=== PATIENT | female | born 1985 | race Caucasian/White ===

== ENCOUNTER → 2018-01-10 08:43 | Outpatient (REF) | payer MEDICAID, SELFPAY ==
[2018-01-10 20:56] LABS: ALT 27 U/L (12-78); AST 17 U/L (15-37); Albumin 4.4 g/dL (3.4-5.0); Alkaline Phosphatase 57 U/L (46-116); Bilirubin, Direct 0.15 mg/dL (0.00-0.20); Bilirubin, Total 0.6 mg/dL (0.2-1.0); TSH (W/Ref FT4) 2.89 uIU/mL (0.358-3.74); Total Protein 7.5 g/dL (6.4-8.2)
== END ==
LOC: NCHCN 08:43
PROVIDERS: PCP Physician Assistant Medical; Visit Provider Physician Assistant Medical
DX: E03.9 Hypothyroidism, unspecified (principal)
CPT/HCPCS: 80076; 84443

== ENCOUNTER 2018-12-25 09:19 | Outpatient (REF) | payer OTHER, SELFPAY ==
[2018-12-25 21:27] LABS: Hemoglobin A1C 5.4 % (4.5-6.2)
[2018-12-25 21:52] LABS: ALT 27 U/L (12-78); AST 14 U/L (15-37); Albumin 4.2 g/dL (3.4-5.0); Alkaline Phosphatase 50 U/L (46-116); Anion Gap 10.5 mmol/L (3-11); BUN 12 mg/dL (7-18); Bilirubin, Total 0.4 mg/dL (0.2-1.0); CO2 23.5 mmol/L (21.0-32.0); Calcium 8.9 mg/dL (8.5-10.1); Calculated LDL 133 mg/dL; Chloride 105 mmol/L (98-107); Cholesterol 196 mg/dL (50-200); Ferritin 43 ng/mL (8-388); Glucose 94 mg/dL (70-100); HDL Cholesterol 44 mg/dL (40-60); Potassium 4.6 mmol/L (3.5-5.1); Sodium 139 mmol/L (136-145); Total Protein 7.1 g/dL (6.4-8.2); Triglyceride 99 mg/dL (30-150)
== END 2018-12-25 09:39 ==
LOC: NCHCN 09:19
PROVIDERS: PCP Physician Assistant Medical; Visit Provider Physician Assistant Medical
DX: Z00.00 Encounter for general adult medical examination without abnormal findings (principal); E03.9 Hypothyroidism, unspecified; K76.9 Liver disease, unspecified; Z13.1 Encounter for screening for diabetes mellitus; Z13.220 Encounter for screening for lipoid disorders
CPT/HCPCS: 80053; 80061; 83721; 82728; 83036; 84443

== ENCOUNTER 2019-12-10 09:12 | Outpatient (REF) | payer OTHER, SELFPAY ==
--- NOTE | 2019-12-10 08:30 | PAPFT_PTH ---
PATIENT: Radha Veras LOC: [facility] U#:[id number] AGE/SX: 34/F ROOM: RE12/10/[address]: GIOVANNY Crawford : 1985 BED: DIS: 12/10/2019 SPEC #: [id number] RECD: 12/10/19 12:57 STATUS: CARMEN REBrandi #: [id number] PADMINI: 12/10/19 08:[address]: Danii Mo DEPT: [facility] Cytology RECD BY: Ashley Persaud ENTERED: 12/10/19 12:57 SP TYPE: PAPFT OT DR: Chelsey Preciado Tissues: 1 - CX/ENDOCX FOR PAP SMEARS Procedures: PAP THIN PREP/UVM Screening HPV DNA PROBE Comments: [id number]
== END 2019-12-10 09:32 ==
LOC: LBN 09:12
PROVIDERS: PCP Physician Assistant Medical; Visit Provider Nurse Practitioner Family
DX: Z12.4 Encounter for screening for malignant neoplasm of cervix (principal); Z11.51 Encounter for screening for human papillomavirus (HPV)
CPT/HCPCS: 88142; 87624

== ENCOUNTER 2020-08-06 15:15 | Outpatient (REF) | payer OTHER, SELFPAY ==
[2020-08-06 16:04] LABS: TSH 2.16 uIU/mL (0.36-3.74)
== END 2020-08-06 15:16 | disposition home or self-care (01) ==
LOC: NCHCN 15:15
PROVIDERS: PCP Physician Assistant Medical; Visit Provider Physician Assistant Medical
DX: E03.9 Hypothyroidism, unspecified (principal)
CPT/HCPCS: 84443

== ENCOUNTER 2021-03-18 08:37 | Outpatient (CLI) | payer MEDICAID, SELFPAY ==
--- NOTE | 2021-03-18 08:30 | RT.EKG_ITS ---
APPROVED REPORT Exam: Resting ECG Reason for Exam: chest discomfort Patient Location: O HR:90 bpm ECG Measurements Heart Rate 90 AXIS WV 174 P 40 QRSd 125 QRS 26 QT 374 T 42 QTc 458 Conclusion Sinus rhythm...normal P axis, V-rate 60- 99 IncRBBB
== END 2021-03-18 08:38 | disposition home or self-care (01) ==
LOC: DI.CM 08:38
PROVIDERS: PCP Physician Assistant Medical; Visit Provider Physician Assistant
DX: R07.89 Other chest pain (principal)
CPT/HCPCS: 93010

== ENCOUNTER 2021-03-18 21:32 | Outpatient (REF) | payer MEDICAID, SELFPAY ==
[2021-03-18 19:52] LABS: FREE T4 0.96 ng/dL (0.76-1.46)
== END 2021-03-18 21:33 | disposition home or self-care (01) ==
LOC: NCHCN 21:32
PROVIDERS: PCP Physician Assistant Medical; Visit Provider Physician Assistant
DX: R00.0 Tachycardia, unspecified (principal)
CPT/HCPCS: 84439; 84443

== ENCOUNTER 2021-04-23 16:29 | Outpatient (REF) | payer MEDICAID, SELFPAY ==
[2021-04-24 11:41] LABS: COVID-19 RT-PCR UVMMC Result Negative (Negative)
== END 2021-04-23 16:30 | disposition home or self-care (01) ==
LOC: NCHCN 16:29
PROVIDERS: PCP Physician Assistant Medical; Visit Provider Nurse Practitioner Family
DX: Z20.822 Contact with and (suspected) exposure to COVID-19 (principal); J32.8 Other chronic sinusitis
CPT/HCPCS: U0003

== ENCOUNTER 2021-08-25 16:12 | Outpatient (REF) | payer MEDICAID, SELFPAY ==
[2021-08-25 12:48] LABS: Abs Immature Grans 0.02 10^3/uL (0.0-0.06); Absolute Basophil Count 0.04 10^3/uL (0.0-0.2); Absolute Eosinophil Count 0.13 10^3/uL (0.0-0.7); Absolute Lymphocyte Count 1.74 10^3/uL (1.2-3.4); Absolute Monocyte Count 0.46 10^3/uL (0.1-0.8); Absolute Neutrophil Count 3.94 10^3/uL (1.2-6.7); Basophils % 0.6; Eosinophils % 2.1; HCT 41.5 % (36.0-46.0); HGB 14.2 g/dL (11.2-15.7); Immature Grans % 0.3; Lymphocytes % 27.5; MCH 29.6 pg (27.0-33.0); MCHC 34.2 % (32.0-36.0); MCV 86.5 fL (80-95); MPV 11.7 fL (8.0-11.0); Monocytes % 7.3; Neutrophils % 62.2; Nucleated RBC 0 %; Platelet Count 190 10^3/uL (130-400); RDW-SD 38.3 fL; WBC 6.33 10^3/uL (4.4-10.8)
[2021-08-25 13:06] LABS: ALT 27 U/L (14-59); AST 19 U/L (15-37); Albumin 4.4 g/dL (3.4-5.0); Alkaline Phosphatase 68 U/L (46-116); Anion Gap 8.3 mmol/L (3-11); BUN 15 mg/dL (7-18); Bilirubin, Total 0.4 mg/dL (0.2-1.0); CO2 26.7 mmol/L (21.0-32.0); CREATININE 0.9 mg/dL (0.55-1.02); Calcium 9.3 mg/dL (8.5-10.1); Chloride 103 mmol/L (98-107); Glucose 89 mg/dL (74-106); Potassium 4.1 mmol/L (3.5-5.1); Sodium 138 mmol/L (136-145); TSH (W/Ref FT4) 1.63 uIU/mL (0.36-3.74); Total Protein 7.5 g/dL (6.4-8.2)
== END 2021-08-25 16:13 | disposition home or self-care (01) ==
LOC: NCHCN 16:12
PROVIDERS: PCP Physician Assistant Medical; Visit Provider Physician Assistant Medical
DX: R11.2 Nausea with vomiting, unspecified (principal); K80.20 Calculus of gallbladder without cholecystitis without obstruction
CPT/HCPCS: 80053; 84443; 85025

== ENCOUNTER → 2021-09-21 01:25 | Outpatient (CLI) | payer MEDICAID, SELFPAY ==
--- NOTE | 2021-09-21 07:45 | DI.US_ITS ---
Exam(s) US ABDOMEN EXAM: US ABDOMEN CLINICAL HISTORY: Nause and vomiting w/o abd pain Hx gallstones,r11.2 TECHNIQUE: Ultrasound abdomen performed using standard protocol. COMPARISON: No exams were available for comparison FINDINGS: LIVER: Normal size and echogenicity. No focal liver lesions are seen.. GALLBLADDER: Several large stones.. No evidence of wall thickening. No pericholecystic fluid identif ied. MUNOZ'S SIGN: Negative. BILIARY SYSTEM: No intrahepatic or extrahepatic biliary ductal dilation. KIDNEYS: Kidneys are symmetric in size. No evidence of renal calculi. No evidence of hydronephrosis. No renal mass or cyst identified. PANCREAS: Normal where visualized. SPLEEN: Not enlarged. ABDOMINAL AORTA AND IVC: Visualized portions normal caliber. ASCITES: None seen. IMPRESSION: Cholelithiasis. DATA REPOSITORY:
== END ==
PROVIDERS: PCP Physician Assistant Medical; Visit Provider Physical Therapy Assistant
DX: R11.2 Nausea with vomiting, unspecified (principal); K80.20 Calculus of gallbladder without cholecystitis without obstruction
CPT/HCPCS: 76700

== ENCOUNTER 2021-09-28 07:31 | Outpatient (REF) | payer MEDICAID, SELFPAY ==
[2021-09-28 09:57] LABS: Source Nasal/Nares
[2021-09-28 14:03] LABS: COVID-19 PCR Negative (Negative)
== END 2021-09-28 07:32 | disposition home or self-care (01) ==
LOC: LBN 07:31
PROVIDERS: PCP Physician Assistant Medical; Visit Provider Surgery
DX: Z20.822 Contact with and (suspected) exposure to COVID-19 (principal); Z01.818 Encounter for other preprocedural examination
CPT/HCPCS: 87635

== ENCOUNTER 2021-09-29 06:20 | Day surgery (SDC) | payer MEDICAID, SELFPAY ==
--- NOTE | 2021-09-28 10:13 | PDOC.DSDIS_ITS ---
Discharge Plan Disposition Patient Disposition: HOME Condition: Good Discharge Details Reason For Visit: gallbladder removal Attending Provider: Alisha Flores Primary Care Provider: Chelsey Preciado Home Meds and New Rx's Prescriptions: New tramadol [Ultram] 50 mg tablet 50 mg PO Q6H PRNQty: 10 0RF ondansetron 4 mg tablet,disintegrating 4 mg PO Q6H PRNQty: 6 0RF Continued Mirena 20 mcg/24 hours (5 yrs) 52 mg intrauterine device 1 device IY ONCE 0RF Rx Instructions: as a single dose; placed in 06/2016 lorazepam [Ativan] 1 mg tablet 1 mg PO Q8H PRN (Reason: anxiety) Qty: 3 0RF levothyroxine 137 mcg capsule 137 mcg PO DAILY 0RF Discharge Instructions Additional Instructions: Care after Gallbladder Surgery ? ? -Pain control: ?For the first 72 hours after surgery, take you pain meds continuously and not just when you have pain.?? Alternate Tylenol 1000mg by mouth every 8 hours, and Ibuprofen 600mg every 6 hours.? Make sure you take ibuprofen with food and not on an empty stomach.? ??Use the tramadol for breakthrough pain- pain that is greater than a 7. ?- Use ICE! Ice really helps to keep the swelling down, and swelling causes pain. ??Twenty minutes on, and then off, continuously for the first 72hours.? After the first 72hrs, you can just use the Tylenol, ibuprofen or Celebrex, and ice, ?when you have pain.?? If you are taking narcotic pain medication, follow the instructions on the label and do not drive. Pain medications can make you very constipated. Make sure you are moving your bowels daily. If not, take Miralax, milk of magnesia or magnesium citrate.? - Anesthesia makes you very constipated.? Take a dose of milk of magnesia the morning after surgery. ? Use an ice bag for the first 72 hours. This helps to decrease swelling, which causes pain. It is normal to be more sore/painful and swollen towards the end of the day and first thing in the morning. ? Gallbladder surgery can make you very nauseated; use Zofran for nausea, for the first 24 hours. The nausea generally stops after 24 hours. ? Use milk of magnesia or prune juice to prevent constipation (this is a particular side effect of pain medication and anesthesia). Do not allow yourself to become constipated. ? ? Avoid fatty or greasy foods; introduce these slowly, with care, after about 1 month. ? High-fat foods include: ? Foods that are fried, like [place] fries and potato chips ? High-fat meats, such as vernon, bologna, sausage, ground beef, and ribs, pork products ? High-fat dairy products, such as cheese, ice cream, cream, whole milk, and sour cream ? Pizza ? Foods made with lard or butter ? Creamy soups or sauces ? Meat gravies ? Chocolate ? Oils, such as palm and coconut oil ? Skin of chicken or turkey ? Nuts and nut butters ? Avacadoes ? ? Start out eating very small, bland amounts of food. Do not take pain pills on an empty stomach. - You will notice purple discoloration around the incisions.? This is the ?skin glue?.? This will wear off on its own.? It is OK to shower after 24hrs.? You do not need to cover the incisions. -You should walk frequently, gradually, increasing the distance. You may climb stairs, just go slowly. ? Do not go swimming or sit in a hot tub for two weeks. ? There are no stitches to remove. ? Do not drive your car x72hrs and then only if you have no pain and can move freely. Do not drive if you are taking pain narcotic pain medications. ? You may resume sexual activity whenever pain and soreness subside, usually in 2 weeks. ? Do no lift anything over 5 lbs. for two weeks. ? You may return to work in one week, or when you feel able, provided you do not have to do any heavy lifting or prolonged standing. ? ? You should return to Dr. Flores?s office for a post-op appointment about two weeks after surgery. A follow-up should have been scheduled for you already.? If there is not, please call the Surgical Clinic at: [phone] to schedule an appointment. ? My Medications for pain and nausea are: Tylenol/ibuprofen ?and ultram- for severe pain ?and Zofran-nausea ? ? When to Call the Office: ? If the incision becomes red or swollen, or there is more than a little dr gordon from it. ? If you develop a temperature higher than 100.5 F. ? If your eyes turn yellow ? Vomiting and can?t keep fluids down ? Activity:: see above Remove Dressings/Wound Care:: 24 hours Shower/Bathe:: 24 hours Diet:: low fat Discharge Orders Discharge Orders: Discharge Order (Routine); Ordered 09/28/21 Ordered By: Alisha Flores
--- NOTE | 2021-09-28 10:16 | ROE_ITS ---
Date of service: 09/29/21 Time of Service: 08:30 Operative Note Operative Note DATE OF PROCEDURE: 09/29/21 PRE-OP DIAGNOSIS: chronic markie w/ stones POST-OP DIAGNOSIS: same PROCEDURE: lap markie SURGEON: Alisha Enrique COMPUTER INSTALLER: Lorie Ellison ANESTHESIA TYPE: Local By Surgeon and General LMA/ETT Refer to Anesthesia Record ESTIMATED BLOOD LOSS: 10 PATHOLOGY: other COMPLICATIONS: None Patient was transported to: PACU Patient's condition: stable Procedure Description: INDICATIONS: The pt is seen at the request of there PCP regarding acute on chronic cholecystitis, cholelithiasis. The pt has failed outpt conservative medical measures and is here today for laparoscopic cholecystectomy. Informed consent was obtained, explaining risks and benefits of the procedure including but not limited to bleeding, infection, pneumonia, blood clots, possible damage to bowel, bladder, blood vessels, bile ducts, possible open procedure, complications of general anesthesia and other unforetold complications. PROCEDURE: The patient agrees and is brought to the operative room suite and placed in supine position. Anesthesia was administered per the Department of Anesthesia. The patient did receive IV antibiotics. NG tube and Moore catheter are placed. The patient was prepped and draped in the usual sterile fashion using DuraPrep scrub solution. Pause for the cause was done. 20 mL of 1% buffered lidocaine was used for local anesthetization. A stab incision was made in the umbilicus and the Verres inserted. Drop test was positive and insufflation was begun. When 15 mm of pressure was noted on the monitor, the Veress was removed and #5 port inserted. The camera was inserted through the port and shows no damage to underlying structures. A 10 mm port was then placed in the epigastric position under direct visualization following creation of local field blocks as well as two 5 mm ports in the right upper quadrant. The gallbladder fundus was grasped and retracted towards the right shoulder. Infundibulum was grasped and retracted laterally. The hepat-duodenal ligament is entered. The cystic duct and artery are dissected out and the most inferior portion of the gallbladder plate is removed from the liver and the critical view of safety was obtained after clearing away all fatty material. Endo Clips were placed across the duct and artery and these structures are divided. The remainder of the gallbladder was excised from the liver bed. The gallbladder was placed in a bag and brought out. Examination of the gallbladder shows indeed the cystic duct and artery to have been divided. The remainder of the abdomen was copiously irrigated with a liter of saline. All saline is removed. There is no bleeding or bile leakage from the liver bed or the clips sites. An EndoClose needle was used to close the 10 mm port site with an 0 Vicryl. All ports and instruments are removed. SPonge and needle counts are correct. Pneumoperitoneum is evacuated and the port sites are monitored to make sure there is no bleeding at the time of desufflation. The epigastric port site is instilled w/ 10cc Experel at the time of closure. ?Port sites are irrigated and the skin is closed with 4-0 Monocryl in a running subcuticular fashion. Skin glue sterile dressings are applied. The patient tolerated the procedure well without complications, transferred to the recovery room in stable condition. ALISHA ENRIQUE, DO ?
[2021-09-29] VITALS (12 sets, daily range): BP systolic 137–152; BP diastolic 57–96; PULSE 71–89; RESP 16–23; TEMP 36.3–36.6; O2SAT 96–100; BMI 33.7
[2021-09-29] MEDS: Gabapentin 300 MG CAP 600 MG PO (06:49)
[2021-09-29] MEDS: Lactated Ringers 1,000 ML 80 ML IV (06:58)
--- NOTE | 2021-09-29 06:58 | W.ANESPRE ---
General Info Date of Service Date Performed: 09/29/21 Height: 5 ft 7 in Weight: 97.7 kg Body Mass Index (BMI): 33.7 Surgical Procedure: Operation Date: 09/29/21 08:25 Proposed Procedure Side Surgeon p Cholecystectomy Laparoscopic Alisha Flores DO Meds Allergies and Home Medications Allergies Allergy/AdvReac Type Severity Reaction Status Date / Time Penicillins AdvReac Mild yeast Verified 09/29/21 06:38 infection Home Medication Medication Instructions Recorded levonorgestrel 20 mcg/24 hours (7 1 device IY ONCE 12/10/19 yrs) 52 mg intrauterine device (Mirena) lorazepam 1 mg tablet (Ativan) 1 mg PO Q8H PRN #3 tab 03/18/21 levothyroxine 137 mcg capsule 137 mcg PO DAILY 08/28/21 Current Visit Medications: Current Medications Generic Name Dose Route Start Last Admin Trade Name Freq PRN Reason Stop Dose Admin Acetaminophen 1,000 mg 09/29/21 06:00 Acetaminophen 500 Mg Tab PO 10/28/21 23:59 PREOP BONI Gabapentin 600 mg 09/29/21 06:00 09/29/21 06:49 Gabapentin 300 Mg Cap PO 10/28/21 23:59 600 mg PREOP BONI Administration Hydromorphone HCl 0.2 mg 09/28/21 10:12 Hydromorphone 2 Mg/Ml Vial IVP Q1H PRN PRN Ondansetron HCl 4 mg/ Sodium 52 mls @ 200 mls/hr 09/28/21 10:12 Chloride IVPB Q6H PRN PRN Ringer's Solution 1,000 mls @ 80 mls/hr 09/29/21 06:00 IV 10/28/21 23:59 INFUSION BONI Cefazolin Sodium/Dextrose 2 gm in 50 mls @ 100 mls/hr 09/29/21 06:00 Ancef Duplex IVPB 10/28/21 23:59 PREOP BONI IV Miscellaneous Supplies 1 each 09/29/21 06:00 Iv Access IV 10/28/21 23:59 DIRECTED OBNI Sodium Chloride 0 ml 09/29/21 06:00 Normal Saline Flush 10 Ml Syr IV 10/28/21 23:59 PRN PRN Sodium Chloride 0 ml 09/29/21 06:00 Normal Saline 10 Ml Vial IJ 10/28/21 23:59 DIRECTED PRN Sterile Water 0 ml 09/29/21 06:00 Water,Injection,Sterile 10 Ml Vial IJ 10/28/21 23:59 DIRECTED PRN PFSH Active Problems Active Problems: Problem Status Onset Code Hypothyroidism 05/02/13 E03.9 Rosacea L71.9 IUD surveillance Z30.431 Nausea & vomiting R11.2 Gallstones K80.20 Diarrhea R19.7 Medical History Medical History Anxiety Bladder pain (08/03/17) Onset 5yrs ago. Begins a week prior to menses. Stabbing pain in bladder when trying to void. No hematuria. Will begin Amitryptiline daily and Pyridium with onset of sx. 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 G3 13#7oz which had dystocia during and day of life#2 For C/S delivery regardless of gestational age Sinusitis Medical History Comments:: Severe N/V after waking up from anesthesia Surgical History Surgical History (Updated 09/29/21 @ 06:38 by Cathy Guy, RN) History of section History of elective section 2016-declined repeat vaginal delivery after the of her macrosomic daughter. Hx of bilateral breast reduction surgery Tobacco Smoking/Tobacco Use Status: Never Passive smoking exposure: No Alcohol Alcohol Intake: current Alcohol intake frequency: holidays/special occasions only Substance Use Substance use: Never Substance use type: does not use Prental History History 4 Para Hx # Term Pregnancies 4 Multiple births Hx # Pregnancies Ectopic pregnancies AB induced Hx Number of Living Children AB spontaneous Vital Signs and Lab Results Vital Signs Most Recent Vital Signs in EMR: Most Recent Vital Signs Temp Pulse Resp BP Pulse Ox 36.6 C 89 17 141/84 H 98 09/29/21 06:40 09/29/21 06:40 09/29/21 06:40 09/29/21 06:40 09/29/21 06:40 Point of Care Results Point of Care Results: POC- Test(urine) Negative 09/29/21 06:47 Lab Results Blood Type / Crossmatch: No Data to Display Complete Blood Count: No Data to Display Complete Metabolic Panel: No Data to Display Liver Function Panel: No Data to Display Coagulation Panel: No Data to Display Cardiac Panel: No Data to Display Arterial Blood Gas: No Data to Display Venous Blood Gas: No Data to Display Pancreas Panel: No Data to Display Thyroid Panel: No Data to Display Infectious Disease: Coronavirus (COVID-19)(PCR) Negative (Negative) 09/28/21 07:10 09/28/21 Coronavirus 2019 Source Nasal/Nares 09/28/21 07:10 09/28/21 Blood Cultures: No Data to Display Toxicology Panel: No Data to Display Panel: No Data to Display Anesthesia Assessment and Plan Anesthesia History Personal History: PONV Family History: Other Exercise Tolerance Exercise Tolerance: Metabolic Equivalents>4 Pertinent Negatives Pertinent Negatives: No Major Cardiovascular Symptoms or Complaints and No Major Pulmonary Symptoms or Complaints Cardiac & Pulmonary Exam Cardiac Exam: Normal S1/S2 Heart Sounds Pulmonary Exam: Clear Bilateral Breath Sounds Implantable Cardiac Device Does patient have a Pacemaker or an ICD?: No Airway Exam Known Difficult Airway: No Mallampati Class: 2 Mouth Opening: Normal (> 3cm) Thyromental Distance: Greater than 3 cm Neck Range of Motion: Full ROM Neck Circumference: Normal Teeth Condition: Normal Dentition ASA Classification ASA Score: ASA 2 Emergency Case?: No NPO Status NPO Status: NPO Clears >2 hours, Solids >8 hours Status Status: Negative HCG Anesthesia Plan Resuscitation Status: Full Code Anesthesia Technique: General Anesthesia Airway Planned: Endotracheal Tube Monitors Used: Standard Monitors and SedLine
[2021-09-29] MEDS: Acetaminophen 500 MG TAB 1000 MG PO (07:29)
[2021-09-29] MEDS: ceFAZolin 2 GM/50 ML BAG IVPB (08:28)
[2021-09-29] MEDS: Bupivacaine 0.25% Pres-Free 30 ML VIAL (09:07)
--- NOTE | 2021-09-29 09:22 | GB_PTH ---
PATIENT: Radha Veras LOC: [facility] U#:[id number] AGE/SX: 36/F ROOM: RE09/29/[address]: Alisha Flores : 1985 BED: DIS: 09/29/2021 SPEC #: [id number] RECD: 09/29/21 12:57 STATUS: CARMEN REQ #: [id number] PADMINI: 09/29/21 09:[address]: Alisha Flores DEPT: Surgical Specimen RECD BY: Ashley Persaud ENTERED: 09/29/21 12:57 SP TYPE: GB OTHR DR: Chelsey Preciado Tissues: 1 - GALLBLADDER Procedures: GROSS AND MICRO LEVEL 3 Comments: [id number]
[2021-09-29] MEDS: Normal Saline 10 ML VIAL IJ (10:42)
[2021-09-29] MEDS: HYDROmorphone 2 MG/ML VIAL IVP ×2 (10:42→11:05)
--- NOTE | 2021-09-29 11:17 | NUR.NOTE ---
Nurse called PACU for update since pt. was in PACU since 10:00 am. Pt's was called to update about pt's status Nursing Note:
--- NOTE | 2021-09-29 12:14 | W.ANESPOSTOP ---
Postoperative Evaluation Date, Time and Location Date Performed: 09/29/21 Time Performed: 12:15 Patient Location: Day Surgery Unit Vital Signs Most Recent Imported Vital Signs: Most Recent Vital Signs Temp Pulse Resp BP Pulse Ox 36.6 C 84 17 142/90 H 96 09/29/21 12:08 09/29/21 12:08 09/29/21 12:08 09/29/21 12:08 09/29/21 12:08 Pain Score Most Recent Pain Score: Most Recent Pain Score Pain Level 6 09/29/21 12:08 Assessment Mental Status: Awake (Alert & Oriented to Patient Baseline) Airway and Respiratory Function: Patent airway with normal (patient baseline) respiratory exam Cardiovascular Function: Hemodynamically Stable Hydration Status: Adequately Hydrated Nausea & Vomiting: No Nausea or Vomiting Pain: Pain is tolerable per patient Peripheral Nerve Block: Patient did not receive a nerve block
[2021-09-29] MEDS: traMADol 50 MG TAB PO (13:20)
== END 2021-09-29 14:06 | disposition home or self-care (01) ==
LOC: SUR 06:20
PROVIDERS: PCP Physician Assistant Medical; Visit Provider Surgery
PROC: 0FT44ZZ Resection of Gallbladder, Percutaneous Endoscopic Approach (ICD-10-PCS; CPT 47562; principal; 2021-09-29 08:15)
DX: K80.10 Calculus of gallbladder with chronic cholecystitis without obstruction (principal); E03.9 Hypothyroidism, unspecified; L71.9 Rosacea, unspecified; F41.9 Anxiety disorder, unspecified; K31.A0 Gastric intestinal metaplasia, unspecified
CPT/HCPCS: 47562; 81025; 88304; J0690; J1100; J1200; J1885; J2001; J2250; J2405

== ENCOUNTER 2021-11-20 10:32 | Outpatient (REF) | payer MEDICAID, SELFPAY ==
[2021-11-22 09:26] LABS: HSV 1 DNA Result Negative (Negative); HSV 2 DNA Result Negative (Negative); Varicella Zoster DNA Result Negative ((See Note))
== END 2021-11-20 10:33 | disposition home or self-care (01) ==
LOC: NCHCN 10:32
PROVIDERS: PCP Physician Assistant Medical; Visit Provider Physician Assistant Medical
DX: R21 Rash and other nonspecific skin eruption (principal); R23.8 Other skin changes
CPT/HCPCS: 87529; 87798

== ENCOUNTER 2022-08-25 14:52 | Outpatient (REF) | payer MEDICAID, SELFPAY ==
[2022-08-26 12:17] LABS: TSH (W/Ref FT4) 3.89 uIU/mL (0.36-3.74)
[2022-08-26 12:48] LABS: FREE T4 0.99 ng/dL (0.76-1.46)
[2022-08-26 13:26] LABS: Hemoglobin A1C 5.4 % (<5.7)
== END 2022-08-25 14:53 | disposition home or self-care (01) ==
LOC: NCHCN 14:52
PROVIDERS: PCP Physician Assistant Medical; Visit Provider Physician Assistant Medical
DX: E03.9 Hypothyroidism, unspecified (principal); Z86.32 Personal history of gestational diabetes
CPT/HCPCS: 83036; 84439; 84443

== ENCOUNTER 2022-09-06 11:34 | Outpatient (REF) | payer MEDICAID, SELFPAY ==
--- NOTE | 2022-09-06 10:45 | SKI_PTH ---
PATIENT: Radha Veras LOC: [facility]#:[id number] AGE/SX: 37/F ROOM: RE09/06/[address]: Gillian Sanchez : 1985 BED: DIS: 09/06/2022 SPEC #: [id number] RECD: 09/06/22 18:10 STATUS: CARMEN REBrandi #: [id number] PADMINI: 09/06/22 10:[address]: Gillian Sanchez DEPT: Surgical Specimen RECD BY: Ashley Persaud ENTERED: 09/06/22 18:15 SP TYPE: HOANG ZAVALETA DR: Chelsey Preciado Tissues: 1 - SKIN BIOPSY(SHAVE/PUNCH) 2 - SKIN BIOPSY(SHAVE/PUNCH) Procedures: SKIN LEVEL 4 Comments: [id number]
== END 2022-09-06 11:35 | disposition home or self-care (01) ==
LOC: NCHCN 11:34
PROVIDERS: PCP Physician Assistant Medical; Visit Provider Family Medicine
DX: D23.71 Other benign neoplasm of skin of right lower limb, including hip (principal); L90.5 Scar conditions and fibrosis of skin; L85.8 Other specified epidermal thickening
CPT/HCPCS: 88305

== ENCOUNTER 2022-12-13 12:47 | Outpatient (REF) | payer MEDICAID, SELFPAY ==
[2022-12-13 16:56] LABS: TSH (W/Ref FT4) 1.71 uIU/mL (0.36-3.74)
== END 2022-12-13 12:48 | disposition home or self-care (01) ==
LOC: NCHCN 12:47
PROVIDERS: PCP Physician Assistant Medical; Visit Provider Physician Assistant Medical
DX: E03.9 Hypothyroidism, unspecified (principal)
CPT/HCPCS: 84443

== ENCOUNTER 2023-05-27 15:53 | Outpatient (REF) | payer MEDICAID, SELFPAY | END 2023-05-27 15:54 | disposition home or self-care (01) | LOC: LBN 15:53 | PROVIDERS: PCP Physician Assistant Medical; Visit Provider Physician Assistant Medical | DX: J02.9 Acute pharyngitis, unspecified (principal) | CPT/HCPCS: 87070 ==

== ENCOUNTER 2023-10-14 08:52 | Outpatient (REF) | payer BC, SELFPAY ==
[2023-10-14 14:31] LABS: Hemoglobin A1C 5.8 % (<5.7)
[2023-10-14 14:50] LABS: ALT 26 U/L (14-59); AST 12 U/L (15-37); Albumin 4.3 g/dL (3.4-5.0); Alkaline Phosphatase 50 U/L (46-116); Anion Gap 10.4 mmol/L (3-11); BUN 13 mg/dL (7-18); Bilirubin, Total 0.3 mg/dL (0.2-1.0); CO2 25.6 mmol/L (21.0-32.0); CREATININE 0.8 mg/dL (0.55-1.02); Calcium 9.3 mg/dL (8.5-10.1); Calculated LDL 149 mg/dL (<100); Chloride 105 mmol/L (98-107); Cholesterol 224 mg/dL (<200); Estimated GFR 97.87 (mL/min/1.73m2); Glucose 104 mg/dL (74-106); HDL Cholesterol 56 mg/dL (40-60); Potassium 4.4 mmol/L (3.5-5.1); Sodium 141 mmol/L (136-145); TSH (W/Ref FT4) 1.83 uIU/mL (0.36-3.74); Total Protein 7.5 g/dL (6.4-8.2); Triglyceride 98 mg/dL (<150)
== END 2023-10-14 08:53 | disposition home or self-care (01) ==
LOC: NCHCN 08:52
PROVIDERS: PCP Physician Assistant Medical; Visit Provider Physician Assistant Medical
DX: E03.9 Hypothyroidism, unspecified (principal); E66.9 Obesity, unspecified
CPT/HCPCS: 80053; 80061; 83036; 84443

== ENCOUNTER 2024-01-03 13:25 | Outpatient (REF) | payer BC, SELFPAY ==
--- NOTE | 2024-01-03 11:30 | PAPFT_PTH ---
PATIENT: Radha Veras LOC: [facility] U#:[id number] AGE/SX: 38/F ROOM: RE01/03/[address]: Manju Ly MD : 1985 BED: DIS: 01/03/2024 SPEC #: [id number] RECD: 01/03/24 17:21 STATUS: CARMEN REBrandi #: [id number] PADMINI: 01/03/24 11:[address]: Manju Ly DEPT: [facility] Cytology RECD BY: Ashley Persaud ENTERED: 01/03/24 17:22 SP TYPE: PAPFT OTHR DR: Chelsey Preciado Tissues: 1 - CX/ENDOCX FOR PAP SMEARS Procedures: PAP THIN PREP/[facility] Screening HPV DNA PROBE Comments: [id number] (HPV 16 & 18/45)
== END 2024-01-03 13:26 | disposition home or self-care (01) ==
LOC: LBN 13:25
PROVIDERS: PCP Physician Assistant Medical; Visit Provider Obstetrics & Gynecology
DX: Z12.4 Encounter for screening for malignant neoplasm of cervix (principal)
CPT/HCPCS: 88142; 87624

== ENCOUNTER 2024-05-13 12:45 | Emergency (ER) | payer BC, SELFPAY ==
[2024-05-13] VITALS (15 sets, daily range): BP systolic 163–183; BP diastolic 110–125; PULSE 82–94; RESP 12–28; TEMP 36.5–36.6; O2SAT 95–99
--- NOTE | 2024-05-13 13:23 | W.ED.GENAD ---
Discharge Plan Disposition Patient Disposition: Home Condition: Stable Discharge Details Clinical Impression: Sinusitis, Headache, Elevated blood pressure reading Primary Care Provider: Chelsey Preciado ED Provider: David Juárez Home Meds and New Rx's Prescriptions: New amoxicillin-pot clavulanate 875-125 mg tablet 1 tab PO BID 7 Days Qty: 14 0RF No Action Mirena 20 mcg/24 hours (5 yrs) 52 mg intrauterine device 1 device IY ONCE Rx Instructions: as a single dose; placed in 06/2016 lorazepam [Ativan] 1 mg tablet 1 mg PO Q8H PRN (Reason: anxiety) Qty: 3 0RF levothyroxine 137 mcg capsule 137 mcg PO DAILY Discharge Instructions Instructions: Sinus Headache (DC) Additional Instructions: Stop taking decongestants or Sudafed, this is likely elevating your blood pressure Start the antibiotic as prescribed Make sure to stay hydrated. Use Zofran as needed Use atzp-csz-dhjngho Flonase and Mucinex to help with your congestion Keep a log of your blood pressure and follow-up with your PCP for reevaluation. HPI General Date/Time Provider Initiated Documentation: 05/13/24 13:04. Limitations to Documentation: no limitations. Information obtained by: patient. HPI Narrative: 38-year-old female with out past medical history including hypothyroid presents for evaluation of sinus congestion and headache. She reports that she has been having sinus symptoms for the last month and was concerned that she might have a sinus infection. She has not been having any fever. She has been taking Sudafed kjcf-wrr-xzhzghr. She is occasionally using Flonase. Has not tried any other medications for relief. She reports this morning she woke up with headache. She reports some photophobia and nausea. She has had 2 episodes of vomiting. This morning but took a Zofran and feels like her symptoms are improved Related Data Home Medications ?Medication ?Instructions ?Recorded ?Confirmed levonorgestrel 21 mcg/24 hr (up to 1 device intrauterine ONCE 12/10/19 05/13/24 8 years) 52 mg intrauterine device (Mirena) lorazepam 1 mg tablet (Ativan) 1 mg PO Q8H PRN anxiety #3 tabs 03/18/21 05/13/24 levothyroxine 137 mcg capsule 137 mcg PO DAILY 08/28/21 05/13/24 amoxicillin 875 mg-potassium 1 tab PO BID 7 days #14 tabs 05/13/24 clavulanate 125 mg tablet Previous Rx's ?Medication ?Instructions ?Recorded lorazepam 1 mg tablet (Ativan) 1 mg PO Q8H PRN anxiety #3 tabs 03/18/21 amoxicillin 875 mg-potassium 1 tab PO BID 7 days #14 tabs 05/13/24 clavulanate 125 mg tablet Allergies Allergy/AdvReac Type Severity Reaction Status Date / Time No Known Allergies Allergy Verified 05/13/24 13:00 General Stated Complaint: Headache LUIS DANIEL: 3 Exam Narrative Exam Narrative: Review of Systems: All systems reviewed & are unremarkable except as noted in HPI and below Well-developed, no acute distress NCAT PERRL, normal conjunctiva mild max sinus tenderness OP clear bilateral TM wtih clear effusion, L>R RRR no murmur Unlabored respiratory effort CTAB Extremities w/o edema no focal neurologic deficits Course Vital Signs Vital signs: Vital Signs Temperature 36.5 C 05/13/24 12:52 Pulse 92 H 05/13/24 12:52 Respiratory Rate 14 05/13/24 12:52 Blood Pressure 183/112 H 05/13/24 12:52 Pulse Oximetry 96 05/13/24 12:52 Temperature 36.5 C 05/13/24 12:52 Temperature Source Oral 05/13/24 12:52 Pulse 88 05/13/24 13:07 Respiratory Rate 14 05/13/24 12:52 Respiratory Effort Normal 05/13/24 13:01 Blood Pressure 163/112 H 05/13/24 13:07 Blood Pressure Position Sitting 05/13/24 12:52 Pulse Oximetry 96 05/13/24 12:52 Oxygen Delivery Method Room Air 05/13/24 12:52 Oxygen Flow Rate 0 05/13/24 12:52 Pain Level 10 05/13/24 12:52 Medical Decision Making Emergent evaluation of headache, sinus congestion. Patient has noted to be hypertensive. She states this is something that she has been watching with her PCP, but is not currently on medication. She has been taking a lot of dtfn-jte-piowvgv Sudafed the last month because of her sinus congestion. I do not suspect hypertensive emergency. She has no focal neurologic deficits. I do not suspect an intracranial process. Will give medications for headache and reassess. Patient reports resolution of her symptoms. Her blood pressure is still elevated. She states that this is a problem when she goes to her primary care doctor but she keeps a log of her blood pressures at home and it is normal. She states that she is feeling hungry. At this time I think she is ready to go home. Will prescribe Augmentin for her sinus infection as the symptoms have been severe and ongoing for quite some time now.. Recommend close follow-up with PCP Quality:SDOH Health Related Social Needs: No Data to Display PFSH All Active Problems (Updated 05/13/24 @ 14:24 by David Juárez MD) Elevated blood pressure reading (Acute) Headache (Acute) Sinusitis (Acute) Dyspareunia in female (Acute) Medical History History of fourth degree perineal laceration After delivery of 13lb 7oz infant History of 2015 @[facility]: G3, 13#7oz infant which had dystocia during and day of life#2. Liver disease Anxiety IUD surveillance Rosacea Was referred to [facility] dermatology in [facility] Bladder pain (08/03/17) Onset 5yrs ago. Begins a week prior to menses. Stabbing pain in bladder when trying to void. No hematuria. Will begin Amitryptiline daily and Pyridium with onset of sx. Hypothyroidism 2006 Dx Surgical History History of cholecystectomy (~09/29/21) Hx of bilateral breast reduction surgery History of elective section 2016-declined repeat vaginal delivery after the of her macrosomic daughter. Family History Mother Hypertension Thyroid disorder Other Diabetes Heart disease Hyperlipidemia Social History Smoking/Tobacco Use Status: Never Smoking risk assessment performed?: Yes Alcohol Intake: current Alcohol Intake frequency: holidays/special occasions only Drug use: Never Substance use type: does not use Household members: spouse and children Number of Children: 3 Pets and animals: Yes (Yellow lab-Tinsel) Pets and animals: dog(s) Sexually active: Yes Seatbelt use: always Do you feel safe at home: Yes Do you feel safe in your relationship?: Yes History History 4 Para Hx # Term Pregnancies 4 Multiple births Hx # Pregnancies Ectopic pregnancies AB induced Hx Number of Living Children 3 AB spontaneous Past Pregnancies Del. Date GA/Weeks # Preg Succ Route Wgt Sex Labor Lgth Anesthesia Location Prov Complic 08/23/06 40 No Yes vaginal 3883.885 g Male 24hr 07/22/09 41 No Yes vaginal 4337.477 g Male [facility] [place] 05/20/15 39 No vaginal 6.095 kg Female [facility] 05/02/16 38 No Yes 3968.933 g Female [facility] [place] Delivery Date: 08/23/06 Last Updated by: Manju Ly MD Vacuum-assisted VD Delivery Date: 05/20/15 Last Updated by: Manju Ly MD Macrosomia, shoulder dystocia, hypoxia, demise at 2 days old @[facility] Delivery Date: 05/02/16 Last Updated by: Manju Ly MD PCS due to h/o 4th degree and prior baby with macrosomia, shoulder dystocia and
[2024-05-13] MEDS: diphenhydrAMINE 25 MG CAP 50 MG PO (13:36)
[2024-05-13] MEDS: Metoclopramide 10 MG TAB PO (13:36)
[2024-05-13] MEDS: Dexamethasone 4 MG TAB 8 MG PO (14:25)
== END 2024-05-13 14:38 | disposition home or self-care (01) ==
PROVIDERS: Emergency Provider Emergency Medicine; PCP Physician Assistant Medical
DX: J32.9 Chronic sinusitis, unspecified (principal); R51.9 Headache, unspecified; R03.0 Elevated blood-pressure reading, without diagnosis of hypertension; E03.9 Hypothyroidism, unspecified
CPT/HCPCS: 99283; J8540

== ENCOUNTER 2024-06-25 13:27 | Outpatient (REF) | payer BC, SELFPAY ==
--- OUTSIDE RECORDS SUMMARY | 2024-06-25 13:29 | XMS_ITS | Clinical Summary ---
Author Organization [facility] Address [facility] [place] [address] Care Team Providers Care Hospitality Associate Name Role Phone Chelsey Preciado Primary Care Provider +1- [phone] Allergies Active Allergy Reactions Criticality Noted Date Comments Acetaminophen Other (See Comments) Medium 06/08/2021 Pt reports she had jaundice following tylenolMD told her to avoid further acetaminophen. Medications Medication Sig Dispensed Refills Start Date End Date Status levothyroxine (SYNTHROID) 137 mcg Tablet Take 137 mcg by mouth daily. Active ondansetron (Zofran) 4 mg Tablet Take 1 tablet by mouth every 8 hours as needed for Nausea. 20 tablet 06/10/2021 Active Additional Information Patient not taking.Reported on 01/04/2022 Active Problems Problem Noted Date Diagnosed Date Transaminitis 12/22/2016 care following vaginal delivery 05/21 Immunizations Name Administration Dates Next Due Rho(D) Immune Globulin (RhoGAM),IM 05/22/2015 Family History Medical History Relation Comments Breast Cancer Neg Hx Social History Tobacco Use Types Packs/Day Years Used Date Smoking Tobacco: Never Smokeless Tobacco: Never Tobacco Cessation:Counseling Given: No Comments:n/a Alcohol Use Standard Drinks/Week Comments Yes 0 (1 standard drink = 0.6 oz pur e alcohol) occasional Sex and Gender Information Value Date Recorded Sex Assigned at Female 04/08/2021 1:54 PM EDT Gender Identity Female 04/08/2021 1:54 PM EDT Sexual Orientation Straight 04/08/2021 1: 54 PM EDT Last Filed Vital Signs Vital Sign Reading Time Taken Comments Blood Pressure 148/90 2021 6:30 PM EST Pulse 77 2021 5:19 PM EST Temperature 36 ??C (96.8 ??F) 2021 5:19 PM EST Respiratory Rate 16 2021 6:30 PM EST Oxygen Saturation 92% 2021 6:30 PM EST Inhaled Oxygen Concentration - - Weight 94.4 kg (208 lb 1.6 oz) 2021 1:27 P M EST Height 170.2 cm (5' 7) 2021 1:27 PM EST Body Mass Index 32.59 2021 1:27 PM EST Plan of Treatment Health Maintenance Due Date Last Done Comments HIV screen 2005 Hepatitis B vaccine (0-59 yrs) (1) 2006 Tetanus/Diphtheria/Pertussis Vaccines (1 - Tdap) 06/09 HPV test 2017 PAP Smear 2017 Covid-19 Vaccine (2023- season) 2024 Influenza (Flu) vaccine (1 o f 1 - Influenza standard series) 02/05/2024 Hepatitis C Screening Completed 12/22/2016 Procedures Procedure Name Priority Date/Time Associated Diagnosis Comments HEPATITIS C ANTIBODY Routine 12/22/2016 3:15 AM EDT from Last 3 Months or Most Recently Relevant to Health Maintenance Results * Hepatitis C Antibody (12/22/2016 3:15 AM EDT) Hepatitis C Antibody Negative Negative [facility] Comment: An updated Hepatitis C Ab assay reagent was implemented on 08/18/16. Please contact Dr. Tolbert at [phone] with any questions or concerns. Blood specimen (specimen) 12/22/2016 3:15 AM EDT 12/22/2016 3:39 AM EDT Narrative Resulting Agency Comment Spec In Lab Jose Daniel Weir MD CHEMISTRY ORDERABLES [facility] [place] [address] from Last 3 Months or Most Recently Relevant to Health Maintenance Advance Directives * Full Code (Latest Code Status on File) Date Activated Date Inactivated Comments 12/22/2016 2:42 AM 12/22/2016 5:18 PM Question Answer Comments Does patient have capacity to make decision: Yes * Full Code Date Activated Date Inactivated Comments 05/21/2015 10:23 AM 05/22/2015 2:29 PM Question Answer Comments Does patient have capacity to make decision: Yes Care Teams Hospitality Associate Relationship Specialty Start Date End Date Chelsey Preciado PA [address] [place] [address] PCP - General Family Medicine 02/08/21
--- OUTSIDE RECORDS SUMMARY | 2024-06-25 13:29 | XMS_ITS | Encounter Summary ---
[place] [address] Care Team Providers Care Lemon Picker Name Role Phone Cehlsey Preciado Primary Care Provider +1- [phone] Encounter Details Date Type Department Care Team (Late st Contact Info) Description 06/17/2021 Telephone [place] [id number] Mindi Wong Social History Tobacco Use Types Packs/Day Years Used Date Smoking Tobacco: Never Smokeless Tobacco: Never Comments:n/a Alcohol Use Standard Drinks/Week Comments Yes 0 (1 standard drink = 0.6 oz pur e alcohol) occasional Sex and Gender Information Value Date Recorded Sex Assigned at Female 04/08/2021 1:54 PM EDT Gender Identity Female 04/08/2021 1:54 PM EDT Sexual Orientation Straight 04/08/2021 1: 54 PM EDT documented as of this encounter Miscellaneous Notes * Telephone Encounter - Mindi Wong - 06/17/2021 11:42 AM EST -lm to replaced by [facility] 6mth f/u Looking at 12/15/21 poss documented in this encounter Plan of Treatment Not on file documented as of this encounter Visit Diagnoses Not on filedocumented in this encounter Care Teams Lemon Picker Relationship Specialty Start Date End Date Chelsey Preciado PA [address] [place] [address] PCP - General Family Medicine 02/08/21 documented as of this encounter
--- OUTSIDE RECORDS SUMMARY | 2024-06-25 13:29 | XMS_ITS | Encounter Summary ---
Author Organization [facility] Address [facility] [place] [address] Care Team Providers Care Thread Winder Automatic Name Role Phone Chelsey Preciado Primary Care Provider +1- [phone] Reason for Referral * Consultation (Routine) - Closed Specialty Diagnoses / Procedures Referred By Dayna mendoza Referred To Contact Dermatology Diagnoses Rash and other nonspecific skin eruption Chelsey Preciado PA [address] [place] [address] [facility] D[facility]at[facility] [address] [place] [address] Referral ID Status Reason Start Date Expiration Date V isits Requested Visits Authorized [id number] Closed Consult, Test & Treat PCP Updated and/or Approved 12/22/2021 12/22/2022 12 12 Encounter Details Date Type Department Care Team (Latest Contact Info) Description 12/22/2021 Transcribe Orders eDH Incoming Referrals [phone] Chelsey Preciado PA [address] [place] [address] Rash and other nonspecific skin eruption Social History Tobacco Use Types Packs/Day Years [...] PM EDT documented as of this encounter Plan of Treatment Scheduled Referrals Name Type Priority Associated Diagnoses Orde r Schedule Referral to Dermatology Outpatient Referral Routine Rash and other nonspecific skin eruption Ordered: 12/22/2021 documented as of this encounter Visit Diagnoses Diagnosis Rash and other nonspecific skin eruption documented in this encounter Care Teams Thread Winder Automatic Relationship Specialty Start Date End Date Chelsey Preciado PA [address] [place] [address] PCP - General Family Medicine 02/08/21 documented as of this encounter
--- OUTSIDE RECORDS SUMMARY | 2024-06-25 13:29 | XMS_ITS | Encounter Summary ---
Author [facility] [place] [address] Care Team Providers Care Space Sciences Director Name Role Phone Chelsey Preciado Primary Care Provider +1- [phone] Encounter Details Date Type Department Care Team (Latest Contact Info) Description 06/17/2021 10:00 AM EST Clinical Support [place] [address] Follow-up examination, following other surgery Social History Tobacco Use Types Packs/Day Years [...] PM EDT documented as of this encounter Patient Instructions * Patient Instructions* Lori Ramirez RN - 06/17/2021 10:00 AM EST Patient Instructions Follow up: in [address] Shaikh or sooner with any concerns Activity Restrictions: From the date of your surgery we would request that you don't do any heavy, lifting, pushing, pulling, anything over 5 pounds for 6 weeks after your surgery, Unless other restrictions were discussed with your surgeon. Wear compression bra for 6 weeks after surgery, no underwire for 6 months Spitting sutures: Occasionally an area of redness and tenderness develops where a dissolving stitchbecomes irritated and pushes to the surface. This stitch is clear or white and looks like fish line. If this occurs, it is not an emergency. You may clip the stitch or call the clinic for an appointment with the nurse. Signs of Infection : A temperature over 100.4 F or 38 C. Redness at the incision line that is beginning to spread away from the incision after the first 48 hours. Yellow pus-like or foul smelling drainage larger than a dime size from the incision or drain sites. Increased pain / discomfort that is not relieved by your pain medicine such as extra strength tylenol, or NSAIDS -SCAR MASSAGE TECHNIQUE: to begin 4-6 weeks following surgery What is a scar? When an injury occurs, the body immediately begins to repair itself & the area becomes swollen & sore. Eventually small collagen fibers form, becoming a solid tissue that results in a scar. This scar will continue to change in appearance for 1-2 years. Ideally, a scar is smooth & flat, blending in with the surrounding skin. However, some scars may become highly visible & unattractive due to factors such as your age, scar location & size, nutrition, genetics, or infection. A hypertrophic scar occurs when there is an excess production of collagen tissue that is elevated but remains within the wound boundaries. The scar is tense, red, & can be associated with itching & tenderness. A hypertrophic scar can be ordinary (usually stabilizes in 3 months & may even get smaller and smoother) or keloid. The keloid scar invades nearby tissue that was not part of the original wound, tends to enlarge even after 6 months & does not get softer. Will scar massage make my scars disappear? Nothing can make scars disappear. However, massaging the scar assists the body in breaking down thescar tissue to give it a flatter, softer, appearance. Massage also mobilizes the scar, preventing it from adhering to underlying tissue, tendons, & nerves. You can make the greatest difference in the appearance of the scar if you massage it in the first 3months. What should I use on my scars? You will hear many recommendations. This clinic finds that it is the massage itself that reduces the scar & not necessarily the choice of ointments or creams. We do discourage the use of Vitamin E oil, however, due to studies that have reported scar inflammation & deterioration. How do I massage my scars? Apply the lotion or cream into the scar 3-4 times a day for 8 weeks on new scars, and 3-4 times perday for 3 to 6 months on existing scars. Using your finger, apply pressure to the scar in a crosswise & circular direction, bearing down as hard as tolerated. Remember to protect your scar from the sun, especially in the first 6-12 months, by using a moisturizer with sunblock and wearing a physical barrier (ie: a hat) when possible For any questions or concerns, please call our nurse's line at [phone] M - F 8 - 5 For after hours, and on weekends; Call [phone] and ask for our plastic surgeon application support developer documented in this encounter Progress Notes * Lori Ramirez RN - 06/17/2021 10:00 AM EST Reason for Visit: Postoperative Evaluation s/p 06/09/21 Bilateral breast reduction (Freed) POD # 8 Radha is here for an incision check, review pathology report and darvin bra fitting. Subjective: Radha states she has mild discomfort, she states has had good relief from extra strength tylenol and motrin. Radha states she feels much better and denies nausea, fevers and chills. Objective: Bruising: mild bilaterally breasts Swelling: mild bilaterally breasts Sutures absorbable,,incision well approximated, skin glue intact Bilateral breasts with good symmetry, NACs with good perfusion Pathology report reviewed - benign breast tissue Darvin bra fitted Assessment: No signs of delayed healing,erythema,or fluid collection.Incisions CDI. Plan: We reviewed post op incision instructions including: Begin scar massage in four to six weeks, instructions provided in avs. We reviewed signs and symptoms of infection, spitting sutures, parameters for normal post op swelling and bruising. We reviewed correct phone numbers to call us for concerns. We reviewed activity restrictions - no heavy, lifting, pushing, pulling, anything over 5 pounds for6 weeks after your surgery. Wear compression bra for 6 weeks after surgery, no underwire for 6 months Radha expressed understanding of instructions,and agrees with the plan of care. Follow up in 6 months or sooner with Dr. Shaikh for wound / incision check. documented in this encounter Plan of Treatment Not on file documented as of this encounter Visit Diagnoses Diagnosis Follow-up examination, following other surgery documented in this encounter Care Teams Space Sciences Director Relationship Specialty Start Date End Date Chelsey Preciado PA [address] [place] [address] PCP - General Family Medicine 02/08/21 documented as of this encounter
--- OUTSIDE RECORDS SUMMARY | 2024-06-25 13:29 | XMS_ITS | Encounter Summary ---
Author Organization [facility] [place] [address] Care Team Providers Care College Archivist Name Role Phone Chelsey Preciado Primary Care Provider +1- [phone] Encounter Details Date Type Department Care Team (Latest Contact Info) Description 06/10/2021 10:00 AM EST Clinical [place] [address] Surgery follow-up Social History Tobacco Use Types Packs/Day Years [...] this encounter Patient Instructions * Patient Instructions* Amberly Daley RN - 06/10/2021 10:00 AM EST .Signs of Infection : A temperature over 100.4 [...] such as extra strength tylenol, or NSAIDS For any of these symptoms please call our nurse's line at [phone] M - F 8 - 5 For after hours, and on weekends; Call [phone] and ask for our plastic surgeon electronic warfare specialist Your drains have removed your drain(s) have a compression dressing. You may remove the dressing in 24 hours and shower. After showering, you may cover the drain site(s) with a band aid,or guaze if still draining a largeamount of fluid. The drain site is typically closed in approximately three days. Please call the clinic with any questions or concerns @ [phone] Tuesday through Tuesday from 8-5. On weekends, nights, or holidays, call the Main Hospital number @ [phone] and ask for the Plastic Surgeon electronic warfare specialist. documented in this encounter Progress Notes * Amberly Daley RN - 06/10/2021 10:00 AM EST Plastic Surgery Breast Reduction Drain Removal Note Date of surgery:06/09/20 Procedure(s): Bilateral breast reduction DO[place] with Dr. Shaikh Subjective : Radha reports no discomfort she has not needed anything for pain.She has severe nausea, and has been vomiting.She has not been able to hold down food of liquids. She is afraid of getting dehydrated. She is here with her Objective : Bilateral drains are about 20 mLs in a 24 hr period, does meet criteria for removal today. Drain sites cleansed with a wound cleanser and dry dressings re applied with instructions to leave this dressing in place for 24 hours. Both breasts are soft and equal in size. Swelling: mild bilaterally Bruising: mild bilaterally The incision lines are well approximated with Skin glue intact.. The NACs have good perfusion. Nipples have normal projection. Surgical bra fitted and in use. Dr. Shaikh into examine secondary to nausea HR 70, she is voiding Assessment : There no signs of delayed healing, erythema, or fluid collection. Incisions CDI Plan : We reviewed instructions on drain site and incisional care, showering, pain control, and activity restrictions as outlined in our post op brochure. We reviewed parameters for normal post operative swelling and bruising as stated in our post op brochures.Radha agrees with plan of care,and was instructed to call with any concerns. Hospital check appointment next week with nurses for bra fitting , pathology report , incision check. Script for zofran sent to [facility]. She was instructed to increase her fluid intake to avoid dehydration.If she continues with vomiting and zofran does not help with symptoms, she was instructed to go to her local ED. Radha agrees with the plan of care. . documented in this encounter Plan of Treatment Not on file documented as of this encounter Visit Diagnoses Diagnosis Surgery follow-up Follow-up examination, following unspecified surgery documented in this encounter Care Teams College Archivist Relationship Specialty Start Date End Date Chelsey Preciado PA [address] [place] [address] PCP - General Family Medicine 02/08/21 documented as of this encounter
--- OUTSIDE RECORDS SUMMARY | 2024-06-25 13:29 | XMS_ITS | Encounter Summary ---
Author Organization [facility] Address [facility] [place] [address] Care Team Providers Care Ordnance Artificer Helper Name Role Phone Chelsey Preciado Primary Care Provider [phone]- [phone] Reason for Visit * Reason Comments Follow Up Surgery BBR 06/09/21 Encounter Details Date Type Department Care Team (Late st Contact Info) Description 01/04/2022 11:45 AM EDT Office [place] [address] Isaac Crane MD [facility] [place] [address] Surgery follow-up Social History Tobacco Use Types [...] PM EDT documented as of this encounter Progress Notes * Isaac Crane MD - 01/04/2022 11:45 AM EDT Plastic Surgery Post Op Note Isaac Crane MD. Reason for visit: F/U status post procedure Date of surgery: 06/09/21 Procedure(s): BBR Complications: None reported HPI: Patient is unaccompanied for today's visit. She reports that she is doing well and is very happy with the results of her surgery and only wishes she had had the procedure sooner. She reports that she no longer has any neck and shoulder pain. She is lifting weights again and has returned to allof her regular activities. She has a small white area in her left breasts and asks if this is a spitting suture. Examination: Patient is alert, conversant, comfortable, ambulating Incision: CDI, healing well. No collection, no erythema, no evidence of cellulitis. Slight volume discrepancy with left breast > right. Nipple position symmetric. Small skin tag or skin cyst on left breast remote from incison-flesh toned, no pigment, no [id number]. Impression: Radha Veras is a 36 y.o. female who was seen today for follow-up after the above procedure. Please see the operative note for details. She is healing well. The area she asks about is not a spitting suture, as it is not in the area of her incision and her operation was several monthsago. It is likely a skin tag or skin cyst. If this changes she should see her manager strategic alliances or we di scussed that she may follow up further with her manager strategic alliances if she is concerned about this. She was instructed to tell her radiologist that she had a breast reduction at her first mammogram. She was instructed to call with any questions or concerns that arise. Photos were obtained at today's visit with informed, signed consent. Plan: 1.Follow up: DESTINY Perry, Maryann Xiao, have performed the documentation for this encounter in the presence of and acting as a scribe for ISAAC CRANE MD. I performed the services which were documented by the scribe, and I agree with the accuracy of the documentation in this encounter. ISAAC CRANE MD documented in this encounter Plan of Treatment Not on file documented as of this encounter Visit Diagnoses Diagnosis Surgery follow-up Follow-up examination, following unspecified surgery documented in this encounter Care Teams Ordnance Artificer Helper Relationship Specialty Start Date End Date Chelsey Preciado PA [address] [place] [address] PCP - General Family Medicine 02/08/21 documented as of this encounter
--- OUTSIDE RECORDS SUMMARY | 2024-06-25 13:30 | XMS_ITS | Encounter Summary ---
[facility] [place] [address] Care Team Providers Care Washer Engineer Name Role Phone None Primary Care Provider Unavailabl e Encounter Details Date Type Department Care Team (Late st Contact Info) Description 01/14/2017 External [place] [id number] Trinh Christianson RN Social History Tobacco Use Types Packs/Day Years Used Date Smoking Tobacco: Never Smokeless Tobacco: Never Comments:n/a Alcohol Use Standard Drinks/Week Comments No 0 (1 standard drink = 0.6 oz pur e alcohol) n/a Sex and Gender Information Value Date Recorded Sex Assigned at Female 04/08/2021 1:54 PM EDT Gender Identity Female 04/08/2021 1:54 PM EDT Sexual Orientation Straight 04/08/2021 1: 54 PM EDT documented as of this encounter Plan of Treatment Not on file documented as of this encounter Procedures Procedure Name Priority Date/Time Associated Diagnosis Comments EXTERNAL LAB CBC CMP THYROID RESULTS PANEL Routine 01/12/2017 documented in this encounter Results * CBC / CMP / Thyroid External Results (01/12/2017) Sodium 138 Potassium 4.3 Chloride 101 Carbon Dioxide 26 Blood Urea Nitrogen 14 Creatinine 0.86 Est Glomerular Filtration Rate >60 Glucose 269 Calcium 9.5 Protein, Total 7.5 Albumin 3.9 Bilirubin, Total 3.07 Alkaline Phosphatase 105 Aspartate Aminotransferase 413 Alanine Aminotransferase 1,041 01/12/2017 Historical Provider MD EXTERNAL LAB EM PINEDA documented in this encounter Visit Diagnoses Not on filedocumented in this encounter Care Teams Washer Engineer Relationship Specialty Start Date End Date None None PCP - General 12/21/16 02/07/21 documented as of this encounter
--- OUTSIDE RECORDS SUMMARY | 2024-06-25 13:30 | XMS_ITS | Encounter Summary ---
Author Organization [facility] Address [facility] [place] [address] Care Team Providers Care Tumble Tailstock Turret Lathe Operator Name Role Phone Chelsey Preciado Primary Care Provider [phone]- [phone] Reason for Visit * Reason Comments Advice Only BBR - watched CARLOS ENRIQUE * Consultation (Routine) - Duplicate Referral Specialty Diagnoses / Procedures Referred By Dayna mendoza Referred To Contact Plastic Surgery Diagnoses Hypertrophy of breast Danii Mo APRN [address] [place] [address] [facility] [place] [address] [place] [address] Referral ID Status Reason Start Date Expiration Date Visits Requested Visits Authorized [id number] Duplicate Referral Consult, [facility] PCP Updated and/or Approved 01/30/2021 01/30/2022 6 6 Encounter Details Date Type Department Care Team (Late st Contact Info) Description 04/09/2021 11:00 AM EDT Office [place] [address] Isaac Crane MD [facility] [place] [address] Macromastia Social History Tobacco Use Types Packs/Day Years [...] PM EDT documented as of this encounter Last Filed Vital Signs Vital Sign Reading Time Taken Comments Blood Pressure - - Pulse - - Temperature - - Respiratory Rate - - Oxygen Saturation - - Inhaled Oxygen Concentration - - Weight 97.1 kg (214 lb) 04/09/2021 10:57 AM EDT Height 170.2 cm (5' 7) 04/09/2021 10:57 AM EDT Body Mass Index 33.52 04/09/2021 10:57 AM EDT documented in this encounter Patient Instructions * Patient Instructions* Lori Ramirez RN - 04/09/2021 11:00 AM EDT Preoperative Instructions You have been scheduled to have plastic surgery. The instructions below are specific to your procedure. If you are a smoker, we ask that you stop at least 2 months prior to your surgical date and remain nicotine free for at least a month after surgery. Smoking can impair healing and increase your chance of infection. Two Weeks prior to Surgery Do not take any Aspirin or aspirin containing products for the 2 weeks leading up to surgery. You may resume taking 48 hours after surgery. Do not take medications containing Ibuprofen. Do not take any anti-steroidal's such as Advil, Aleve, Celebrex, Daypro, Indocin, Midol, Motrin, Naproxen, Nuprinand Toradol. These medications increase your risk of bleeding. You may resume taking any of these medications 48 hours after surgery. Stop Vitamin E, Garlic supplements, Ginseng, Fish Oil tablets, Ginkgo and Franco's Wort and any other herbals. You may resume taking 48 hours after surgery. If you need medication for pain, you may take Tylenol or extra strength Tylenol during this two week period. One Week prior to Surgery Please call if you feel ill, have cold or fever, have a rash or breaks in the skin near your surgical site. Stay hydrated. Avoid alcohol and recreational drugs Three Days before Surgery Do not shave near your surgical site One Day before Surgery Breast Surgery - Wash your chest and underarms for several minutes the night before and the morningof surgery using an antibacterial soap (Dial or Lever 2000) or Hibiclens wash. The Same Day Surgery Team will call you the business day before your surgery to give you instructions specific to your procedure and your surgical time. Generally, you will be asked not to eat any solids after midnight. You are allowed clear liquids (water, rashid chuckie, apple juice, black coffee andplain tea) until 2 hours prior to your surgery. Day of Surgery You will need a commercial trailer truck driver. If you do not have a commercial trailer truck driver, your surgery will be canceled. DO NOT wear any jewelry, makeup or artificial nails the day of surgery. DO NOT use any lotions, powders or deodorants near or on the surgical site the day of surgery. Do wear comfortable, loose fitting clothes. Anesthesia will meet with you the morning of surgery. They will perform an assessment and review your history with you. If you are 40 years old or older, please remember to have a mammogram with in one year prior to your upcoming breast reduction surgery as we advise not having a mammogram for at least six months after surgery. Contact Information: During regular office hours (Tuesday- Tuesday, non-holiday 8:00 am- 5:00 pm) For an appointment or insurance questions For questions pertaining to your surgical date [phone] For nursing related questions [phone] On weekends, holidays or after office hours: Call and ask the chopping machine operator to page the Plastic Surgery Resident community health consultant. documented in this encounter Progress Notes * Isaac Crane MD - 04/09/2021 11:00 AM EDT Plastic Surgery Consultation Note Isaac Craen MD. PCP: ORIN Ash CC: Symptomatic macromastia HPI: Radha Veras is a 35 y.o. female who presents today for evaluation of symptomatic macromastia. Danii Mo APRN has requested the consultation. She is unaccompanied for today???s visit. She admits to having back, shoulder, and neck pain. She admits to having headaches. She admits to painful grooves in her shoulders from the weight of her breasts. She admits to getting rashes beneath her breasts in the warm months. She admits to having trouble sleeping due to the pain from her breasts. She has seen a chiropractor with some relief. The patient is otherwise healthy. No heart, lung, breathing, liver, kidney, hepatitis, diabetes, seizure issues. She denies any knowledge of a family history of breast cancer. She denies smoking, and use of drugs. She admits to occasional alcohol. She works on a [place] in [place], [place]. She reports that she has spent a large amount of money from different bras that she has bought over time. She admits to having 4 children, which 3 of them she was able to breast feed. She had not had a mammogram due to her young age. She has completed a breast specific questionnaire: Pertinent findings to emphasize are: No flowsheet data found. Breast Q Reduction PreOp 04/08/2021 Satisfaction with Breast 17 Psychosocial Wellbeing 32 Sexual well-being 34 Physical Well-being 59 How your breasts look in clothes? Very dissatisfied How your breast size matches the rest of your body? Somewhat dissatisfied The size of your breasts? Very dissatisfied The shape of your breasts when you are wearing a bra? Very dissatisfied How equal in size your breasts are to each other? Very dissatisfied How comfortably your bras fit? Very dissatisfied The shape of your breasts when you are not wearing a bra? Very dissatisfied How you look in the mirror clothed? Somewhat dissatisfied How your breasts sit/hang on your chest? Very dissatisfied How normal your breasts look? Very dissatisfied How you look in the mirror unclothed? Very dissatisfied Confident in a social setting? Some of the time Of equal worth to other women? A little of the time Good about yourself? A little of the time Self-assured? None of the time Confident in your clothes? A little of the time Accepting of your body? None of the time That your appearance matches who you are inside? A little of the time Confident about your body? A little of the time Attractive? A little of the time Comfortable/at ease during sexual activities? A little of the time Confident sexually? A little of the time Satisfied with your sex-life? Some of the time Sexually attractive in your clothes? A little of the time Sexy when unclothed? None of the time Headaches? All of the time Pain in your breast area? All of the time Lack of energy? All of the time Difficulty doing vigorous physical activities (e.g. running or exercising)? Some of the time Feeling physically unbalanced? Some of the time Shoulder pain? Some of the time Difficulty sleeping because of discomfort in your breast area? All of the time Neck pain? Some of the time Painful gouges or grooves in your shoulders from your bra straps? All of the time Feeling physically uncomfortable? Some of the time Rashes under your breasts? Some of the time Back pain? Some of the time Arm pain? None of the time Pain, numbness or tingling in your hands because of your breast size? Some of the time Conservative Therapy Treatments: [facility] CONSERVATIVE THERAPY TREATMENTS 04/08/2021 Physical therapy was effective at relieving my symptoms. Never Tried Use of custom support bras relieved my symptoms. Never Tired Treatment by a chiropractor relieved my symptoms. Some Relief How many months did you try this treatment? Less than 3 months Weight loss relieved my symptoms. No Relief How many months did you try this treatment? More than 6 months Non-narcotic medications (such as Tylenol, Aspirin, Ibuprofen, Aleve, etc) have relieved my symptoms. Never Tried Narcotic pain relievers (such as Tylenol #3, Percocet, etc) have relieved my symptoms. Never Tried Other Treatments have relieved my symptoms. Never Tried Over the counter or prescription medication has relieved the rashes under my breasts. Never Tried Past Medical History: Diagnosis Date ??? Hypothyroidism No past surgical history on file. ROS: HEENT, GI, /Renal, Psych, Card, Pulm, Endo, Heme, Immun, Neuro: negative Examination: BMI: Ht 170.2 cm (5' 7) Wt 97.1 kg (214 lb) BMI 33.52 kg/m?? BSA: Body surface area is 2.14 meters squared. General: On my examination today, the patient appears to be in good health. Her emotional outlook is positive and she asked appropriate questions throughout the visit. Breasts: Breast Measurements Right Left Ptosis Grade III Grade III SN-N (cm) 31.5cm 33.5cm IMF-N (cm) 13.5cm 14cm Base diameter 15 16 Breast Vol (estimate in cc) 900cc 1100cc Resection (estimate in gms) 450gms 550gms Impression: Symptomatic bilateral breast hypertrophy. Bilateral breast reduction is medically indicated for relief of her breast-related symptoms. She watched the CARLOS ENRIQUE video on breast reduction, and was provided with an [facility] brochure and informed consent on breast reduction. It reviews the surgicalrisks, alternate skin incisions and pedicle versus free nipple graft techniques. It also discusses the option of volume reduction by liposuction alone, which does not alter the nipple-areolar complexposition. It talks about the impact of this surgery on decreasing breast cancer risk. We reviewed the timing of surgery relative to weight fluctuations and I've advised that surgery is best done at a realistic prison stable weight. We talked about the outpatient nature of the surgery, drains, postoperative recovery, and time required off work. Post- operative restrictions include no vigorous/strenuous activity and no heavy lifting more than 5lbs for 4-6 weeks. She should anticipate 3 full weeks off from work. We discussed potential risks and complications which include but are not limited topain, bleeding, infection, scarring, asymmetry, hematoma, seroma, poor cosmetic outcome, failure ofprocedure, possible need for revision, recurrence damage to adjacent structures. The patient wishesto proceed with surgery and surgical consent was signed. Photos were obtained today with informed signed consent. The following risks were reviewed in the video or in our discussion: Breast Feeding Discussion: Although, not all women experience difficulty with breast feeding after breast reduction, we discussed the potential risk. We also discussed the potential risk in breast enlargement, should she decide to have children in the future. Surgical Risks which are greater with open reduction: bleeding with risk of hematoma (<5%); numbness, which may be temporary or permanent; scarring, including abnormal scarring; infection (5-10%);fat necrosis resulting in a breast mass and possible need for revision. I stressed the likelihood of minor problems with delayed wound healing (~30%) and the rare complication of nippleareolar necrosis. She is also aware that there may be some residual pain after the surgery and that there may possibly be some asymmetry. Serrano or Breda Pattern Incision: More scarring on breast, but lower risk for scar revision. (She was informed that her insurer might not cover secondary revisions for scarring or asymmetry.) Pedicle Technique: volume of reduction may be limited by need to provide an adequate blood supply to the nipple. There is a very small risk of nipple loss. Most women (~60%) will be able to breast-feed. Free Nipple Graft: The grafts will initially have no sensation and once fully healed may not respond to temperature and touch as they do now. She has also been informed that they may not look entirely normal and may have patchy hypopigmentation. She will not be able to breast feed with this technique. After fully discussing the options, she has opted to pursue a: Bilateral Breast Reduction Vertical, Pedicle X Bilateral Breast Reduction Serrano, Pedicle Bilateral Breast Reduction Serrano, FNG Anticipated resection: 450 grams right breast 550 grams left breast BSA [employer]/[place] Medicaid All other / Schnur 2.14 2.15 1000 819 She would like to proceed with surgery and I will inform her PCP of this plan. Photos taken today with informed signed consent. Plan: Schedule surgery Surgery Booking Information: Surgeon: Neel Duration: 2.5 hours Timeframe: Elective Procedure: Bilateral breast reduction CPT: 40879 Surgical Technique: Serrano, Pedicle Surgical site: Breasts Side: Bilateral Anesthesia: General Follow up: 7-10 days for HCK EWELINA PAT: H&P B[facility] acting as scribe for Dr. Crane. All work documented was performed by Dr. Crane. I performed the services which were documented by the scribe, and I agree with the accuracy of the documentation in this encounter. ISAAC CRANE MD documented in this encounter Plan of Treatment Not on file documented as of this encounter Visit Diagnoses Diagnosis Macromastia Hypertrophy of breast documented in this encounter Care Teams Tumble Tailstock Turret Lathe Operator Relationship Specialty Start Date End Date Chelsey Preciado PA [address] [place] [address] PCP - General Family Medicine 02/08/21 documented as of this encounter
--- OUTSIDE RECORDS SUMMARY | 2024-06-25 13:30 | XMS_ITS | Encounter Summary ---
Author Organization [facility] Address [address] [place] [address] Care Team Providers Care Time Motion Analyst Name Role Phone Yumiko, Yan LACKEY Unavailable Unavailable Unknown, Provider Primary Care Provider Unava ilable Reason for Visit * Reason Comments Laser Consultation Telangiectasias - B/ L cheeks Encounter Details Date Type Department Care Team (Late st Contact Info) Description 10/04/2017 11:15 EDT Office Visit [facility] Dermatology 3rd Floor [address] [id number] Igor Syed MD [address] [facility], [address] [place] [address] Telangiectasia (Primary Dx) Social History Tobacco Use Types Packs/Day Years Used Date Smoking Tobacco: Never Smokeless Tobacco: Never Comments Unknown Sex and Gender Information Value Date Recorded Sex Assigned at Not on file Legal Sex Female 18:38 EST Gender Identity Not on file Sexual Orientation Not on file documented as of this encounter Progress Notes * Sabrina Buckner MD - 10/04/2017 1119 EDT V-BEAM PULSED DYE LASER OPERATIVE REPORT PATIENT INFORMATION: Radha Veras : MRN: [id number] SURGEON: Igor Syed MD DIRECTIONAL DRILLER: Sabrina Buckner MD The risks and benefits of treatment with the pulsed dye laser were discussed carefully with the patient or patient???s guardian. Risks of pulsed dye laser treatment including but not limited to pain,immediate purpura, transient and prolonged hyperpigmentation, hypopigmentation, the need for multiple treatments, a slight risk of scarring, and inadequate cosmetic result were discussed prior to proceeding with treatment. The patient or guardian voiced an understanding of these risks and, following formal written consent, underwent the procedure as described below: DETAILS: LASER SITE A DIAGNOSIS: Telangectasia PROCEDURE: V-beam Pulse Dye Laser 595 nm LOCATION: right and left cheeks ANESTHESIA: None Treatment Number: 1 Procedure: The patient was brought to the laser suite. Protective eyewear was utilized at all times. Followingappropriate anesthesia, as indicated, the lesion was treated with the Lizz V-beam pulsed dye laser 595 with the following settings, using dynamic cooling: Spot Size: 3x10 mm Fluence: 11 . 5 Joules / cm2 Pulse Duration: 10 miliseconds Pulse Stacking: No Surface area treated: 25.0 cm2 Following the procedure, the treated area was lightly covered with petrolatum. Diligent sun protection encouraged. Charged $150 today (allowed resident to perform entire procedure). Sabrina Buckner MD 10/04/2017 11:23 Attestation Statement: I saw and examined the patient with the resident/fellow. I agree with the findings and plan of care documented in the resident's/fellow's note. I was present for the entire procedure. Igor Syed MD Dermatology [facility] documented in this encounter Plan of Treatment Not on file documented as of this encounter Visit Diagnoses Diagnosis Telangiectasia- Primary Other and unspecified capillary diseases documented in this encounter Historical Medications * This list may reflect changes made after this encounter. levothyroxine (SYNTHROID) 137 mcg tablet Take 137 mcg by mouth daily. added in this encounter Care Teams Time Motion Analyst Relationship Specialty Start Date End Date Unknown, Mikaela, PCP - General 08/24/17 09/09/21 Yan Calderon MD 05/03/16 documented as of this encounter
--- OUTSIDE RECORDS SUMMARY | 2024-06-25 13:30 | XMS_ITS | Encounter Summary ---
Author Organization Formerly [facility] [place] [address] Care Team Providers Care Securities And Real Estate Director Name Role Phone None Primary Care Provider Unavailabl e Encounter Details Date Type Department Care Team (Late st Contact Info) Description 01/03/2017 Orders [place] [address] Camille Ventura [facility] [place] [address] Elevated liver enzymes Social History Tobacco Use Types Packs/Day Years Used Date Smoking Tobacco: Never Comments:n/a Alcohol Use Standard Drinks/Week [...] on file documented as of this encounter Results * (ABNORMAL) Comprehensive metabolic panel (non-fasting) (01/04/2017 10:39 AM EDT) Glucose 114 65 - 199 mg/dL [facility] Comment:Diabetes: >=200 mg/d L plus symptoms Blood Urea Nitrogen 7(L) 8 - 18 mg/dL [facility] Creatinine 0.77 0.70 - 1.20 mg/dL [facility] Comment: Please note that the pediatric reference intervals supplied above were not validated at [facility]. Results from pediatric patients should be interpreted in conjunction to the patient's age, height and muscle mass. Sodium 140 135 - 145 mmol/L [facility] Potassium 4.2 3.5 - 5.0 mmol/L [facility] Comment: Please note: ??Patients with WBC >100,000 may have falsely elevated Potassium levels. ??For accurate Potassium quantification in these patients send serum separator tube (gold top) for subsequent determinations. ??Contact the Clinical Chemistry Laboratory if there are any questions. Chloride 101 98 - 107 mmol/L [facility] Carbon Dioxide 25 22 - 31 mmol/L [facility] Anion Gap 14 5 - 15 mmol/L [facility] Calcium 9.9 8.5 - 10.5 mg/dL [facility] Protein, Total 7.9 6.1 - 8.0 gm/dL [facility] Albumin 4.6 3.2 - 5.2 gm/dL [facility] Aspartate Aminotransferase 597(H) 0 - 30 unit/L [facility] Alanine Aminotransferase 1,070(H) 0 - 30 unit/L [facility] Alkaline Phosphatase 103 40 - 104 unit/L [facility] Bilirubin, Total 5.3(H) 0.2 - 1.3 mg/dL [facility] Est Glomerular Filtration Rate >60 >=60 [facility] Comment: This estimated GFR (eGFR) value was calculated using the MDRD equation which has been validated on patients between the ages of 18 and 70. The MDRD should not be used to assess kidney function in patients < 18 years of age or in patients with extremes of body mass, or in patients with acute kidney failure. This value should be multiplied by 1.2 for patients. For further information please copy and paste the following links into your internet browser. [email or web address] [email or web address] Blood specimen (specimen) 01/04/2017 10:39 AM EDT 01/04/2017 10:42 AM EDT Narrative Resulting Agency Comment Spec In Lab Camille Ventura APRN CHEMISTRY ORDERABL ES Performing Organization Address City/State/[facility] Co de Phone Number [facility] [place] [address] documented in this encounter Visit Diagnoses Diagnosis Elevated liver enzymes Nonspecific elevation of levels of transaminase or lactic acid dehydrogenase (LDH) documented in this encounter Care Teams Securities And Real Estate Director Relationship Specialty Start Date End Date None None PCP - General 12/21/16 02/07/21 documented as of this encounter
--- OUTSIDE RECORDS SUMMARY | 2024-06-25 13:30 | XMS_ITS | Encounter Summary ---
Author Organization Formerly [facility] [place] [address] Care Team Providers Care Soft Boarder Name Role Phone Chelsey Preciado Primary Care Provider +1- [phone] Encounter Details Date Type Department Care Team (Late st Contact Info) Description 05/28/2021 Telephone [place] [id number] Nohemy Quan Social History Tobacco Use Types Packs/Day Years [...] encounter Miscellaneous Notes * Telephone Encounter - Nohemy Quan - 05/28/2021 4:26 PM EST Patient called this afternoon inquiring about if her payment has gone through. I informed her that it has not. Chelsea was unable to get a hold of Isela in patient access regarding the payment. The patient is going to call us Tuesday morning once she has talked to her bank, so we will be able to run the payment then. documented in this encounter Plan of Treatment Not on file documented as of this encounter Visit Diagnoses Not on filedocumented in this encounter Care Teams Soft Boarder Relationship Specialty Start Date End Date Chelsey Preciado PA [address] [place] [address] PCP - General Family Medicine 02/08/21 documented as of this encounter
--- OUTSIDE RECORDS SUMMARY | 2024-06-25 13:30 | XMS_ITS | Encounter Summary ---
Author Organization [facility] [place] [address] Care Team Providers Care Stonework Tracer Name Role Phone None Primary Care Provider Unavailabl e Encounter Details Date Type Department Care Team (Late st Contact Info) Description 05/12/2017 Orders [place] [address] Camille Ventura BRIDGE MAINTENANCE WORKER [facility] [place] [place] [address] Elevated liver function tests Social History Tobacco Use Types Packs/Day Years [...] as of this encounter Visit Diagnoses Diagnosis Elevated liver function tests Other abnormal blood chemistry documented in this encounter Care Teams Stonework Tracer Relationship Specialty Start Date End Date None None PCP - General 12/21/16 02/07/21 documented as of this encounter
--- OUTSIDE RECORDS SUMMARY | 2024-06-25 13:30 | XMS_ITS | Encounter Summary ---
Author Organization [facility] [place] [address] Care Team Providers Care Sanitary Aide Name Role Phone None Primary Care Provider Unavailabl e Reason for Visit * Reason Comments GI Problem Encounter Details Date Type Department Care Team (Late st Contact Info) Description 01/04/2017 9:00 AM EDT Office [place] [address] Camille Lara APRN [facility] [place] [address] Transaminitis; Elevated liver enzymes Social History Tobacco Use [...] Sign Reading Time Taken Comments Blood Pressure 115/77 01/04/2017 9:14 AM EDT Pulse 75 01/04/2017 9:14 AM EDT Temperature - - Respiratory Rate - - Oxygen Saturation - - Inhaled Oxygen Concentration - - Weight 102.1 kg (225 lb) 01/04/2017 9:14 AM EDT Height 167.6 cm (5' 6) 01/04/2017 9:14 AM EDT Body Mass Index 36.32 01/04/2017 9:14 AM EDT documented in this encounter Progress Notes * Camille Lara APRN - 01/04/2017 9:00 AM EDT HEPATOLOGY NEW PATIENT CONSULTATION Radha Veras 1985 [employer]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 year old female with a history of hypothyroidism, 7mo post- who presented at the hospital 3 weeks ago with markedly elevated liver enzymes (AST 700s, ALT 1700s) which was suspected to be due to a viral illness. Her workup was negative for viral hepatitis (hcv neg;hbSab neg / hbSag neg, hep a ab neg, hep e IgM ab neg), cmv negative, ebv IgG positive/ IgM negative. Her ultrasound did not indicate an obstructive process, CBD at 3mm, and suspicion for stone or biliary etiology was low. She returns today for follow up. She did blood work 1 week ago and her liver enzymes are trending down. Her appetite has come back somewhat although she still doesn't feel like eating as much. She will get dizzy occasionally. 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 When she has a very long day she feels very fatigued and like she needs to go to bed at 630pm. She is still her daughter, as she has been. Her milk supply has gone down, which she is not surprised at given her lack of appetite. ROS: Constitutional: some fatigue, no f/c Eye: no visual changes ENT: no URI symptoms Cardio: no chest pain Resp: no cough, no SOB GI: No blood in stools, no nausea/vomitting. Knot in stomach : no dysuria Integumentary: no new rashes, no easy bruising Musculoskeletal: no new joint pains, swelling of ankles or legs Neuro: no new numbness, weakness in extremities PAST MEDICAL/SURGICAL HISTORY 1. Hypothyroidism MEDICATIONS Outpatient Prescriptions Marked as Taking for the 01/04/17 encounter (Office Visit) with Camille Lara APRN Medication Sig Dispense Refill ??? levothyroxine (SYNTHROID) 137 mcg Tablet Take 137 mcg by mouth daily. ??? 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 FAMILY HISTORY Aunt with brain cancer PHYSICAL EXAM Vitals: 01/04/17 0914 BP: 115/77 Pulse: 75 Weight: (!) 102.1 kg (225 lb) Height: 167.6 cm (5' 6) Body mass index is 36.32 kg/(m^2). Gen: Well appearing, no apparent distress. Skin: no spider angiomata, no palmar erythema. Slight jaundice evident in pale areas of skin. HEENT: Sclerae slightly icteric. pupils equal, round, Pharynx unremarkable. Neck is supple, no adenopathy, no thyromegaly. Abdomen: Normal bowel sounds; soft, non distended. No obvious hepatosplenomegaly. No evidence of ascites Extremities: No edema. Neuro: alert and oriented x3 Lab Results Component Value Date WBC 4.6 12/22/2016 HGB 14.3 12/22/2016 HCT 41.8 12/22/2016 MCV 89.5 12/22/2016 PLATELET 145 12/22/2016 No results for input(s): INR in the last 168 hours. Chemistry Component Value Date/Time NA 138 12/22/2016 031 K 3.4 (L) 12/22/2016 031 CL 99 12/22/2016314 CO2 24 12/22/2016314 BUN 8 12/22/2016 031 CREATININE 0.69 (L) 12/22/2016 031 Component Value Date/Time CALCIUM 9.2 12/22/2016 031 CALCIUM 9.2 12/22/2016 031 ALKPHOS 97 12/22/2016 031 AST 778 (H) 12/22/2016314 ALT 1714 (H) 12/22/2016 031 BILITOT 6.4 (H) 12/22/2016 0315 12/22/16: Ferritin: 5630 12/29/16: AST: 652 ALT: 1522 Tbili: 8.76 Dbili: 6.46 Ferritin: >2000 ASSESSMENT/PLAN Radha Veras is a 31 y.o. female with elevated liver enzymes, likely due to a viral illness. Herpresentation of malaise a few days before presented with jaundice and elevated liver enzymes is consistent with a viral enzymes and her workup has been negative for other causes of transaminitis. HerANA is positive at 1:320, which is a non-specific marker, however if her liver enzymes do not resolve may consider liver biopsy for evaluation for autoimmune hepatitis. Suspicion for obstructive etiology is low given ultrasound that does not show any obstruction and normal alkaline phosphate. Her liver enzymes have gone down since her discharge, although her bilirubin is up slightly, which can happen as she resolves from a viral hepatitis. Her ferritin is likely elevated as an acute phase reactant secondary to a viral process. Plan: - Check liver enzymes once a weeks to check trending of enzymes and bilirubin. Gave patient standing order to do at OSH - If enzymes remain persistently elevated or are not trending down, plan to do liver biopsy and evaluate for other etiologies (possible autoimmune hepatitis) Camille Lara APRN Section of Gastroenterology and [place] [address] Copy: None None documented in this encounter Plan of Treatment Scheduled Orders Name Type Priority Associated Diagnoses Orde r Schedule Comprehensive metabolic panel (non-fasting) Lab Routine Transaminitis Expected: 01/04/2017 (Approximate), Expires: 07/06/2017 documented as of this encounter Procedures Procedure Name Priority Date/Time Associated Diagnosis Comments BLUE TUBE HOLD Routine 01/04/2017 10:39 AM EDT PROTHROMBIN TIME Routine 01/04/2017 10:3 9 AM EDT COMPREHENSIVE METABOLIC PANEL Routine 01/04/2017 10:39 AM EDT Elevated liver enzymes documented in this encounter Results * Prothrombin Time (01/04/2017 10:39 AM EDT) Prothrombin Time 12.7 12.0 - 15.0 sec [facility] Comment: An INR <2.0 indicates adequate procoagulant activity for hemostasis in most patients without underlying bleeding disorders, though the INR may not adequately reflect hemostatic capacity in patients with liver disease and synthetic impairment. The recommended target INR range for therapeutic anticoagulation is 2.0 ? 3.0 for most applications, though lower and higher ranges may be appropriate depending on clinical circumstances. International Normalization Ratio 0.9 0.9 - 1.1 [facility] Blood specimen (specimen) No Charge / Unknown 01/04/2017 10:39 AM EDT 01/04/2017 11:06 AM EDT Narrative Resulting Agency Comment Spec In Lab aCmille Figueroa Lorenzo PERDOMO HEMATOLOGY ORDERAB LES Performing Organization Address [facility] Co de Phone Number [facility] [place] [address] * Blue Tube HOLD (01/04/2017 10:39 AM EDT) [facility] Blue Hold Sample in lab. [facility] Blood specimen (specimen) No Charge / Unknown 01/04/2017 10:39 AM EDT 01/04/2017 10:42 AM EDT Camille Goldnorberto PERDOMO HEMATOLOGY ORDERAB LES Performing Organization Address [facility] Co de Phone Number [facility] [place] [address] * (ABNORMAL) Comprehensive metabolic panel (non-fasting) (01/04/2017 10:39 AM EDT) Glucose 114 65 - 199 mg/dL [facility] Comment:Diabetes: >=200 mg/d L plus symptoms Blood Urea Nitrogen 7(L) 8 - 18 mg/dL [facility] Creatinine 0.77 0.70 - 1.20 mg/dL [facility] Comment: Please note that the pediatric reference intervals supplied above were not validated at [facility]. Results from pediatric patients should be interpreted in conjunction to the patient's age, height and muscle mass. Sodium 140 135 - 145 mmol/L [facility] Potassium 4.2 3.5 - 5.0 mmol/L [facility] Comment: Please note: ??Patients with WBC >100,000 may have falsely elevated Potassium levels. ??For accurate Potassium quantification in these patients send serum separator tube (gold top) for subsequent determinations. ??Contact the Clinical Chemistry Laboratory if there are any questions. Chloride 101 98 - 107 mmol/L [facility] Carbon Dioxide 25 22 - 31 mmol/L [facility] Anion Gap 14 5 - 15 mmol/L [facility] Calcium 9.9 8.5 - 10.5 mg/dL [facility] Protein, Total 7.9 6.1 - 8.0 gm/dL [facility] Albumin 4.6 3.2 - 5.2 gm/dL [facility] Aspartate Aminotransferase 597(H) 0 - 30 unit/L [facility] Alanine Aminotransferase 1,070(H) 0 - 30 unit/L [facility] Alkaline Phosphatase 103 40 - 104 unit/L [facility] Bilirubin, Total 5.3(H) 0.2 - 1.3 mg/dL [facility] Est Glomerular Filtration Rate >60 >=60 [facility] Comment: This estimated GFR [...] the following links into your internet browser. [email or web address] [email or web address] Blood specimen (specimen) 01/04/2017 10:39 AM EDT 01/04/2017 10:42 AM EDT Narrative Resulting Agency Comment Spec In Lab Camille Lara APRN CHEMISTRY ORDERABL ES [facility] [place] [address] documented in this encounter Visit Diagnoses Diagnosis Transaminitis Nonspecific elevation of levels of transaminase or lactic acid dehydrogenase (LDH) Elevated liver enzymes Nonspecific elevation of levels of transaminase or lactic acid dehydrogenase (LDH) documented in this encounter Care Teams Sanitary Aide Relationship Specialty Start Date End Date None None PCP - General 12/21/16 02/07/21 documented as of this encounter
--- OUTSIDE RECORDS SUMMARY | 2024-06-25 13:30 | XMS_ITS | Encounter Summary ---
Author Organization Formerly [facility] [place] [address] Care Team Providers Care Assistant Professor Of Anthropology Name Role Phone None Primary Care Provider Unavailabl e Encounter Details Date Type Department Care Team (Late st Contact Info) Description 01/06/2017 External Results [place] [address] Camille Ventura PRODUCER ARBORIST MANAGER [facility] [place] [address] Social History Tobacco Use Types Packs/Day Years [...] LAB CBC CMP THYROID RESULTS PANEL Routine 12/29/2016 documented in this encounter Results * CBC / CMP / Thyroid External Results (12/29/2016) Bilirubin, Total 8.76 Aspartate Aminotransferase 652 Alanine Aminotransferase 1,522 Ferritin >2,000 Prothrombin Time 10.9 International Normalization Ratio 1.1 Historical Provider EXTERNAL LAB EM PINEDA documented in this encounter Visit Diagnoses Not on filedocumented in this encounter Care Teams Assistant Professor Of Anthropology Relationship Specialty Start Date End Date None None PCP - General 12/21/16 02/07/21 documented as of this encounter
--- OUTSIDE RECORDS SUMMARY | 2024-06-25 13:30 | XMS_ITS | Encounter Summary ---
[place] [address] Care Team Providers Care Label Stitcher Name Role Phone Chelsey Preciado Primary Care Provider +1- [phone] Encounter Details Date Type Department Care Team (Late st Contact Info) Description 05/28/2021 Telephone [place] [phone] Mindi Wong Social History Tobacco Use Types [...] on filedocumented in this encounter Care Teams Label Stitcher Relationship Specialty Start Date End Date Chelsey Preciado PA [address] [place] [address] PCP - General Family Medicine 02/08/21 documented as of this encounter
--- OUTSIDE RECORDS SUMMARY | 2024-06-25 13:30 | XMS_ITS | Encounter Summary ---
Author Organization [facility] [place] [address] Care Team Providers Care Short Order Fry Cook Name Role Phone Chelsey Preciado Primary Care Provider +1- [phone] Reason for Visit * Auth/Cert Specialty Diagnoses / Procedures Referred By Dayna mendoza Referred To Contact Diagnoses macromastia Procedures PRO REDUCTION OF LARGE BREAST REDUCTION MAMMOPLASTY, MALENA (WRVU 16.03) MODIFIER DOYLE Referral ID Status Reason Start Date Expiration Date Visits Re quested Visits Authorized [id number] 1 1 Encounter Details Date Type Department Care Team (Late st Contact Info) Description 2021 3:19 PM EST Anesthesia [place] [phone] Mary Garrido MD [facility] [place] [address] Erika Santos [place] [address] Anesthesia Record Procedure Summary Procedure Name Responsible Anesthesiologist Anesthesia Start Time Anesthesia Stop Time REDUCTION MAMMOPLASTY, MALENA (WRVU 16.03) (Bilateral: Breast) Mary Garrido MD 06/09/21 1519 06/09/21 1722 Events Date Time Event Comment 2021 1519 AN Verify 1519 Start 1519 An Start Data 1522 1525 An Induction 1526 An Intubation 1528 Anesthesia Ready 1712 Extubation/LMA Out 1712 an stop data 1722 Recovery or ICU Handoff Odalys ent care was transferred to the destination unit staff after review of the patient's medical history, current anesthetic/surgical status and plan, according to the Provider Handoff Checklist. 1722 Stop Meds Name Total Midazolam 2 mg fentaNYL 250 mcg IV Lidocaine 100 mg Propofol 300 mg Ondansetron 4 mg Dexamethasone 8 mg ceFAZolin 2 g HYDROmorphone 2 mg/mL 1 mg Dexmedetomidine INF 26.9 mcg Propofol INF 292.64 mg Lactated Ringers 900 mL * Agents Name O2 Air N2O Sevoflurane (et) * Blood No blood administrations on file. Lines, Drains, and Airways Type Details Placement Removal Incision 06/09/21; 1540; Bilateral; breast 06/09/21 1540 by Rito Sullivan RN Drain/Device Site 06/09/21; 1656; Righ t; lower; breast; collapsible closed device (15 fr fannie drain) 06/09/21 1656 by Rito Sullivan RN Drain/Device Site 06/09/21; 1657; Left ; lower; breast; collapsible closed device (15 fr fannie drain) 06/09/21 1657 by Rito Sullivan RN (RETIRED) Peripheral IV Line - Single Lumen 06/09/21; 1358; cephalic vein (lateral side of arm), left; sdyt-cla-zhlcat catheter system; Anatomical Landmarks; 20 gauge; C CHARLEY Estes; distraction, tolerated well, appears comfortable; 06/09/21; 201206/09/21 1358 by Vera Estes RN 06/09/212012 by Shirley Treadwell RN Supraglottic LMA Type: iGel; LMA Size: 4; Inserted by: rabia; Removal Date: 06/09/21; Removal Time: 171106/09/21 1526 by Shira Hagan CRNA 06/09/21 171 by Shira Hagan CRNA documented in this encounter Social History Tobacco Use Types Packs/Day Years [...] PM EDT documented as of this encounter OR Notes * Anesthesia Postprocedure Evaluation - Mary Garrido MD - 2021 5:37 PM EST Department of Anesthesiology Post-procedure Note Patient: Radha Veras Procedure Summary Date: 06/09/21 Room / Location: [facility] OR [facility] MAIN OR Anesthesia Start: 1518 Anesthesia Stop: 1721 Procedures: REDUCTION MAMMOPLASTY, MALENA (WRVU 16.03) (Bilateral Breast) MODIFIER DOYLE (N/A ) Diagnosis: (macromastia) Surgeons: Isaac Shaikh MD Responsible Provider: Mary Garrido MD Anesthesia Type: general ASA Status: 2 All Anesthesia Providers: Anesthesiologist: Mary Garrido MD PICKLING MACHINE OPERATOR: Shira Hagan CRNA Vitals Value Taken Time BP 131/83 06/09/21 1730 Temp 36 ??C (96.8 ??F) 06/09/21 1719 Pulse 77 06/09/21 1719 Resp 16 06/09/21 1719 SpO2 99 % 06/09/21 1736 Pain Level Vitals shown include unvalidated device data. Patient Location: PACU/[facility] Level of Consciousness: Conscious but Sleepy Pain Management: Satisfactory Analgesia PONV: None Cardiovascular Status: At Baseline and Hemodynamically Stable Respiratory Status: Stable Respiratory Status and Supplemental O2 (NC or FM) Postoperative Fluid Status: Intravascular EUvolemia Possible Anesthetic Complications: NONE apparent at time of evaluation Final Primary Anesthesia Type: General (The anesthetic type performed was the same as planned.) Comments: Mary Garrido MD * Anesthesia Preprocedure Evaluation - Linda Mitchell MD - 05/19/2021 2:29 PM EST Pre-Anesthesia Evaluation for: Radha Veras a 35 y.o. female. Procedure(s): REDUCTION MAMMOPLASTY, MALENA (WRVU 16.03) MODIFIER DOYLE Patient Active Problem List Diagnosis ??? Transaminitis ??? care following vaginal delivery Past Medical History: Diagnosis Date ??? Hypothyroidism No past surgical history on file. Social History Tobacco Use ??? Smoking status: Never Smoker ??? Smokeless tobacco: Never Used ??? Tobacco comment: n/a Substance Use Topics ??? Alcohol use: Yes Comment: occasional Social History Substance and Sexual Activity Drug Use No Comment: n/a No Known Allergies Medications: MAR and/or home medications have been reviewed. Physical Exam: Preprocedure Vitals Current as of 05/19/21 1429 No BP, pulse, respiration, SpO2, or temperature recorded. Height: Weight: BMI: IBW: Airway Assessment: Mallampati: I TM distance: >3 FB Neck ROM: full Cardiovascular Assessment: system normal Pulmonary Assessment: pulmonary exam normal Dental Assessment: Misc Assessment: Last Filed Perioperative Cognitive Screening None Anesthesia Plan: ASA 2 general, with a(n) intravenous induction 36 y.o. female s/f bilateral breast reduction PMHx: Hypothyroidism (levothyroxine) Allergies: -- Acetaminophen -- Other (See Comments) -- Pt reports she had jaundice following tylenol, told her to avoid further acetaminophen. Vitals: Patient Vitals in the past 8 hrs: 06/09/21 1327, BP:(!) 166/107, Temp:36.7 ??C (98.1 ??F), Temp src:Temporal, Pulse:93, Resp:16, SpO2:100 %, Height:170.2 cm (5' 7), Weight:94.4 kg (208 lb 1.6 oz) Social Hx: no EtOH, no Tobacco, no Marijuana Physical activity: active mom to four sons and one daughter ROS negative for GERD, CP, SOB, dizziness. Notes and labs reviewed. Patient personally seen and examined. We discussed benefits, indications, and risks of anesthesia (including but not limited to sore throat, dental injury, nerve injury, prolonged intubation, cardiac, pulmonary, or neurologic event). Plan general anesthesia, standard ASA monitors, adequate PIV access. Linda Mitchell MD Region - Other Informed Consent: Anesthetic plan and risks discussed with patient. Plan discussed with PICKLING MACHINE OPERATOR and attending. Anesthesia Screening Note: Date and Time of Entry: 05/19/2021 2:29 PM Entered By: Tom, Erika, FUEL RETROFITTING TECHNICIAN Other Reason: Tested positive for COVID Screening Visit Type: Telephone Call Additional/Outside Records Requested? Did not request medical information from outside organization. Findings, Assessment and Plan: Notified by Dr. Shaikh's office that patient has an upcoming mammoplasty scheduled for 06/02 and recently tested positive for COVID. They would like to know how long anesthesia recommends waiting after a positive COVID test before proceeding with surgery. Called patient to discuss recent COVID diagnosis. She reports testing positive on 05/11/21. She was asymptomatic at the time of her test and has remained symptom free since then. Per the [facility] Guidelines for Surgery Wait Time after COVID-19 Infection, the recommended wait time for asymptomatic patients is 4 weeks from the time of diagnosis. Patient was agreeable to this and reports she was called this morning to reschedule her surgery to 06/09/21, which is over four weeks from her positive test. Call placed to Gillian at Dr. Shaikh's office to relay this recommendation. Erika Santos, LEANNE 05/19/21 documented in this encounter Plan of Treatment Not on file documented as of this encounter Visit Diagnoses Not on filedocumented in this encounter Administered Medications Inactive Administered Medications - up to 3 most recent administrations Medication Order MAR Action Action Date Dose Rate Site ceFAZolin (Ancef) 1 g in dextrose 5% 50 mL infusion Intravenous, PRN, Starting on Tue06/09/21 at 1529, Until Tue06/09/21 at 1722, Administer over 30 Minutes, Anesthesia Intra-op Given 2021 3:29 PM EST 2 g dexamethasone (Decadron) injection Intravenous, PRN, Starting on Tue06/09/21 at 1604, Until Tu06/09/21 at 1722, Anesthesia Intra-op, Routine Given 2021 4:04 PM EST 8 mg dexmedetomidine (Precedex) (4 mcg/mL) in sodium chloride 0.9% 50 mL infusion Intravenous, CONTINUOUS PRN, Starting on Tue06/09/21 at 1605, Until Tu06/09/21 at 1722, Anesthesia Intra-op New Bag 2021 4:05 PM EST 0.3 mcg/kg/hr 7.08 mL/hr fentaNYL (pf) (50 mcg/mL) multi-dose injection Intravenous, PRN, Starting on Tue06/09/21 at 1529, Until Tue06/09/21 at 1722, Anesthesia Intra-op, Routine Given 2021 4:08 PM EST 100 mcg Given 2021 3:48 PM EST 50 mcg Given 2021 3:42 PM EST 50 mcg HYDROmorphone (Dilaudid) (2 mg/mL) multi-dose injection solution Intravenous, PRN, Starting on Tue06/09/21 at 1605, Until Tue06/09/21 at 1722, Anesthesia Intra-op, Routine Given 2021 4:05 PM EST 1 mg lactated ringers infusion Intravenous, CONTINUOUS PRN, Starting on Tue06/09/21 at 1515, Until Tue06/09/21 at 1722, Anesthesia Intra-op New Bag 2021 3:15 PM EST lidocaine (pf) (Xylocaine) (20 mg/mL) 2% injection syringe Intravenous, PRN, Starting on Tue06/09/21 at 1525, Until Tue06/09/21 at 1722, Anesthesia Intra-op, Routine Given 2021 3:25 PM EST 100 mg midazolam (pf) (Versed) (1 mg/mL) multi-dose injection Intravenous, PRN, Starting on Tue06/09/21 at 1518, Until Tue06/09/21 at 1722, Anesthesia Intra-op, Routine Given 2021 3:18 PM EST 2 mg ondansetron (pf) (Zofran) (2 mg/mL) injection Intravenous, PRN, Starting on Tue06/09/21 at 1657, Until Tue06/09/21 at 1722, Anesthesia Intra-op, Routine Given 2021 4:57 PM EST 4 mg propofoL (Diprivan) (10 mg/mL) infusion Intravenous, CONTINUOUS PRN, Starting on Tue06/09/21 at 1631, Until Tue06/09/21 at 1722, Anesthesia Intra-op, Routine New Bag 2021 4:31 PM EST 100 mcg/kg/min 56.64 mL/hr propofoL (Diprivan) 10 mg/mL bolus injection (Anesthesia) Intravenous, PRN, Starting on Tue06/09/21 at 1525, Until Tue06/09/21 at 1722, Anesthesia Intra-op Given 2021 3:26 PM EST 100 mg Given 2021 3:25 PM EST 200 mg documented in this encounter Care Teams Short Order Fry Cook Relationship Specialty Start Date End Date Chelsey Preciado PA [address] [place] [address] PCP - General Family Medicine 02/08/21 documented as of this encounter
--- OUTSIDE RECORDS SUMMARY | 2024-06-25 13:30 | XMS_ITS | Encounter Summary ---
Author Organization [facility] Address [facility] [place] [address] Care Team Providers Care Bookstore Manager Name Role Phone None Primary Care Provider Unavailabl e Encounter Details Date Type Department Care Team (Latest Contact Info) Description 12/21/2016 - 12/21/2016 11:59 PM EDT Hospital Encounter Radiology Library at [facility] [place] [address] Nichelle Boswell MD [facility] [place] [address] Pain Discharge Disposition: Home Social History Tobacco Use Types Packs/Day Years Used Date Smoking Tobacco: Never Assessed Sex and Gender Information Value Date Recorded Sex Assigned at Female 04/08/2021 1:54 PM EDT Gender Identity Female 04/08/2021 1:54 PM EDT Sexual Orientation Straight 04/08/2021 1: 54 PM EDT documented as of this encounter Medications at Time of Discharge Medication Sig Dispensed Refills Start Date End Date levothyroxine (SYNTHROID) 137 mcg Tablet Take 137 mcg by mouth daily. ondansetron (ZOFRAN) 4 mg Tablet Take 1 tablet by mouth every 8 hours as needed for Nausea. 20 tablet 12/22/2016 04/09/2021 ibuprofen (ADVIL;MOTRIN) 600 mg Tablet Take 1 tablet by mouth every 6 hours as needed for Pain. 30 tablet 1 05/22/2015 04/09/2021 levothyroxine (SYNTHROID) 125 mcg Tablet Take 1 tablet by mouth every morning. 30 tablet 1 05/22/2015 04/09/2021 oxyCODONE (ROXICODONE) 5 mg Tablet Take 1 tablet by mouth every 4 hours as needed for Pain (mild to moderate pain (1-6)). 10 tablet 0 05/22/2015 04/09/2021 polyethylene glycol (MIRALAX) 17 gram Powder in Packet Take 17 g by mouth daily. 14 each 0 05/22/2015 04/09/2021 senna-docusate (PERICOLACE) 8.6-50 mg Tablet Take 1 tablet by mouth 2 times daily. 60 tablet 1 05/22/2015 04/09/2021 documented as of this encounter Plan of Treatment Not on file documented as of this encounter Procedures Procedure Name Priority Date/Time Associated Diagnosis Comments FILM LIBRARY STORAGE ONLY ULTRASOUND STUDY Routine 12/21/2016 12:00 AM EDT Pain documented in this encounter Results * Film Library- Storage Only Ultrasound Study (12/21/2016 12:00 AM EDT) Narrative RIGOBERTO - 12/21/2016 10:51 PM EDT This exam is for storage only and is auto-finalizing. Nichelle Boswell MD IMG FILM LIBRARY ORD ERABLES RIGOBERTO [place], [place] documented in this encounter Visit Diagnoses Diagnosis Pain Generalized pain documented in this encounter Care Teams Bookstore Manager Relationship Specialty Start Date End Date None None PCP - General 12/21/16 02/07/21 documented as of this encounter
--- OUTSIDE RECORDS SUMMARY | 2024-06-25 13:30 | XMS_ITS | Encounter Summary ---
Author Organization [facility] Address [address] [place] [address] Care Team Providers Care Educational Speech Language Clinician Name Role Phone Yumiko, Yan LACKEY Unavailable Unavailable Chelsey Preciado PA-C Primary Care Provider + Encounter Details Date Type Department Care Team (Late st Contact Info) Description 09/07/[address] [facility] Pathology & Laboratory Medicine - [address] [address] Gillian Sanchez MD [address] [place] [phone] Neoplasm of unspecified behavior of bone, soft tissue, and skin Social History Tobacco Use Types Packs/Day Years Used Date Smoking Tobacco: Never Smokeless Tobacco: Never Interpersonal Safety Answer Date Record ed Physically Hurt Never 01/06/2020 Verbally Threaten Not on file 01/06/2020 Comments Unknown Sex and Gender Information Value Date Recorded Sex Assigned at Not on file Legal Sex Female 18:38 EST Gender Identity Not on file Sexual Orientation Not on file documented as of this encounter Plan of Treatment Not on file documented as of this encounter Procedures Procedure Name Priority Date/Time Associated Diagnosis Comments SURGICAL PATHOLOGY Today 09/06/2022 10 :45 EDT Neoplasm of unspecified behavior of bone, soft tissue, and skin documented in this encounter Results * SURGICAL PATHOLOGY (09/06/2022 10:45 EDT) Note to Patient The following pathology results have been interpreted by your pathologist and may be available to you before your health provider has had the opportunity to review them. Please allow time for your provider to receive these results and explore management options, if applicable. 09/08/2022 12:53 [facility] Final Diagnosis A. SKIN OF ARM, RIGHT, PUNCH BIOPSY: - Mild dermal fibrosis with reactive blood vessels, sparse inflammation and focal acantholytic dyskeratosis. See comment. B. SKIN OF CALF, RIGHT UPPER, PUNCH BIOPSY: - Dermatofibroma. 09/08/2022 12:53 [facility] Diagnosis Comment In specimen A, the findings are non-specific despite multiple deeper levels. There is no evidence of a neoplasm. Reactive blood vessels are noted but no definitive evidence of a vascular proliferation. These results were discussed with Dr. Sanchez's office. 09/08/2022 12:53 [facility] Attestation By the signature below, the attending physician certifies that they have 1) personally conducted a gross and/or microscopic examination of the described specimen(s), and/or personally interpreted the results of laboratory testing of the described specimen(s), and 2) personally rendered or confirmed the above diagnosis. 09/08/2022 12:53 [facility] at 1253 Clinical History Clinical diagnosis code: D49.2; per Dr. Sanchez's office: arm lesion is solitary 09/08/2022 12:53 [facility] Gross Description A. Received in formalin labelled with proper patient identification (initials N, J) and 1. R arm is a punch biopsy of huff-white skin (0.5 cm in diameter and 0.6 cm in thickness). The margins are inked blue, the specimen is bisected and entirely submitted in A1. B. Received in formalin labelled with proper patient identification (initials N, J) and 2. R upper calf is a punch biopsy of huff-worthing[place] centrally wor[place]-white skin (0.6 cm in diameter and 0.4 cm in thickness). The margins are inked blue, the specimen is bisected and entirely submitted in B1. Mary Pop 09/07/2022 11:19 09/08/2022 12:53 EDT [facility] Performing Lab [facility] 09/08/2022 12:53 EDT [facility] Scanned Images 09/08/2022 12:53 EDT [facility] Tissue TISSUE SPECIMEN FROM SKIN / Unknown 09/06/2022 10:45 EDT 09/07/2022 8:46 EDT Tissue specimen (specimen) SPECIMEN FROM SKIN / Unknown 09/06/2022 10:45 EDT 09/07/2022 8:46 EDT us Gillian Sanchez MD PATHOLOGY ORDERABLES Final Res ult [facility] [address] [place] [address] documented in this encounter Visit Diagnoses Diagnosis Neoplasm of unspecified behavior of bone, soft tissue, and skin documented in this encounter Care Teams Educational Speech Language Clinician Relationship Specialty Start Date End Date Chelsey Preciado PA-C [address] [place] [phone] PCP - General 09/10/21 Yan Calderon MD 05/03/16 documented as of this encounter
--- OUTSIDE RECORDS SUMMARY | 2024-06-25 13:30 | XMS_ITS | Encounter Summary ---
[place] [address] Care Team Providers Care Film Flat Inspector Name Role Phone Chelsey Preciado Primary Care Provider +1- [phone] Encounter Details Date Type Department Care Team (Late st Contact Info) Description 06/01/2021 Telephone [place] [phone] Mindi Wong Social History Tobacco Use Types [...] * Telephone Encounter - Mindi Wong - 06/01/2021 10:17 AM ESTSummary: pt trying to make payment -pt has reached out to ben overton, our department and billing for assistance documented in this encounter Plan of Treatment Not on file documented as of this encounter Visit Diagnoses Not on filedocumented in this encounter Care Teams Film Flat Inspector Relationship Specialty Start Date End Date Chelsey Preciado PA [address] [place] [address] PCP - General Family Medicine 02/08/21 documented as of this encounter
--- OUTSIDE RECORDS SUMMARY | 2024-06-25 13:30 | XMS_ITS | Encounter Summary ---
[facility] [place] [address] Care Team Providers Care Qa Automation Architect Name Role Phone Chelsey Preciado Primary Care Provider +1- [phone] Encounter Details Date Type Department Care Team (Late st Contact Info) Description 05/19/2021 2:00 PM EST Office [place] [address] Social History Tobacco Use Types Packs/Day Years [...] on filedocumented in this encounter Care Teams Qa Automation Architect Relationship Specialty Start Date End Date Chelsey Preciado PA [address] [place] [address] PCP - General Family Medicine 02/08/21 documented as of this encounter
--- OUTSIDE RECORDS SUMMARY | 2024-06-25 13:30 | XMS_ITS | Encounter Summary ---
Author Organization [facility] [place] [address] Care Team Providers Care Ceramic Chemist Name Role Phone None Primary Care Provider Unavailabl e Encounter Details Date Type Department Care Team (Late st Contact Info) Description 03/10/2017 External Results [place] [address] Camille Ventura LOSS PREVENTION [facility] [place] [address] Social History Tobacco Use Types Packs/Day Years [...] LAB CBC CMP THYROID RESULTS PANEL Routine 03/03/2017 documented in this encounter Results * CBC / CMP / Thyroid External Results (03/03/2017) Sodium 138 Potassium 4.1 Chloride 102 Carbon Dioxide 27 Blood Urea Nitrogen 10 Creatinine 0.72 Est Glomerular Filtration Rate >60 Glucose 255 Calcium 9.4 Protein, Total 7.6 Albumin 4.1 Bilirubin, Total 0.62 Alkaline Phosphatase 71 Aspartate Aminotransferase 82 Alanine Aminotransferase 283 Historical Provider EXTERNAL LAB EM PINEDA documented in this encounter Visit Diagnoses Not on filedocumented in this encounter Care Teams Ceramic Chemist Relationship Specialty Start Date End Date None None PCP - General 12/21/16 02/07/21 documented as of this encounter
--- OUTSIDE RECORDS SUMMARY | 2024-06-25 13:30 | XMS_ITS | Encounter Summary ---
Author Organization [facility] [place] [address] Care Team Providers Care Developer Programmer Analyst Name Role Phone Chelsey Preciado Primary Care Provider [phone] Reason for Visit * Auth/Cert Specialty Diagnoses / Procedures Referred By Dayna mendoza Referred To Contact Diagnoses macromastia Procedures PRO REDUCTION OF LARGE BREAST REDUCTION MAMMOPLASTY, MALENA (WRVU 16.03) MODIFIER DOYLE Referral ID Status Reason Start Date Expiration Date Visits Re quested Visits Authorized [id number] 1 1 Encounter Details Date Type Department Care Team (Latest Contact Info) Description 2021 1:13 PM EST - 2021 8:19 PM [facility] Encounter [place] [address] Isaac Crane MD [facility] [place] [address] Discharge Disposition: Home Social History Tobacco Use [...] Mass Index 32.59 2021 1:27 PM EST documented in this encounter Discharge Instructions * Discharge Instructions* Mala Valencia RN - 2021 6:47 PM EST Images from the original note were not included. DRAIN CARE INSTRUCTIONS This device collects fluid, promotes healing and recovery, and reduces the chance of infection. Thedrain will be in place until your doctor feels it can be removed. *Strip and empty drain(s) at least twice a day or when full and record output on your chart* Call clinic when each drain has 30cc or less in 24 hours for two days in a row How to Strip and Empty Your JAMES Drain: 1. Wash your hands. 2. Unpin the drain from your clothing. 3. Strip the Tube: a. Pinch the tube where it is inserted in to the skin with one hand. b. Use the other hand to gently squeeze the tube and slide fingers down towards bulb. This forces drainage into bulb. Some drainage may remain in tubing. c. Repeat as necessary in order to facilitate the drainage. 4. Emptying Drain: a. Open the top of the drain. Turn the drain upside down and squeeze the contents of the bulb into the measuring cup. Do not disconnect drain from tubing or rinse it out. b. Record drainage on your chart when emptying bulb. Remember to record the drainage from each drain separately if applicable. c. Use one hand to squeeze all of the air from the bulb. With the drain still squeezed, use your other hand to replace the stopper/plug. This creates the suction. . 5. Pin the drain back to your clothing. 6. Wash your hands again Troubleshooting ??? The bulb is not compressed- Undo plug, re-squeeze bulb and replace plug while squeezing bulb. If the bulb remains expanded, then notify your doctor. ??? No drainage or sudden decrease in amount of drainage- This is usually due to clots in the drain. Follow the instructions on how to strip the drain tubing. If tube accidentally falls out- Place a dry gauze dressing over the drain site and notify your doctor. ??? Increased redness, thick or smelly drainage, swelling, or heat around the tube insertion site- This may be a sign of infection. Take your temperature: if it is higher than 101F or 38.8C, call your doctor immediately. Drainage Record NAME: Date of Surgery: Date: Time: If more than one drain, which one: Drainage Amount (per drain) Total Amount (per drain; in 24 hours) * Patient Instructions* Alicia Brandon MD - 2021 1:43 PM EST Breast Reduction Discharge Instructions ?? The healing process after breast reduction surgery varies with each person. You should expect tofeel tired for the first 2 - 3 weeks due to anesthesia and the healing process. Rest often during the day and get a good night sleep. Pain (short term and extermination inspector) ?? With any surgery there is some discomfort or pain. You should take ibuprofen 48 hours after yoursurgery. We will prescribe narcotic pain medication in case you require additional pain medication.Take as prescribed and only as needed. ?? We recommend taking an pngl-qnp-Yhnqfte stool softener, such as Colace (docusate) or a gentle laxative while taking your narcotic pain reliever. This will help to maintain bowel regularity and prevent straining. Drink plenty of water. ?? You will may have nerve pain after your surgery because the nerve endings have been disturbed. Nerve pain may feel like a burning sensation, itching or a shooting, electric shock pain. This is normal and will get better as you heal. Swelling ?? Moderate bruising and swelling is normal in the first few weeks after surgery. The swelling willgradually go down, but it may remain for 3 to 6 months. ?? To help with swelling wear your compression bra. Drains ?? Record drain output and bring to your first clinic appointment with you. Based on the nursing assessment, your drain will likely be removed at this appointment. ?? The nurses will show you how to care for the drains Showering ?? You may shower tomorrow. ?? Do not take a bath or use a hot tub until incisions are completely healed. ?? If you have drains in place, tie a shoe lace or string around your neck and attach the drains tothis to prevent accidental removal. ?? Have someone nearby during your first shower. Incisions/Dressings ?? You may have some red, pink, yellow/clear drainage from your incisions for the first 1-2 weeks. Change gauze as needed. Continue to use dressings until there is no more drainage. DO???S AND DON???TS FOR THE NEXT 6 WEEKS ?? Do not drive a motor vehicle for 1-2 weeks or until you can handle the steering wheel without discomfort. Do not drive while taking your narcotic. You will be able to wear a seat belt if you placea small pillow over your chest area. ?? Do not engage in sexual activity for at least 1 week. ?? Do not smoke or be around anyone who smokes for 2 weeks after your surgery. Smoking delays healing and can lead to infection. ?? Do not lift more than 5 pounds or bend at the waist to lift for 6 weeks. ?? Do not participate in strenuous activities such as running or aerobics for 6 weeks. ?? Do resume walking at a gentle pace. ?? Protect your incisions from the sun for 6 months. ?? You may return to work in 1-6 weeks (average time is 3 weeks) depending upon your work activity. GETTING A GOOD NIGHT SLEEP ?? Your surgeon may ask you to sleep on your back for a few weeks. Here are some suggestions for a good nights sleep. ?? Try sleeping in a recliner. ?? Have extra pillows in your bed for support: two along your side and one under your knees to relieve lower back pressure. Buy a large body pillow or a pillow with arm rests for sitting up in bed. GETTING OUT OF BED ?? You will be asked to limit the use of your arms for a few weeks after surgery. This can be a problem when trying to get out of bed. The following suggestions help you get out of bed with minimal use of your arms. ?? When in bed, pull your knees up towards your chest and tip to the side, gently rolling out of bed. Take care not to roll onto your breasts. ?? Create a nest of pillows to prop you in a semi-upright position helps give you that extra boost to get out of bed. ?? Have someone put gentle pressure to your lower shoulder blades as you sit up. This gives you theextra power you need to get to your feet. Complications: Call your doctor with the following signs of infection: ?? A temperature over 100.4 F or 38 C ?? Redness at the incision line that spreads away from the incision after the first 48 moody thick yellow, foul smelling drainage ?? Increasing pain that is not relieved by your pain medicine ?? One breast becomes much larger and more firm than the other Contact your Doctor ?? To make an appointment or for questions about scheduling, please contact our administrative offices at [phone] ?? For clinical questions, please call our nurses at [phone] ?? Both offices are open Tuesday thru Tuesday 8a - 5p. With emergencies after hours, call the hospital molded goods operator at [phone] and ask for the Plastic Surgery Resident occupational psychologist. Future Appointments Date Time Provider Department Center 06/10/2021 10:00 AM Risa Fong PARK MANAGER [facility] documented in this encounter Medications at Time of Discharge Medication Sig Dispensed Refills Start Date End Date levothyroxine (SYNTHROID) 137 mcg Tablet Take 137 mcg by mouth daily. traMADoL (Ultram) 50 mg Tablet Take 1 tablet by mouth every 6 hours as needed for Pain. 10 tablet 2021 06/17/2021 documented as of this encounter H&P Notes * Isaac Crane MD - 2021 1:40 PM EST Patient Name: Radha Veras Patient Age: 36 y.o. Birthdate: 1985 Admit date: 2021 Attending Physician: Isaac Crane MD Plastic Surgery Preoperative H&P: Patient Name: Radha Veras Patient : 1985 Today's Date: 2021 Radha Veras is a 36 y.o. female with No chief complaint on file. who presents today for bilateral breast reduction. No changes since last seen. Past Medical History: Diagnosis Date ??? Hypothyroidism History reviewed. No pertinent surgical history. Family History Problem Relation Age of Onset ??? Breast Cancer Neg Hx Social History Socioeconomic History ??? Marital status: Spouse name: Not on file ??? Number of children: Not on file ??? Years of education: Not on file ??? Highest education level: Not on file Occupational History ??? 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 Smoking status: Never Smoker ??? Smokeless tobacco: Never Used ??? Tobacco comment: n/a Vaping Use ??? Vaping Use: Never used Substance and Sexual Activity ??? Alcohol use: Yes Comment: occasional ??? Drug use: No Comment: n/a ??? Sexual activity: Yes Partners: Male Comment: n/a Other Topics Concern ??? Not on file Social History Narrative Merged History Encounter Social Determinants of Health Financial Resource Strain: Not on file Food Insecurity: Not on file Transportation Needs: Not on file Physical Activity: Not on file Housing Stability: Not on file Allergies Allergen Reactions ??? Acetaminophen Other (See Comments) Pt reports she had jaundice following tylenol, told her to avoid further acetaminophen. Review of systems: As per HPI, otherwise non-contributory. Exam: none General: NAD Resp: CTAB CV: normal rate, regular rhythm A/P: Radha Veras is a 36 y.o. female with No chief complaint on file. who presents for bilateral breast reduction. - Proceed to OR. The risks, benefits and indications were reviewed with the patient and there remains an indication for surgery. Consent signed. - Preoperative abx ordered Alicia Brandon MD Plastic Surgery Resident P# [id number] Attending: Patient was seen and examined in the preoperative holding area marked in a standing position with her present. Risk and benefits reviewed at length with the patient including bleeding infection scarring delayed healing nipple loss need for revision or additional surgery wound healing complications and unsatisfactory cosmetic result. We also discussed her breast asymmetry that she would likely still have some asymmetry at the end of the operation. She understood this and wished to proceed with surgery. Informed consent was signed and placed on the chart. documented in this encounter Miscellaneous Notes * Brief Op Note - Alicia Brandon MD - 2021 5:00 PM EST Brief Operative Note Patient Name: Radha Veras : [id number] MR#: [id number] Case Date: 2021 Surgeon: Surgeon(s) and Role: * Isaac Crane MD - Primary * Katarzyna Oakley MD - Resident * Alicia Brandon MD - Resident Preoperative diagnosis: macromastia Postoperative diagnosis: macromastia Procedure(s) (LRB): REDUCTION MAMMOPLASTY, MALENA (WRVU 16.03) (Bilateral) MODIFIER DOYLE (N/A) Anesthesia: General Findings: s/p bbr (right breast 425 g, left breast 515 g) Complications: none Estimated Blood Loss: 70cc Specimens removed during surgery: Order Name Source Comment Collection Info Order Time SPECIMEN TO PATHOLOGY Left bReast Reduction Tissue: 515 g [id number] Macromastia Left Breast Reduction Tissue: 515 g excision 2021 4:53 PM Time specimen removed from patient: 4:51 PM Number of tissue samples (in container) 1 SPECIMEN TO PATHOLOGY Right Breast Reduction Tissue: 425 g [id number] Macromastia Right BReast Reduction Tissue: 425 g excision 2021 4:53 PM Time specimen removed from patient: 4:52 PM Number of tissue samples (in container) 1 Fluids: Intraprocedure Crystalloid Total None PRBCs: none (See Anesthesia Record/Report for Other Blood Products) Urine Output: (no urine output recorded) Drains: 2 drains Disposition: awakened from anesthesia, extubated and taken to the recovery room in a stable condition, having suffered no apparent untoward event. Condition: doing well without problems (Please see the Surgical Encounter Summary for any Implant and Specimen details pertinent to this patient.) Infection Bundle used? N/A Plan: - Follow 06/10 with risa for drain check and removal No suture removal Future Appointments Date Time Provider Department Center 06/10/2021 10:00 AM Risa Fong APRN [facility] 4[facility] * Op Note - Isaac Crane MD - 2021 3:40 PM EST [facility] Operative Note Patient Name: Radha Veras : [id number] MR#: [id number] Case Date: 2021 Surgeon: Surgeon(s) and Role: * Isaac Crane MD - Primary * Katarzyna Oakley MD - Resident * Alicia Brandon MD - Resident Preoperative diagnosis: macromastia Postoperative diagnosis: macromastia Procedure(s) (LRB): REDUCTION MAMMOPLASTY, MALENA (WRVU 16.03) (Bilateral) MODIFIER DOYLE (N/A) Anesthesia: General Estimated Blood Loss: 70 mL Specimens removed during surgery: Order Name Source Comment Collection Info Order Time SPECIMEN TO PATHOLOGY Left bReast Reduction Tissue: 515 g [id number] Macromastia Left Breast Reduction Tissue: 515 g excision 2021 4:53 PM Time specimen removed from patient: 4:51 PM Number of tissue samples (in container) 1 SPECIMEN TO PATHOLOGY Right Breast Reduction Tissue: 425 g [id number] Macromastia Right BReast Reduction Tissue: 425 g excision 2021 4:53 PM Time specimen removed from patient: 4:52 PM Number of tissue samples (in container) 1 Drains: Poncho drain was placed in each breast. Surgical Closure: Primary Closure - skin incision is closed but with open spaces for wires, viviane, drains or other devices Disposition: awakened from anesthesia, extubated and taken to the recovery room in a stable condition, having suffered no apparent untoward event. Condition: doing well without problems (Please see the Surgical Encounter Summary for any Implant and Specimen details pertinent to this patient.) HPI/Surgical Indications/Procedure Description: Radha Veras is a 36 y.o. woman with symptomaticbreast hypertrophy. She presents for reduction mammoplasty. In the holding area she was marked for a superior medial pedicle Doyle incision pattern reduction mammaplasty. All questions were answered and consent signed. She was given a single prophylactic dose of antibiotics. Procedure: The patient was brought to the Main Operating Room where she was placed supine on the Operating Room table. All bony prominences were padded and SCD boots placed. After the induction of general endotracheal anesthesia, the chest wall was prepared and draped in the standard sterile fashion. Through small stab wounds, the breasts were infiltrated each with 100 cc of tumescent solution ofsaline, epinephrine and xylocaine. The precise outline of the superomedial pedicle was designed andthe areolar diameter was marked using a 42 mm template. Methylene blue was tattooed (using a 25 gauge needle) into the thapa anatomic landmarks and quadrants of the areolar diameter. A tourniquet was then wrapped around the base of each breast and the pedicle was deepithelialized. The remainder of the incisions were made through skin and superficial subcutaneous tissue. Beginning inferiorly, the tissue to be excised was from the pectoralis fascia and then developed contiguously with thelateral pole of the breast and a superior extension. The breast was thus lifted off of the pectorali s, with excision of excess breast tissue then superiorly, laterally, inferiorly and posteriorly. The incisions were then temporarily closed with abelardo and the patient sat up right to examine for symmetry. Further tissue was excised until symmetry was achieved and we were satisfied with the shape of her breasts. In all, 425 grams of tissue was excised from the right breast and 515 grams was excised from the left breast. The breast wounds were then opened and irrigated copiously with normal saline. Hemostasis was achieved with Bovie cautery. Bilateral 19 Poncho drains were placed and brought out through lateral stab wound incisions. Closure was first begun by approximating the 12 o'clock position of the new NAC witha deep dermal stitch of 4-0 PDS. The rest of the wound closure was achieved with buried 4-0 PDS, insorb abelardo and then a running subcuticular of 4-0 Monocryl followed by surgical glue and steristrips. Dressings consisted of sterile ABD pads and a surgical bra. The breasts were symmetrical at the end of the case and there was good color/perfusion of the NAC complex bilaterally. Sponge and needle counts were all correct at the end of the case. There were no intraoperative complications. The patient was awakened from anesthesia without any difficulties. Infection Bundle used? No Attestation: Case Date: 2021 I was present and I participated during the entire procedure (does not need to include opening and closing). ISAAC CRANE MD 06/25/2021 documented in this encounter Plan of Treatment Not on file documented as of this encounter Procedures Procedure Name Priority Date/Time Associated Diagnosis Comments SURGICAL PATHOLOGY REPORT Routine 2021 4:53 PM EST SPECIMEN TO PATHOLOGY Routine 2021 4:53 PM EST SPECIMEN TO PATHOLOGY Routine 2021 4:53 PM EST MODIFIER DOYLE Yes 2021 3:19 PM EST macromastia Breast Reduction () Yes 2021 3:19 PM EST macromastia documented in this encounter Results * Surgical Pathology Report (2021 4:53 PM EST) Final Diagnosis [id number] ? Location: [facility]; [facility]; The signing pathologist has (i) examined the relevant preparation(s) for the specimen(s) and (ii) rendered or confirmed the diagnosis(es). . ?Surgical Pathology DIAGNOSIS A - Left breast, reduction mammoplasty: ??- Benign breast tissue with focal apocrine metaplasia B - Right ??breast, reduction mammoplasty: ??- Benign breast tissue Electronically signed by: ?Papo LACKEY, Khurram Hong Verified: ??06/16/2021 11:13 ??Pathologist Performed at: ??-[facility] Dept. of Pathology, [place], [place] SPECIMEN(S) SUBMITTED A - Left breast B - Right ??breast CLINICAL INFORMATION Macromastia SPECIMEN PROCESSING A - Labeled/Fixative: Left breast reduction tissue: 515 g, fresh. Quantity/Size/Anuj ght: Multiple, 22.5 x 15 x 4.2 cm, 514 g. Tissue Description: Fibrofatty breast tissue. Skin: Unremarkable. Sectioning: Adipose and dense, [place]-white fibrous tissue. Sections/Processi ng: Forming Yardage Control Operator sections in 3 cassettes labeled A1-A3. B - Labeled/Fixative: Right breast reduction tissue 425 g, fresh. Quantity/Size/Anuj ght: Multiple, 20.7 x 12.3 x 3.5 cm, 440 g. Tissue Description: Fibrofatty breast tissue. Skin: Unremarkable. Sectioning: Adipose and dense, [place]-white fibrous tissue. Sections/Processi ng: Forming Yardage Control Operator sections in 3 cassettes labeled B1-B3. ??pps 06/16/2021 11:13 AM EST [facility] BREAST STRUCTURE / Unknown 2021 4:53 PM EST 2021 4:53 PM EST BREAST STRUCTURE / Unknown 2021 4:53 PM EST 2021 4:53 PM EST Isaac Crane MD PATHOLOGY/CYTOLOGY O MERT Performing Organization Address [facility]/ZIP Co de Phone Number [facility] [place] [place] [address] * Specimen to Pathology (2021 4:53 PM EST) AP Specimen 2021 4:53 PM EST 2021 4:53 PM EST Narrative [facility] - 2021 4:53 PM EST Specimen requisition ordered. ??Separate Pathology report to follow Isaac Crane MD PATHOLOGY/CYTOLOGY O MERT Performing Organization Address City/[facility]/ZIP Co de Phone Number [facility] [place] [place] [address] * Specimen to Pathology (2021 4:53 PM EST) AP Specimen 2021 4:53 PM EST 2021 4:53 PM EST Narrative [facility] - 2021 4:53 PM EST Specimen requisition ordered. ??Separate Pathology report to follow Isaac Crane MD PATHOLOGY/CYTOLOGY O MERT [facility] [place] [place] [address] documented in this encounter Visit Diagnoses Not on filedocumented in this encounter Administered Medications Inactive Administered Medications - up to 3 most recent administrations Medication Order MAR Action Action Date Dose Rate Site ceFAZolin (Ancef) 2 g in dextrose 5% 100 mL infusion 2 g, Intravenous, EVERY 8 HOURS, First dose on Tue06/09/21 at 1400, Until Discontinued, Administer over 30 Minutes, Indication for (Active or Suspected): Prophylaxis HYDROmorphone (Dilaudid) (0.2 mg/1 mL) injection syringe 0.4 mg 0.4 mg, Intravenous, EVERY 10 MIN PRN, Starting on Tue06/09/21 at 1738, Until Tue06/09/21 at 2014, Pain, For Mild to Moderate Pain (1-5 out of 10), Hold for respiratory rate less than 10 per minute. Maximum dose 4 mg over one hour including administrations in the OR. If multiple pain medications are ordered, start with HYDROmorphone or morphine and use fentaNYL for breakthrough pain, PACU Recovery, Routine Given 2021 6:00 PM EST 0.4 mg Given 2021 5:41 PM EST 0.4 mg ondansetron (pf) (Zofran) (2 mg/mL) injection 4 mg 4 mg, Intravenous, EVERY 30 MIN PRN, 2 doses, Starting on Tue06/09/21 at 1738, Until Tue06/09/21 at 2014, Nausea, Maximum total dose of 8 mg (including OR administration). If multiple antiemetics ordered, use ondansetron first and if ineffective use prochlorperazine second and if ineffective use promethazine, PACU Recovery Given 2021 8: 08 PM EST 4 mg traMADoL (Ultram) tablet 50 mg 50 mg, Oral, EVERY 6 HOURS PRN, Starting on Tue06/09/21 at 1341, Until Tue06/09/21 at 2219, Pain, Routine documented in this encounter Active and Recently Administered Medications Times are shown in EST. Scheduled Medication Order 06/07/2021 06/08/2021 2021 ceFAZolin (Ancef) 2 g in dextrose 5% 100 mL infusion 2 g, Intravenous, EVERY 8 HOURS, First dose on Tue06/09/21 at 1400, Until Discontinued, Administer over 30 Minutes, Indication for (Active or Suspected): Prophylaxis 1400 (Due) PRN Medication Order 06/07/2021 06/08/2021 2021 EPINEPHrine (Adrenalin) (1 mg/mL) injection (CANCELED) ONCE PRN, Starting on Tue06/09/21 at 1549, Until Tue06/09/21 at 2219, Intra-Operative (Intra-Procedure), Routine 1549 (Given - Provid er: Isaac Crane MD - Comment: tumesence solution: epinepherine 1 ml with lidocaine 1% plain 50 mls in 1000 mls injectable saline) HYDROmorphone (Dilaudid) (0.2 mg/1 mL) injection syringe 0.4 mg (CANCELED)(Linked Group 1) 0.4 mg, Intravenous, EVERY 10 MIN PRN, Starting on Tue06/09/21 at 1738, Until Tue06/09/21 at 2014, Pain, For Mild to Moderate Pain (1-5 out of 10), Hold for respiratory rate less than 10 per minute. Maximum dose 4 mg over one hour including administrations in the OR. If multiple pain medications are ordered, start with HYDROmorphone or morphine and use fentaNYL for breakthrough pain, PACU Recovery, Routine 1741 (Given - Provid er: Mala Valencia RN)1800 (Given - Provider: Mala Valencia RN) lidocaine (Xylocaine) 1% (10 mg/mL) injection (CANCELED) ONCE PRN, Starting on Tue06/09/21 at 1551, Until Tue06/09/21 at 2219, Intra-Operative (Intra-Procedure), Routine 1551 (Given - Provid er: Isaac Crane MD - Comment: tumesence solution: epinepherine 1 ml with lidocaine 1% plain 50 mls in 1000 mls injectable saline) ondansetron (pf) (Zofran) (2 mg/mL) injection 4 mg (CANCELED) 4 mg, Intravenous, EVERY 30 MIN PRN, 2 doses, Starting on Tue06/09/21 at 1738, Until Tue06/09/21 at 2013, Nausea, Maximum total dose of 8 mg (including OR administration). If multiple antiemetics ordered, use ondansetron first and if ineffective use prochlorperazine second and if ineffective use promethazine, PACU Recovery 2007 (Given - Provid er: Mala Valencia RN) traMADoL (Ultram) tablet 50 mg 50 mg, Oral, EVERY 6 HOURS PRN, Starting on Tue06/09/21 at 1341, Until Tue06/09/21 at 2219, Pain, Routine Linked Groups Order Group 1: HYDROmorphone (Dilaudid) (0.2 mg/1 mL) injection syringe 0.4 mg (CANCELED)Jump to med 0.4 mg, Intravenous, EVERY 10 MIN PRN, Starting on Tue06/09/21 at 1738, Until Tue06/09/21 at 2013, Pain, For Mild to Moderate Pain (1-5 out of 10), Hold for respiratory rate less than 10 per minute. Maximum dose 4 mg over one hour including administrations in the OR. If multiple pain medications are ordered, start with HYDROmorphone or morphine and use fentaNYL for breakthrough pain, PACU Recovery, Routine Or HYDROmorphone (Dilaudid) (0.2 mg/1 mL) injection syringe 0.6 mg (CANCELED) 0.6 mg, Intravenous, EVERY 10 MIN PRN, Starting on Tue06/09/21 at 1738, Until Tue06/09/21 at 2013, Pain, For Moderate to Severe Pain (6-10 out of 10), Hold for respiratory rate less than 10 per minute. Maximum dose 4 mg over one hour including administrations in the OR. If multiple pain medications are ordered, start with HYDROmorphone or morphine and use fentaNYL for breakthrough pain, PACU Recovery, Routine documented in this encounter Care Teams Developer Programmer Analyst Relationship Specialty Start Date End Date Chelsey Preciado PA [address] [place] [address] PCP - General Family Medicine 02/08/21 documented as of this encounter
--- OUTSIDE RECORDS SUMMARY | 2024-06-25 13:30 | XMS_ITS | Encounter Summary ---
Author Organization [facility] Address [address] [place] [address] Care Team Providers Care Gum Scoring Machine Operator Name Role Phone Toll, Yan LACKEY Unavailable Unavailable Unknown, Provider Primary Care Provider Chelsey Krause PA-C Primary Care Provider + Encounter Details Date Type Department Care Team (Late st Contact Info) Description 04/23/2021 Lab Requisition [facility] Pathology & Laboratory Medicine - [address] [address] Outr Resulting Lab, Provider Social History Tobacco Use Types Packs/Day Years [...] Procedure Name Priority Date/Time Associated Diagnosis Comments ZZCOVID-19 TEST [facility] PCR Today 04/23/2021 10:30 EST COVID-19 TESTING Routine 04/23/2021 10:3 0 EST documented in this encounter Results * COVID-19 TEST [facility] PCR (04/23/2021 10:30 EST) Swab 04/23/2021 10:3 0 EST 04/23/2021 22:31 EST us Provider Outr Resulting Lab MICROBIOLOGY - GENER AL ORDERABLES Final Result Performing Organization Address [facility] de Phone Number [facility] [address] [place] [address] * COVID-19 TESTING (04/23/2021 10:30 EST) COVID-19 rt-PCR Result Negative Negative 04/24/2021 11:35 EST [facility] Comment: This test has not been FDA cleared or approved. This test has been authorized by FDA under an EUA for use by authorized laboratories. This test has been authorized only for detection of nucleic acid from 2019-nCoV, not for any other viruses or pathogens. This test is only authorized for the duration of the declaration that circumstances exist justifying the authorization of emergency use of in vitro diagnostic tests for detection and/or diagnosis of 2019-nCoV under section 564(b)(1) of Act, 21 U.S.C ?? 360bbb-3(b) (1), unless the authorization is terminated or revoked sooner. Negative results do not preclude 2019-nCoV infection and should not be used as the sole basis for treatment or other patient management decisions. Negative results must be combined with clinical observations, patient history, and epidemiological information. Performed on the [employer]bron[employer] Fusion instrument Performing Lab [place] [facility] 04/24/2021 11:35 EST [facility] Swab 04/23/2021 10:3 0 EST 04/23/2021 22:31 EST us Provider Outr Resulting Lab MICROBIOLOGY - GENER AL ORDERABLES Final Result Performing Organization Address [facility]/ZIP Co de Phone Number [facility] [address] [place] [address] documented in this encounter Visit Diagnoses Not on filedocumented in this encounter Care Teams Gum Scoring Machine Operator Relationship Specialty Start Date End Date Unknown, Provider, PCP - General 08/24/17 09/09/21 Chelsey Preciado PA-C [address] [place] [phone] PCP - General 09/10/21 Yan Calderon MD 05/03/16 documented as of this encounter
--- OUTSIDE RECORDS SUMMARY | 2024-06-25 13:30 | XMS_ITS | Encounter Summary ---
[place] [address] Care Team Providers Care Dormitory Maid Name Role Phone Chelsey Preciado Primary Care Provider [phone]- [phone] Encounter Details Date Type Department Care Team (Late st Contact Info) Description 02/10/2021 Telephone [place] [id number] Radha Briggs Social History Tobacco Use Types Packs/Day Years [...] on filedocumented in this encounter Care Teams Dormitory Maid Relationship Specialty Start Date End Date Chelsey Preciado PA [address] [place] [address] PCP - General Family Medicine 02/08/21 documented as of this encounter
--- OUTSIDE RECORDS SUMMARY | 2024-06-25 13:30 | XMS_ITS | Encounter Summary ---
Author Organization Formerly [facility] Address [facility] [place] [address] Care Team Providers Care Voip Engineer Name Role Phone Unavailable Primary Care Provider Unavailabl e Reason for Visit * Auth/Cert - Closed Specialty Diagnoses / Procedures Referred By Contac t Referred To Contact Diagnoses care following vaginal delivery POST TRANSFER Procedures IPI Referral ID Status Reason Start Date Expiration Date Visits Re quested Visits Authorized [id number] Closed 1 1 Encounter Details Date Type Department Care Team (Latest Contact Info) Description 05/21/2015 7:02 AM EST - 05/22/2015 12:29 PM [facility] [place] [address] Heaven Herrera MD [facility] [address] Discharge Disposition: Home Social History Tobacco Use Types Packs/Day Years Used Date Smoking Tobacco: Never Smokeless Tobacco: Never Alcohol Use Standard Drinks/Week Comments No 0 (1 standard drink = 0.6 oz pur e alcohol) Sex and Gender Information Value Date Recorded Sex Assigned at Female 04/08/2021 1:54 PM EDT Gender Identity Female 04/08/2021 1:54 PM EDT Sexual Orientation Straight 04/08/2021 1: 54 PM EDT documented as of this encounter Last Filed Vital Signs Vital Sign Reading Time Taken Comments Blood Pressure 128/79 05/22/2015 8:23 AM EST Pulse 102 05/22/2015 8:23 AM EST Temperature 36.7 ??C (98.1 ??F) 05/22/2015 8:23 AM ES T Respiratory Rate 16 05/22/2015 8:23 AM EST Oxygen Saturation 100% 05/22/2015 8:23 AM EST Inhaled Oxygen Concentration - - Weight - - Height - - Body Mass Index - - documented in this encounter Discharge Summaries * Lluvia Durant - 05/22/2015 11:52 AM EST Discharge Summary Patient Name: Radha Alcala Patient Age: 29 y.o. Language: Palauan Race: White Ethnicity: Not nor Admit date: 05/21/2015 Discharge date and time: 05/22/2015 12:09 PM Attending Physician: Heaven Herrera MD Discharge Physician: Hailey Valdovinos MD Care Provider: [place] Referring Hospital: [place] Follow-up Recommendations for Providers: Discuss contraception Early depression screening and support Inpatient Provider Contact Information: [facility] Department, Discharge Diagnoses (Hospital Problems) and Secondary Diagnoses (Chronic Problems) Active Hospital Problems Diagnosis ??? care following vaginal delivery Resolved Hospital Problems Diagnosis Date Resolved No resolved problems to display. There are no active non-hospital problems to display for this patient. Operations/Major Procedures: none Indication for Admission: care in close proximity to infant transferred to intensive care nursery History of Presentation: Radha Alcala is a 29 y.o. s/p at 39+2 weeks gestation being admitted for care in proximity to transferred to the intensive care nursery. HPI: Radha underwent an IOL for macrosomia at 39+2 weeks gestation. She received one dose of misoprostol followed by SROM and progressed spontaneously thereafter. She underwent a spontaneous vaginal delivery complicated by a 12 minute shoulder dystocia, hemorrhage, and a 4th degree perineal laceration. She was given pitocin IM, pitocin IV, and two doses of IM methergine. Hgb 13.9 on admission prior to delivery. EBL estimated at 1000cc. Apgars of were 0/0/0, weight 13lb 5oz (6000g). The patient was coded and pronounced , then had a respiration and heartbeat, so resuscitation was resumed. The was then transferred to [facility] the cooling protocol. The patient is appropriately devastated by the events of today. She reports that physically she is doing okay. Her bleeding is appropriate. She is very edematous from her delivery and sore. Hospital Course Including Delivery and Events Her course was uneventful. Her pain was controlled with oral pain medications, she was tolerating a regular diet, ambulating and voiding without difficulty, her fundal exam was as expectedand her lochia was within normal limits before discharge on day number 2. She has been pumping for her in the intensive care nursery with uncertain outcome. She will follow up with her care providers at 2 weeks for post depression screening/6 weeks for routine visit. Delivery Information See [place] documentation Vital signs at Discharge: BP: 128/79 mmHg, Heart Rate: 102, Temp: 36.7 ??C (98.1 ??F), Resp: 16, Functional and Cognitive status: Fully functional and cognitively intact Important Studies and Lab Data: Labs: Last 3 wbc, hgb, hct plt Recent Labs 05/21/15 1540 WBC 12.5* HGB 10.5* HCT 30.5* PLATELET 118* Recent Results (from the past 72 hour(s)) Cell Screen Result Value Ref Range Hgb Screen Negative ABO/Rh Typing Result Value Ref Range ABORh Type O Neg Antibody screen Result Value Ref Range Ab Screen Interp Negative Expires at 2359 on: 05/24/2015 Hemogram Result Value Ref Range WBC 12.5 (H) 4.0 - 10.0 x10(3)/mcL RBC 3.36 (L) 3.93 - 5.22 x10(6)/mcL Hemoglobin 10.5 (L) 11.2 - 15.7 gm/dL Hematocrit 30.5 (L) 34.0 - 45.0 % MCV 90.8 79.0 - 94.0 fL MCH 31.3 26.6 - 32.2 pg MCHC 34.4 32.0 - 36.5 gm/dL Platelets 118 (L) 145 - 370 x10(3)/mcL RDWSD 47.8 (H) 35.0 - 46.0 fL RDWCV 14.5 (H) 10.9 - 14.4 % MPV 12.6 (H) 9.0 - 12.0 fL Differential, Automated Result Value Ref Range Neutrophils % 77.4 % Neutr Abs (ANC) 9.67 (H) 1.50 - 6.30 x10(3)/mcL Lymphocytes % 13.4 % Lymphocytes Abs 1.7 1.0 - 3.6 x10(3)/mcL Monocytes % 8.7 % Monocyte Abs 1.1 (H) 0.2 - 1.0 x10(3)/mcL Eosinophils % 0.1 % Eosinophils Abs 0.0 0.0 - 0.5 x10(3)/mcL Basophils % 0.1 % Basophils Abs 0.0 0.0 - 0.2 x10(3)/mcL Immature Gran % 0.30 % Carina Gran Abs 0.04 0.00 - 0.05 x10(3)/mcL Prepare Rh Immune Globulin Result Value Ref Range Dispensed? Yes Studies: none Pending Studies and Lab Data: none Discharge Conditions/Prognosis: good Discharge to: Home Contraceptive Plans: unknown Allergies at Discharge: No Known Allergies Immunizations Given this Hospitalization: Immunization History Administered Date(s) Administered ??? Rho (D) Immune Globulin, IV or IM 05/22/2015 Discharge Medications: Your Medications New Medications Dose Details ibuprofen 600 mg Tab Commonly known as: ADVIL;MOTRIN Take 1 tablet by mouth every 6 hours as needed for Pain. 600 mg Quantity: 30 tablet Refills: 1 oxyCODONE 5 mg Tab Commonly known as: ROXICODONE Take 1 tablet by mouth every 4 hours as needed for Pain (mild to moderate pain (1-6)). 5 mg Quantity: 10 tablet Refills: 0 polyethylene glycol 17 gram Pwpk Commonly known as: MIRALAX Take 17 g by mouth daily. 17 g Quantity: 14 each Refills: 0 senna-docusate 8.6-50 mg Tab Commonly known as: PERICOLACE Take 1 tablet by mouth 2 times daily. 1 tablet Quantity: 60 tablet Refills: 1 Continued medications with new dosing Dose Details levothyroxine 125 mcg Tab Commonly known as: SYNTHROID Take 1 tablet by mouth every morning. What changed: - medication strength - how much to take - when to take this 125 mcg Quantity: 30 tablet Refills: 1 Smoking Status at Discharge: History Smoking status ??? Never Smoker Smokeless tobacco ??? Never Used Instructions Given to Patient at Discharge: There are no Patient Instructions on file for this visit. General Instructions Nurse Inpatient Note - Vaginal Delivery Medications Received: [X] Rhogam Given: (05/22/2015) Maternal Discharge Instructions Rest: Although it may seem impossible to get enough rest, simple planning will help. Try to get at least one four hour block of uninterrupted sleep in 24 hours; then plan to rest, and/or sleep when your baby does. Limiting visitors also helps. Fathers and other family members can help by doing housework, caring for other children and/or helping limit visitors. Nutrition: Your diet following the of your baby is as important as it was before the baby wasborn. Drink a minimum of 6-8 glasses a day. Do not attempt to lose weight during the first six weeks. Continue taking your vitamins until they are gone. Lochia: (Flow) Your flow should be no heavier than a normal period. It will be bright red for 2-3 days and then pinkish and finally colorless. If your flow becomes bright red again, decrease your activity. Do not use tampons until your care provider advises you it is OK. Perineum: For about a week continue to rinse yourself with warm water when you use the toilet. A sitz bath with Epsom salts taken 3-4 times a day may help relieve soreness. Kegel exercise, done regularly throughout the day, will help tighten the perineal muscles and speed recovery. Breast Care: Wear a well fitting bra to support your breasts. Ice packs to your breasts and Tylenolor Ibuprofen may be used to relieve discomfort from engorgement. Avoid stimulating your breasts: Do not let warm water from the shower fall on them; avoid holding your baby near your breasts until your milk begins to decrease and engorgement is relieved. Call your doctor or director medical for: ??? Fever more than 100.5 ??? Heavy bleeding that saturates a pad an hour ??? Clots larger than a plum ??? Increased abdominal pain, nausea, shaking chills ??? Breast with hot, hard, tender areas on the breast plus flu-like symptoms ??? depression occurs in a large percentage of women. We encourage you to contact your provider or a member of the nursing staff if you are feeling so overwhelmed that you are unable to care for yourself or your baby. Keep your follow up appointment. You may call the [facility] at any time for guidance or for answers to questions that come up prior to you follow up appointment. Your [facility] Provider can be reached during office hours at ??? Midwives ??? Obstetricians ??? [facility] Follow-up Clinic ??? AFTER OFFICE HOURS for the automatic line set up mechanic or director medical regional sales consultant Discharge References/Attachments None documented in this encounter Discharge Instructions * Discharge Instructions* Lluvia Lowry RN - 05/22/2015 12:07 PM EST Nurse Inpatient Note - Vaginal Delivery Medications Received: [X] Rhogam Given: (05/22/2015) Maternal Discharge Instructions Rest: Although it may seem impossible to get enough rest, simple planning will help. Try to get at least one four hour block of uninterrupted sleep in 24 hours; then plan to rest, and/or sleep when your baby does. Limiting visitors also helps. Fathers and other family members can help by doing housework, caring for other children and/or helping limit visitors. Nutrition: Your diet following the of your baby is as important as it was before the baby wasborn. Drink a minimum of 6-8 glasses a day. Do not attempt to lose weight during the first six weeks. Continue taking your vitamins until they are gone. Lochia: (Flow) Your flow should be no heavier than a normal period. It will be bright red for 2-3 days and then pinkish and finally colorless. If your flow becomes bright red again, decrease your activity. Do not use tampons until your care provider advises you it is OK. Perineum: For about a week continue to rinse yourself with warm water when you use the toilet. A sitz bath with Epsom salts taken 3-4 times a day may help relieve soreness. Kegel exercise, done regularly throughout the day, will help tighten the perineal muscles and speed recovery. Breast Care: Wear a well fitting bra to support your breasts. Ice packs to your breasts and Tylenolor Ibuprofen may be used to relieve discomfort from engorgement. Avoid stimulating your breasts: Do not let warm water from the shower fall on them; avoid holding your baby near your breasts until your milk begins to decrease and engorgement is relieved. Call your doctor or director medical for: ??? Fever more than 100.5 ??? Heavy bleeding that saturates a pad an hour ??? Clots larger than a plum ??? Increased abdominal pain, nausea, shaking chills ??? Breast with hot, hard, tender areas on the breast plus flu-like symptoms ??? depression occurs in a large percentage of women. We encourage you to contact your provider or a member of the nursing staff if you are feeling so overwhelmed that you are unable to care for yourself or your baby. Keep your follow up appointment. You may call the [facility] at any time for guidance or for answers to questions that come up prior to you follow up appointment. Your [facility] Provider can be reached during office hours at ??? Midwives ??? Obstetricians ??? [facility] Follow-up Clinic ??? AFTER OFFICE HOURS for the automatic line set up mechanic or director medical regional sales consultant documented in this encounter Medications at Time of Discharge Medication Sig Dispensed Refills Start Date End Date ibuprofen (ADVIL;MOTRIN) 600 mg Tablet Take 1 [...] 05/22/2015 04/09/2021 documented as of this encounter Progress Notes * Martita Win RN - 05/22/2015 12:36 PM EST Patient Name: Radha Alcala Patient Age: 29 y.o. Birthdate: 1985 Admit date: 05/21/2015 Attending Physician: [place] att. providers found Office of Care Management (OCM)/Clinical Absorption Plant Operator O: Reviewed in multidisciplinary obstetric rounds and with direct care RN. Reviewed patient's medical record. A: Support systems: In place. No discharge needs identified. Radha is a 29 y.o single delivered vaginally at term at [facility] on 05/20/15. Delivery was complicated by a 12+ minute shoulder dystocia and infant with hypoxic ischemic encephalopathy-transported to [facility] for coolingprotocol. Mom followed in maternal transport. is critically ill in the ICN. Radha lives with partner. He has two sons and she has two sons from prior relationships. This is their first baby girl. Radha was discharged prior to Corporate Officer having opportunity to meet with her. Health Cost coverage: [place] Medicaid/WIC Community Services: Grief/Loss resources offered by nursing staff. P: Pt desired discharge home today on 2nd pp day. in very poor condition in the ICN. No referrals placed. No breast pump ordered. Trinh Win/Corporate Officer Jaydoning Ginger, pager [phone] * Lluvia Lowry RN - 05/22/2015 12:27 PM EST Patient discharged to the [facility] suite. She remains in the ICN with family at bedside. IV removed and catheter intact. * Hailey Valdovinos MD - 05/22/2015 6:43 AM EST Vaginal Delivery Note This patient has no babies on file. Pt ID: Radha Alcala is a 29 y.o. who is now a admitted for care in proximity to transferred to the intensive care nursery following at 39+2 weeks gestation complicated by 12 minute shoulder dystocia, hemorrhage, and a 4th degree perineal laceration. Subjective: Complains of nothing. Pain is well controlled. She is tolerating diet well. Paulino stillin place--pt reports labial swelling has improved. Has ambulating to bathroom and felt stable. Pumping for infant in ICN. Hard to say how infant is doing. Spoke with child life yesterday about how tospeak with other children and round this helpful. ROS: Denies CHUN/N/V/CP/SOB Lochia: small Last Set of Vitals: Filed Vitals: 05/21/15 2117 BP: 120/75 Pulse: 111 Temp: 36.7 ??C (98.1 ??F) Resp: 18 Gen: Pleasant. Resting comfortably in wheelchair about to go to [facility]. NAD. Neuro: Alert and oriented. Cardiac: RRR. No murmurs, rubs, or gallops. Pulm: CTAB. No wheezes, rales, or rhonci. Abd: Soft. Non tender. Uterine Fundus: firm, non-tender and at umbilicus Extremities: No lower extremity edema. Significant Labs: Lab Results Component Value Date ABORH O Neg 05/21/2015 WBC 12.5* 05/21/2015 HCT 30.5* 05/21/2015 HGB 10.5* 05/21/2015 Immunization status: unknown Assessment & Plan Radha Alcala is a 29 y.o. who is now a admitted for care in proximity to infant transferred to the intensive care nursery following at 39+2 weeks gestation complicated by 12minute shoulder dystocia, hemorrhage, and a 4th degree perineal laceration. PPD#2 ?? Patient is doing well without problems and afebrile. ??? nutrition: pumping for in ICN ??? Contraception: will discuss ??? care: Routine 6 week post visit, 2 week visit for depression and routine ??? Dispo: Anticipate discharge tomorrow, PPD#3, as continues to need care at inpatient level of care Assessment Management of Additional Medical Issues ?? Hypothyroidism: Continue levothyroxine at 125mcg daily (pre- alternated 125 and 112, during 150mcg) LLUVIA DURANT MD 05/22/2015 This patient was seen and discussed on rounds. Addendum I have seen and examined this pt, and discussed exam, assessment and plan with Dr Durant; I agree in general with her note above. In summary, pt is PPD2 from complicated by 12 min shoulder dystocia, 4th degree lac, PPH and transfer to [facility] and is OK physically; gravely ill. Ambulating without difficulty, has voided since Paulino removed, matty PO well, adequate analgesia. Pumping. Some dependent edema, FF NT and nl lochia. Contraception not discussed as patient in NICU as she does not want to leave 's bedside, PP f/u recommended in 2 and 6 wks. D/C instrucs/bowel regimen suggestions given in relation to her perineal trauma. Requests meds to [facility] pharmacy. HAILEY VALDOVINOS MD * Ivanna Serrano, RN - 05/21/2015 12:12 PM EST 1215- Pt with VSS, fundus on return from ICN was firm with massage, off to right. Paulino straightened out, drainage improved. 800ccs emptied at 1200. Neonatology to see to discuss baby's status and plan of care. Pt and spouse very tearful and upset following consult. Washer Repairman sat with parents, as theyverbalized feelings. Mother said I can't give up on her yet. Motrin given for cramping. * Laina Cuello RN - 05/21/2015 7:08 AM EST 0700: Patient arrived to 7 via ambulance stretcher. Patient c/o perineal pain with movement. 0705: OOB with two assist to wheelchair, to ICN to see baby. Fundus firm 1 above umbilicus, flow small amount of rubra. documented in this encounter H&P Notes * Taina Aiken MD - 05/21/2015 11:17 AM EST Obstetrical Term Admission Note Radha Alcala is a 29 y.o. s/p at 39+2 weeks gestation being admitted for care in proximity to transferred to the intensive care nursery. HPI: Radha underwent an IOL for macrosomia at 39+2 weeks gestation. She received one dose of misoprostol followed by SROM and progressed spontaneously thereafter. She underwent a spontaneous vaginal delivery complicated by a 12 minute shoulder dystocia, hemorrhage, and a 4th degree perineal laceration. She was given pitocin IM, pitocin IV, and two doses of IM methergine. Hgb 13.9 on admission prior to delivery. EBL estimated at 1000cc. Apgars of infant were 0/0/0, weight 13lb 5oz (6000g). The patient was coded and pronounced , then had a respiration and heartbeat, so resuscitation was resumed. The infant was then transferred to [facility] on the cooling protocol. The patient is appropriately devastated by the events of today. She reports that physically she is doing okay. Her bleeding is appropriate. She is very edematous from her delivery and sore. Review of Systems- Negative to complete review except as noted in the HPI. Active Hospital Problems Diagnosis ??? care following vaginal delivery Resolved Hospital Problems Diagnosis Date Resolved No resolved problems to display. There are no active non-hospital problems to display for this patient. Past Medical History Diagnosis Date ??? Hypothyroidism No past surgical history on file. OB History Para Term AB TAB SAB Ectopic Multiple Living 3 3 3 0 3 # Outc Date GA Lbr Moisés/2nd Wgt Sex Del Anes PTL Lv 1 Term 4.536 kg (10 lb) Vag-Spont 2 Term 3.884 kg (8 lb 9 oz) Vag-Spont 3 Term 05/2015 39w2d 6.036 kg (13 lb 4.9 oz) Vag-Spont Complications: Shoulder dystocia Comments: 12 minute shoulder dystocia, transferred from [place] to [facility] No prescriptions prior to admission Allergies not on file No family history on file. Social History Occupational History ??? Not on file. Social History Main Topics ??? Smoking status: Never Smoker ??? Smokeless tobacco: Not on file ??? Alcohol Use: No ??? Drug Use: No ??? Sexual Activity: Not Currently Immunization History There is no immunization history on file for this patient. Last Set of Vitals: BP 135/82 mmHg Pulse 106 Temp(Src) 36.4 ??C (97.5 ??F) (Oral) Resp 18 SpO2 100% ? Unknown Physical Exam Gen: AAO, NAD Cardio: nl rhythm, S1, S2, no M/C/R/G Pulm: CTA BL, no W/C/R Abd: soft, NT, ND, fundus firm and 1cm above umbilicus Ext: warm, well-perfused, no JANET or calf tenderness Neuro: grossly intact : edematous labia with paulino in place draining blood stained urine Lab Results Component Value Date ABORH O Neg 05/21/2015 HCT 30.5* 05/21/2015 HGB 10.5* 05/21/2015 MCV 90.8 05/21/2015 Assessment & Plan Radha Alcala is a 29 y.o. s/p at 39+2 weeks gestation being admitted for care in proximity to transferred to the intensive care nursery. -Rh negative: Rhogam now -pain management with tylenol, ibuprofen, ice -will discuss feeding infant when appropriate -contraception: Will discuss when appropriate -anticipate discharge PPD#2 This patient was seen the Dr. Aiken, Attending LLUVIA DURANT MD PGY3 05/21/2015 Attending note I saw and evaluated the patient with Dr Durant (resident physician.) I have reviewed the resident's history during the visit and I agree with the details as written. My physical examination confirmsand/or revises the resident's findings. The assessment and plan were formulated in discussion with me at the time of the visit and I agree with them as documented. Taina Aiken MD documented in this encounter Miscellaneous Notes * Plan of Care - Candice Oliver RN - 05/22/2015 6:17 AM EST Problem: Following Vaginal Delivery (Adult, Obstetrics) Goal: Signs and symptoms of listed potential problems will be absent or manageable (reference ( Following Vaginal Delivery (Adult, Obstetrics)) CPG) Outcome: Ongoing (Interventions Implemented as Appropriate) 05/21/151848 Following Vaginal Delivery Problems Assessed ( Following Vaginal Delivery) all Problems Present ( Following Vaginal Delivery) acute pain OUTCOME EVALUATION NOTE: OUTCOME SUMMARY: Ongoing support to mother of infant with critically ill infant. Pain control and activity encouraged. Emotional support provided. PLAN MOVING FORWARD: Continue to support independence and offer emotional support. INDIVIDUALIZED FALL PREVENTION: Assistance: Ongoing Supervision: RN Surveillance: Purposeful rounding CPG OUTCOME EVALUATION: * Plan of Care - Ivanna Serrano RN - 05/21/2015 7:20 PM EST Problem: Following Vaginal Delivery (Adult, Obstetrics) Goal: Signs and symptoms of listed potential problems will be absent or manageable (reference ( Following Vaginal Delivery (Adult, Obstetrics)) CPG) Outcome: Ongoing (Interventions Implemented as Appropriate) 05/21/151848 Following Vaginal Delivery Problems Assessed ( Following Vaginal Delivery) all Problems Present ( Following Vaginal Delivery) acute pain * Consult Note - Elizabeth Finch CLS - 05/21/2015 3:49 PM EST Child Life Note: Child life services consulted for psychosocial support of the patient's children. This scientific writer met with Radha and her , Harman, to introduce the child life role and service (guidance and support for sharing information with children; support for children's coping and understanding; anticipatory guidance and preparation for visits to the hospital). Radha and Harman have a blended family, this daughter is their first child together. Children are Juan, age 9; Yuriy, age 8; Able, age 5; and Nikhil, age 5. Parents described children's baselinetemperament and coping - sharing one child to be more emotional and another to be more internal in his coping. Parents shared positive outlets for coping and support of the children. In conversation, the following was discussed: -The children were very connected to aRdha and the baby throughout her and very much looked forward to meeting their sister. They shared a weekly routine of looking at how the baby was developing through an no on Radha's phone. -Guidance in language for sharing information about their current experience (focusing on what is known: your sister had a hard time being born she is very sick and needs a lot of help the doctors and nurses are doing everything they can to care for her). With the addition of sharing new information as it comes. -Comfort in giving a space for children to ask questions and share what they are wondering about (Encouraging parents and grandparents to answer questions the children ask using basic words of honestinformation.) -The potential benefits of visiting at the bedside (having the opportunity to meet their sister; seeing for themselves how sick their sister is; seeing for themselves the steps that have been taken to try to help their sister...). A proposed plan was made for the siblings to visit their sister on Tuesday (timing based on what parents perceived most appropriate for the siblings to plan a visit together). This scientific writer plans to follow up with Radha and her on to check in for follow up to this plan. ICN staff have contact information if changes arise and a visit to the bedside is necessary to plan before Tuesday. Child life services will continue to follow. JUAN ANTONIO Rose Certified Broke Beater Operator documented in this encounter Plan of Treatment Not on file documented as of this encounter Procedures Procedure Name Priority Date/Time Associated Diagnosis Comments LAB SCAN 05/23/2015 12:00 AM EST PREPARE RH IMMUNE GLOBULIN Routine 05/22/2015 9:55 AM EST HEMOGRAM Routine 05/21/2015 3:40 PM EST DIFFERENTIAL, AUTOMATED Routine 05/21/2015 3:40 PM EST CELL SCREEN Routine 05/21/2015 3:4 0 PM EST ABO/RH TYPING Routine 05/21/2015 3:40 PM EST CBC (WITH DIFF) Routine 05/21/2015 3:40 PM EST ANTIBODY SCREEN Routine 05/21/2015 3:40 PM EST documented in this encounter Results * SCAN DOC: LAB (05/23/2015 12:00 AM EST) Scanning Provider MEDIA MGR SCAN EXT O RDR/RSLT * Prepare Rh Immune Globulin (05/22/2015 9:55 AM EST) Dispensed? Yes CERNER MILLENNIUM Blood specimen (specimen) 05/22/2015 9:55 AM EST 05/22/2015 9:52 AM EST Heaven Herrera MD BLOOD BANK PRODUCT O RDERABLES HIRAL BURGERENNIUM * (ABNORMAL) Differential, Automated (05/21/2015 3:40 PM EST) Neutrophil % 77.4 % CERNER MILLENNIUM Neutrophil Absolute 9.67(H) 1.50 - 6.30 x10(3)/mc L CERNER MILLENNIUM Lymph % 13.4 % CERNER MILLENNIUM Lymphocytes Abs 1.7 1.0 - 3.6 x10(3)/mc L CERNER MILLENNIUM Monocyte % 8.7 % CERNER MILLENNIUM Monocyte Abs 1.1(H) 0.2 - 1.0 x10(3)/mc L CERNER MILLENNIUM Eos % 0.1 % CERNER MILLENNIUM Eosinophils Abs 0.0 0.0 - 0.5 x10(3)/mc L CERNER MILLENNIUM Basophil % 0.1 % CERNER MILLENNIUM Baso Absolute 0.0 0.0 - 0.2 x10(3)/mc L CERNER MILLENNIUM Immature Gran % 0.30 % CERN ER MILLENNIUM Comment: Immature granulocytes(IG's)percentage and absolute count will include metamyelocytes, myelocytes, and promyelocytes. Blood smears from CBCs yielding IG's will be scanned manually for concordance. If this scan disagrees with the automated IG or if promyelocytes are noted, a manual differential will be performed. Immature Gran Absolute 0.04 0.00 - 0.05 x10(3)/mc L CERNER MILLENNIUM Blood specimen (specimen) 05/21/2015 3:40 PM EST 05/21/2015 4:03 PM EST Narrative Resulting Agency Comment Spec In Lab Heaven Herrera MD HEMATOLOGY ORDERABLE S CERNER MILLENNIUM * (ABNORMAL) Hemogram (05/21/2015 3:40 PM EST) White Blood Cell 12.5(H) 4.0 - 10.0 x10(3)/mc L CERNER MILLENNIUM Red Blood Cell 3.36(L) 3.93 - 5.22 x10(6)/mc L CERNER MILLENNIUM Hemoglobin 10.5(L) 11.2 - 15.7 gm/dL CERNER MILLENNIUM Hematocrit 30.5(L) 34.0 - 45.0 % CERNER MILLENNIUM Mean Cell Volume 90.8 79.0 - 94.0 fL CERNER MILLENNIUM Mean Cell Hemoglobin 31.3 26.6 - 32.2 pg CERNER MILLENNIUM Mean Cell Hemoglobin Concentration 34.4 32.0 - 36.5 gm/dL CERNER MILLENNIUM Platelet 118(L) 145 - 370 x10(3)/mc L CERNER MILLENNIUM RDW Standard Deviation 47.8(H) 35.0 - 46.0 fL CERNER MILLENNIUM RDW coefficient of variation 14.5(H) 10.9 - 14.4 % CERNER MILLENNIUM Mean Platelet Volume 12.6(H) 9.0 - 12.0 fL CERNER MILLENNIUM Blood specimen (specimen) 05/21/2015 3:40 PM EST 05/21/2015 4:03 PM EST Narrative Resulting Agency Comment Spec In Lab Heaven Herrera MD HEMATOLOGY ORDERABLE S Performing Organization Address City/State/[facility] Co de Phone Number [facility] JENNYFER[facility] * Antibody screen (05/21/2015 3:40 PM EST) Ab Screen Interp Negative [facility] JENNYFERENNIUM Expires at [id number] on: 05/24/2015 [facility] MILLENNIUM Blood specimen (specimen) Venous Draw / Unknown 05/21/2015 3:40 PM EST 05/21/2015 3:53 PM EST Narrative Resulting Agency Comment Spec In Lab Heaven Herrera MD BLOOD BANK LAB ORDER SALEEM Performing Organization Address [facility] de Phone Number [facility] POLOIUM * ABO/Rh Typing (05/21/2015 3:40 PM EST) ABORH Type O Neg [facility] JENNYFERENNIUM Blood specimen (specimen) Venous Draw / Unknown 05/21/2015 3:40 PM EST 05/21/2015 3:53 PM EST Narrative Resulting Agency Comment Spec In Lab Heaven Herrera MD BLOOD BANK LAB ORDER SALEEM Performing Organization Address [facility] de Phone Number HIRAL BURGERENNIUM * Cell Screen (05/21/2015 3:40 PM EST) Hgb Screen Negative [facility] Blood specimen (specimen) 05/21/2015 3:40 PM EST 05/21/2015 3:53 PM EST Narrative Resulting Agency Comment Spec In Lab Heaven Herrera MD BLOOD BANK LAB ORDER SALEEM Performing Organization Address City/[facility] Co de Phone Number [facility] documented in this encounter Visit Diagnoses Diagnosis care following vaginal delivery Routine follow-up documented in this encounter Admitting Diagnoses Diagnosis care following vaginal delivery Routine follow-up documented in this encounter Administered Medications Inactive Administered Medications - up to 3 most recent administrations Medication Order MAR Action Action Date Dose Rate Site acetaminophen (TYLENOL) tablet 1,000 mg 1,000 mg, Oral, EVERY 6 HOURS PRN, Starting on Tue05/21/15 at 0817, Until Tasia 05/22/15 at 1429, Pain, - Moderate pain (pain scale 4-6). - Maximum dose of acetaminophen is 4000 mg from all sources in 24 hours., Recovery (Recovery-Hospital Unit), Routine Given 05/22/2015 4:08 AM EST 1,000 mg Given 05/21/2015 5:47 PM EST 1,000 mg Given 05/21/2015 9:36 AM EST 1,000 mg ibuprofen (ADVIL;MOTRIN) tablet 600 mg 600 mg, Oral, EVERY 6 HOURS PRN, Starting on Tue05/21/15 at 0817, Until Tasia 05/22/15 at 1429, Pain, - Do not give if receiving ketorolac. - Mild to moderate pain (pain scale 1-6) - Maximum dose of 3,200 mg from all sources in 24 hours., Recovery (Recovery-Hospital Unit), Routine Given 05/22/2015 10:00 AM EST 600 mg Given 05/22/2015 4:05 AM EST 600 mg Given 05/21/2015 7:17 PM EST 600 mg levothyroxine (SYNTHROID) tablet 125 mcg 125 mcg, Oral, EVERY MORNING, First dose on Tasia 05/22/15 at 0600, Until Discontinued, Routine Given 05/22/2015 8:22 AM EST 125 mcg oxyCODONE (ROXICODONE) immediate release tablet 10 mg 10 mg, Oral, EVERY 4 HOURS PRN, Starting on Tue05/21/15 at 2049, Until Tasia 05/22/15 at 1429, Pain, severe pain (7-10), May give an additional 5 mg in 30 minutes once if pain not relieved., Routine Given 05/22/2015 10:00 AM EST 10 mg Given 05/21/2015 9:17 PM EST 10 mg oxyCODONE (ROXICODONE) immediate release tablet 5 mg 5 mg, Oral, EVERY 4 HOURS PRN, Starting on Tue05/21/15 at 2049, Until Tasia 05/22/15 at 1429, Pain, mild to moderate pain (1-6), May give an additional 5 mg in 30 minutes once if pain not relieved., Routine Given 05/22/2015 4:09 AM EST 5 mg polyethylene glycol (MIRALAX) packet 17 g 17 g, Oral, DAILY, First dose on Tue05/21/15 at 1000, Until Discontinued, Routine Given 05/21/2015 2:30 PM EST 17 g senna-docusate (PERICOLACE) 8.6-50 mg per tablet 1 tablet 1 tablet, Oral, 2 TIMES DAILY, First dose on Tue05/21/15 at 0930, Until Discontinued, Routine Given 05/22/2015 8:22 AM EST 1 tablet Given 05/21/2015 9:37 AM EST 1 tablet documented in this encounter Active and Recently Administered Medications Times are shown in EST. Scheduled Medication Order 05/20/2015 05/21/2015 05/22/2015 levothyroxine (SYNTHROID) tablet 125 mcg 125 mcg, Oral, EVERY MORNING, First dose on Tue05/22/15 at 0600, Until Discontinued, Routine 0822 (Given - Provid er: Lluvia Lowry RN) polyethylene glycol (MIRALAX) packet 17 g 17 g, Oral, DAILY, First dose on Tue05/21/15 at 1000, Until Discontinued, Routine 1000 (Hold - Provider: Gillian Jones RN - Reason: Patient not available)1430 (Given - Provider: Ivanna Serrano RN) 0900 (Not Given - Provider: Lluvia Lowry RN - Reason: Medication not available) senna-docusate (PERICOLACE) 8.6-50 mg per tablet 1 tablet 1 tablet, Oral, 2 TIMES DAILY, First dose on Tue05/21/15 at 0930, Until Discontinued, Routine 0937 (Given - Provider: Ivanna Serrano RN)2100 (Due) 0822 (Given - Provider: Lluvia Lowry RN) PRN Medication Order 05/20/2015 05/21/2015 05/22/2015 acetaminophen (TYLENOL) tablet 1,000 mg (CANCELED)(Linked Group 1) 1,000 mg, Oral, EVERY 6 HOURS PRN, Starting on Tue05/21/15 at 0817, Until Tue05/22/15 at 1429, Pain, - Moderate pain (pain scale 4-6). - Maximum dose of acetaminophen is 4000 mg from all sources in 24 hours., Recovery (Recovery-Hospital Unit), Routine 0936 (Given - Provider: Ivanna Serrano RN)1747 (Given - Provider: Ivanna Serrano RN) 0408 (Given - Provider: Candice Oliver RN) ibuprofen (ADVIL;MOTRIN) tablet 600 mg(Linked Group 2) 600 mg, Oral, EVERY 6 HOURS PRN, Starting on Tue05/21/15 at 0817, Until Tasia 05/22/15 at 1429, Pain, - Do not give if receiving ketorolac. - Mild to moderate pain (pain scale 1-6) - Maximum dose of 3,200 mg from all sources in 24 hours., Recovery (Recovery-Hospital Unit), Routine 1206 (Given - Provider: Ivanna Serrano RN)1917 (Given - Provider: Ivanna Serrano RN) 040 (Given - Provider: Candice Oliver RN)1000 (Given - Provider: Lluvia Lowry RN) oxyCODONE (ROXICODONE) immediate release tablet 10 mg (CANCELED)(Linked Group 3) 10 mg, Oral, EVERY 4 HOURS PRN, Starting on Tue05/21/15 at 204, Until Tasia 05/22/15 at 1429, Pain, severe pain (7-10), May give an additional 5 mg in 30 minutes once if pain not relieved., Routine 2116 (Given - Provider: Candice Oliver RN) 040 (See Alternative - Provider: Candice Oliver RN)1000 (Given - Provider: Lluvia Lowry RN) oxyCODONE (ROXICODONE) immediate release tablet 5 mg(Linked Group 3) 5 mg, Oral, EVERY 4 HOURS PRN, Starting on Tue05/21/15 at 204, Until Tasia 05/22/15 at 1429, Pain, mild to moderate pain (1-6), May give an additional 5 mg in 30 minutes once if pain not relieved., Routine 2116 (See Alternative - Provider: Candice Oliver RN) 408 (Given - Provider: Candice Oliver RN)1000 (See Alternative - Provider: Lluvia Lowry RN) Linked Groups Order Group 1: acetaminophen (TYLENOL) tablet 650 mg (CANCELED) 650 mg, Oral, EVERY 4 HOURS PRN, Starting on Tue05/21/15 at 0817, Until Tasia 05/22/15 at 1429, Pain, - Mild pain (pain scale 1-3) - Maximum dose of acetaminophen is 4000 mg from all sources in 24 hours., Recovery (Recovery-Hospital Unit), Routine Or acetaminophen (TYLENOL) tablet 1,000 mg (CANCELED)Jump to med 1,000 mg, Oral, EVERY 6 HOURS PRN, Starting on Tue05/21/15 at 0817, Until Tasia 05/22/15 at 1429, Pain, - Moderate pain (pain scale 4-6). - Maximum dose of acetaminophen is 4000 mg from all sources in 24 hours., Recovery (Recovery- Hospital Unit), Routine Group 2: ibuprofen (ADVIL;MOTRIN) tablet 600 mgJump to med 600 mg, Oral, EVERY 6 HOURS PRN, Starting on Tue05/21/15 at 0817, Until Tasia 05/22/15 at 1429, Pain, - Do not give if receiving ketorolac. - Mild to moderate pain (pain scale 1-6) - Maximum dose of 3,200 mg from all sources in 24 hours., Recovery (Recovery-Hospital Unit), Routine Or ibuprofen (ADVIL;MOTRIN) tablet 800 mg (CANCELED) 800 mg, Oral, EVERY 8 HOURS PRN, Starting on Tue05/21/15 at 0817, Until Tasia 05/22/15 at 1429, Pain, - Do not give if receiving ketorolac. - Severe pain (pain scale 7-10). - Maximum dose of 3,200 mg from all sources in 24 hours., Recovery (Recovery- Hospital Unit), Routine Group 3: oxyCODONE (ROXICODONE) immediate release tablet 5 mgJump to med 5 mg, Oral, EVERY 4 HOURS PRN, Starting on Tue05/21/15 at 2049, Until Tasia 12 at 1429, Pain, mild to moderate pain (1-6), May give an additional 5 mg in 30 minutes once if pain not relieved., Routine Or oxyCODONE (ROXICODONE) immediate release tablet 10 mg (CANCELED)Jump to med 10 mg, Oral, EVERY 4 HOURS PRN, Starting on Tue05/21/15 at 2049, Until Tasai 05/22/15 at 1429, Pain, severe pain (7-10), May give an additional 5 mg in 30 minutes once if pain not relieved., Routine documented in this encounter
--- OUTSIDE RECORDS SUMMARY | 2024-06-25 13:30 | XMS_ITS | Encounter Summary ---
Author Organization [facility] [place] [address] Care Team Providers Care Railway Traction Line Worker Name Role Phone Chelsey Preciado Primary Care Provider [phone]- [phone] Reason for Visit * Auth/Cert Specialty Diagnoses / Procedures Referred By Dayna mendoza Referred To Contact Diagnoses macromastia Procedures PRO REDUCTION OF LARGE BREAST REDUCTION MAMMOPLASTY, MALENA (WRVU 16.03) MODIFIER DOYLE Referral ID Status Reason Start Date Expiration Date Visits Re quested Visits Authorized [id number] 1 1 Encounter Details Date Type Department Care Team (Late st Contact Info) Description 2021 3:21 PM EST - 2021 6:27 PM EST Surgery [place] [address] Isaac Crane MD [facility] [place] [address] REDUCTION MAMMOPLASTY, MALENA (WRVU 16.03) Social History Tobacco Use Types Packs/Day Years [...] Sign Reading Time Taken Comments Blood Pressure 144/96 2021 6:15 PM EST Pulse 77 2021 5:19 PM EST Temperature 36 ??C (96.8 ??F) 2021 5:19 PM EST Respiratory Rate 16 2021 6:15 PM EST Oxygen Saturation 92% 2021 6:15 PM EST Inhaled Oxygen Concentration - - [...] good night sleep. Pain (short term and nursing home) ?? With any surgery there is some discomfort or pain. You should take ibuprofen 48 hours after yoursurgery. We will prescribe narcotic pain medication in case you require additional pain medication.Take as prescribed and only as needed. ?? We recommend taking an togq-lzd-Mrtlsky stool softener, such as Colace (docusate) or [...] scheduling, please contact our administrative offices at [phone] ?? For clinical questions, please call our nurses at [phone] ?? Both offices are open Tuesday thru Tuesday 8a - 5p. With emergencies after hours, call the hospital stranding machine operator at [phone] and ask for the Plastic Surgery Resident contract driver. Future Appointments Date Time Provider Department Center 06/10/2021 10:00 AM Risa Fong APRN [facility] PLAS 4M [facility] documented in this encounter Medications at Time [...] Comments) Pt reports she had jaundice following tylenolMD told her to avoid further acetaminophen. Review [...] Alicia Brandon MD Plastic Surgery Resident P# [id number] Attending: Patient was seen and examined in [...] Operative Note Patient Name: Radha Veras : [id number] MR#: [id number] Case Date: 2021 Surgeon: Surgeon(s) and Role: [...] PATHOLOGY Left bReast Reduction Tissue: 515 g 80357 Macromastia Left Breast Reduction Tissue: 515 g excision 2021 4:53 PM Time specimen removed from patient: 4:51 PM Number of tissue samples (in container) 1 SPECIMEN TO PATHOLOGY Right Breast Reduction Tissue: 425 g 27336 Macromastia Right BReast Reduction Tissue: 425 g [...] Provider Department Center 06/10/2021 10:00 AM Risa Fong, SCALE MECHANIC [facility] PLAS 4M [facility] * Op Note - Isaac Crane MD - 2021 3:40 PM EST [facility] Operative Note Patient Name: Radha Veras : [id number] MR#: [id number] Case Date: 2021 Surgeon: Surgeon(s) and Role: [...] PATHOLOGY Left bReast Reduction Tissue: 515 g 11477 Macromastia Left Breast Reduction Tissue: 515 g excision 2021 4:53 PM Time specimen removed from patient: 4:51 PM Number of tissue samples (in container) 1 SPECIMEN TO PATHOLOGY Right Breast Reduction Tissue: 425 g 38916 Macromastia Right BReast Reduction Tissue: 425 g [...] Report (2021 4:53 PM EST) Final Diagnosis [id number] ? Location: [facility]; [facility]; The signing pathologist has (i) examined the relevant preparation(s) for the specimen(s) and (ii) rendered or confirmed the diagnosis(es). . ?Surgical Pathology DIAGNOSIS A - Left breast, reduction mammoplasty: ??- Benign breast tissue with focal apocrine metaplasia B - Right ??breast, reduction mammoplasty: ??- Benign breast tissue Electronically signed by: ?Papo LACKEY, Khurram Hong Verified: ??06/16/2021 11:13 ??Pathologist Performed at: ??-[facility] Dept. of Pathology, [place], [place] SPECIMEN(S) SUBMITTED A - Left breast B - Right ??breast CLINICAL INFORMATION Macromastia SPECIMEN PROCESSING A - Labeled/Fixative: Left breast reduction tissue: 515 g, fresh. Quantity/Size/Anuj ght: Multiple, 22.5 x 15 x 4.2 cm, 514 g. Tissue Description: Fibrofatty breast tissue. Skin: Unremarkable. Sectioning: Adipose and dense, [place]-white fibrous tissue. Sections/Processi ng: Multimedia Producer sections in 3 cassettes labeled A1-A3. B - Labeled/Fixative: Right breast reduction tissue 425 g, fresh. Quantity/Size/Anuj ght: Multiple, 20.7 x 12.3 x 3.5 cm, 440 g. Tissue Description: Fibrofatty breast tissue. Skin: Unremarkable. Sectioning: Adipose and dense, [place]-white fibrous tissue. Sections/Processi ng: Multimedia Producer sections in 3 cassettes labeled B1-B3. ??pps 06/16/2021 11:13 AM EST [facility] BREAST STRUCTURE / Unknown 2021 4:53 PM EST 2021 4:53 PM EST BREAST STRUCTURE / Unknown 2021 4:53 PM EST 2021 4:53 PM EST Isaac Crane MD PATHOLOGY/CYTOLOGY O RDYONATAN Performing Organization Address City/[facility]/ZIP Co de Phone Number [facility] [place] [address] * Specimen to Pathology (2021 4:53 PM EST) AP Specimen 2021 4:53 PM EST 2021 4:53 PM EST Narrative [facility] - 2021 4:53 PM EST Specimen requisition ordered. ??Separate Pathology report to follow Isaac Crane MD PATHOLOGY/CYTOLOGY O RDYONATAN Performing Organization Address [facility]/ZIP Co de Phone Number [facility] [place] [address] * Specimen to Pathology (2021 4:53 PM EST) AP Specimen 2021 4:53 PM EST 2021 4:53 PM EST Narrative [facility] - 2021 4:53 PM EST Specimen requisition ordered. ??Separate Pathology report to follow Isaac Crane MD PATHOLOGY/CYTOLOGY O RDERASHEELA [facility] [place] [address] documented in this encounter Visit Diagnoses Not [...] Minutes, Indication for (Active or Suspected): Prophylaxis EPINEPHrine (Adrenalin) (1 mg/mL) injection ONCE PRN, Starting on Tue06/09/21 at 1549, Until Tue06/09/21 at 2219, Intra-Operative (Intra-Procedure), Routine Given 2021 3:49 PM EST 1 mg 19- Surgical Site HYDROmorphone (Dilaudid) (0.2 mg/1 mL) injection syringe [...] Given 2021 5:41 PM EST 0.4 mg lidocaine (Xylocaine) 1% (10 mg/mL) injection ONCE PRN, Starting on Tue06/09/21 at 1551, Until Tue06/09/21 at 2219, Intra-Operative (Intra-Procedure), Routine Given 2021 3:51 PM EST 50 mLs 19- Surgical Site ondansetron (pf) (Zofran) (2 mg/mL) injection 4 mg 4 mg, Intravenous, EVERY 30 MIN PRN, 2 doses, Starting on Tue06/09/21 at 1738, Until Tue06/09/21 at 2014, Nausea, Maximum total dose of 8 mg (including OR administration). If multiple antiemetics ordered, use ondansetron first and if ineffective use prochlorperazine second and if ineffective use promethazine, PACU Recovery Given 2021 8:08 PM EST 4 mg traMADoL (Ultram) tablet [...] Routine 1741 (Given - Provid er: Mala J Erik, RN)1800 (Given - Provider: Mala Valencia RN) [...] Routine documented in this encounter Care Teams Railway Traction Line Worker Relationship Specialty Start Date End Date Chelsey Preciado PA [address] [place] [address] PCP - General Family Medicine 02/08/21 documented as of this encounter
--- OUTSIDE RECORDS SUMMARY | 2024-06-25 13:30 | XMS_ITS | Encounter Summary ---
[place] [address] Care Team Providers Care Retail Route Supervisor Name Role Phone Chelsey Preciado Primary Care Provider [phone]- [phone] Encounter Details Date Type Department Care Team (Late st Contact Info) Description 02/10/2021 Telephone [place] [id number] Radha Briggs Social History Tobacco Use Types [...] on filedocumented in this encounter Care Teams Retail Route Supervisor Relationship Specialty Start Date End Date Chelsey Preciado PA [address] [place] [address] PCP - General Family Medicine 02/08/21 documented as of this encounter
--- OUTSIDE RECORDS SUMMARY | 2024-06-25 13:30 | XMS_ITS | Encounter Summary ---
Author Organization [facility] Address [address] [place] [address] Care Team Providers Care Telecommunications Officer Name Role Phone Toll, Yan LACKEY Unavailable Unavailable Unknown, Provider Primary Care Provider Chelsey Krause PA-C Primary Care Provider + Encounter Details Date Type Department Care Team (Late st Contact Info) Description 12/11/2019 Lab Requisition [facility] Pathology & Laboratory Medicine - [address] [address] Danii Mo, [address] [place] [address] Encounter for other general examination Social History Tobacco Use Types Packs/Day Years [...] Procedure Name Priority Date/Time Associated Diagnosis Comments PAP TEST Today 12/10/2019 8:30 EDT Encounter for other general examination HPV DNA DETECTION WITH GENOTYPING, PCR Today 12/10/2019 8:30 EDT Encounter for other general examination documented in this encounter Results * HUMAN PAPILLOMAVIRUS (HPV) DETECTION-HIGH RISK TYPES (12/10/2019 8:30 EDT) HPV other High Risk types, PCR Negative Negative 12/18/2019 20:30 EDT [facility] Comment:No E6 or E7 mRNA is detected from HPV types 16,18,31,33,35,39,45,51,52,56,58,59,66, and 68 by stamp mounter mediated amplification. Papanicolaou smear specimen (specimen) CERVIX UTERI STRUCTURE / Unknown 12/10/2019 8:30 EDT 12/17/2019 13:55 EDT Danii Sai MitchellChepe COAL CUTTING MACHINE OPERATOR MICROBIOLOGY - GENERAL ORDER SALEEM Final Result [facility] [address] [place] [address] * PAP TEST (12/10/2019 8:30 EDT) Specimens A. Cervix and/or Endocervix , ThinPrep Imaging System with Manual Evaluation 12/18/2019 20:30 [facility] Specimen Adequacy Satisfactory for Evaluation - transformation zone component present 12/18/2019 20:30 [facility] General Categorization Negative for intraepithelial lesion or malignancy 12/18/2019 20:30 [facility] Attestation . 12/18/2019 20:30 [facility] at 2030 Clinical History NONE 12/18/19 20 20:30 T [facility] HPV The result for the Human Papillomavirus (HPV) Detection-High Risk Types is Negative. No E6 or E7 mRNA is detected from HPV types 16,18,31,33,35,39 ,45,51,52,56,58,5 9,66, and 68 by stamp mounter mediated amplification.Maliha ting was performed on specimen [id number] and was resulted on 12/18/2019 194 EDT by OLIVIER, LAB INSTRUMENT RESULTS IN 12/18/2019 20:30 T [facility] Scanned Images 12/18/2019 20:30 T [facility] Papanicolaou smear specimen (specimen) CERVIX UTERI STRUCTURE / Unknown 12/10/2019 8:30 EDT 12/11/2019 14:19 EDT us Danii Mo COAL CUTTING MACHINE OPERATOR PATHOLOGY ORDERABLES Final R esult [facility] [address] [place] [address] documented in this encounter Visit Diagnoses Diagnosis Encounter for other general examination documented in this encounter Care Teams Telecommunications Officer Relationship Specialty Start Date End Date Unknown, MD Mikaela PCP - General 08/24/17 09/09/21 Chelsey Preciado PA-C [address] [place] [phone] PCP - General 09/10/21 Yan Calderon MD 05/03/16 documented as of this encounter
--- OUTSIDE RECORDS SUMMARY | 2024-06-25 13:30 | XMS_ITS | Encounter Summary ---
Author Organization [facility] Address [address] [place] [address] Care Team Providers Care Serging Machine Operator Name Role Phone Yumiko, Yan LACKEY Unavailable Unavailable Chelsey Preciado PA-C Primary Care Provider + Encounter Details Date Type Department Care Team (Late st Contact Info) Description 09/29/2021 Lab Requisition [facility] Pathology & Laboratory Medicine - [address] [address] Alisha Flores, DO [address] [place], [place] [id number] Encounter for other general examination Social History [...] Date/Time Associated Diagnosis Comments SURGICAL PATHOLOGY Today 09/29/2021 9: 22 EDT Encounter for other general examination documented in this encounter Results * SURGICAL PATHOLOGY (09/29/2021 9:22 EDT) Note to Patient The following pathology results have been interpreted by your pathologist and may be available to you before your health provider has had the opportunity to review them. Please allow time for your provider to receive these results and explore management options, if applicable. 10/02/2021 11:15 [facility] Final Diagnosis A. GALLBLADDER, CHOLECYSTECTOMY: - Cholelithiasis (gross only). - Gallbladder mucosa with focal intestinal metaplasia. - Negative for dysplasia. 10/02/2021 11:15 [facility] Attestation There was significant resident/fellow involvement in the diagnostic evaluation of this case. By the signature below, the attending physician certifies that they have personally conducted a gross and/or microscopic examination of the described specimens and rendered or confirmed the above diagnosis. 10/02/2021 11:15 [facility] at 1115 Clinical History Gallstones 10/02/2021 11:15 [facility] Gross Description A. Received in formalin labelled with proper patient identification (initials N, J) and gallbladder is an intact gallbladder with an attached segment of cystic duct (a 0.4 x 3.5 x 2.9 cm). A cystic duct lymph node is/is not present. The serosa is pale green. The mucosa is velvety yellow green and the wall is 0.1 cm in thickness. The cystic duct lumen is occluded and measures 0.4 cm in diameter. The cystic duct margin is inked blue. There are 3 brown green smooth choleliths ranging from 1.2-1.7 cm in greatest dimension. Two hobbies and crafts sales representative sections and the en face cystic duct margin are submitted in A1. Brynn Benitez MD 09/30/2021 14:39 10/02/2021 11:15 [facility] Resident/Gonzales w: Brynn Benitez MD 10/02/2021 11:15 [facility] Performing Lab [facility] 10/02/2021 11:15 [facility] Scanned Images 10/02/2021 11:15 [facility] Tissue ENTIRE GALLBLADDER / Unknown 09/29/2021 9:22 EDT 09/29/2021 17:21 EDT us Alisha Flores DO PATHOLOGY ORDERABLES Final Re sult [facility] [address] [place] [address] documented in this encounter Visit Diagnoses Diagnosis Encounter for other general examination documented in this encounter Care Teams Serging Machine Operator Relationship Specialty Start Date End Date Chelsey Preciado PA-C [address] [place] [phone] PCP - General 09/10/21 Yan Calderon MD 05/03/16 documented as of this encounter
--- OUTSIDE RECORDS SUMMARY | 2024-06-25 13:30 | XMS_ITS | Encounter Summary ---
Author Organization [facility] [place] [address] Care Team Providers Care Bookbinder Apprentice Name Role Phone None Primary Care Provider Unavailabl e Encounter Details Date Type Department Care Team (Late st Contact Info) Description 02/24/2017 External [place] [phone] Camille Ventura QUILL LAYER [facility] [place] [address] Social History Tobacco Use Types Packs/Day Years [...] LAB CBC CMP THYROID RESULTS PANEL Routine 02/18/2017 documented in this encounter Results * CBC / CMP / Thyroid External Results (02/18/2017) Sodium 139 Potassium 4.0 Chloride 103 Carbon Dioxide 26 Blood Urea Nitrogen 12 Creatinine 0.78 Est Glomerular Filtration Rate >60 Glucose 210 Calcium 9.2 Protein, Total 7.3 Albumin 4.0 Bilirubin, Total 0.7 Alkaline Phosphatase 67 Aspartate Aminotransferase 100 Alanine Aminotransferase 305 Historical Provider EXTERNAL LAB EM PINEDA documented in this encounter Visit Diagnoses Not on filedocumented in this encounter Care Teams Bookbinder Apprentice Relationship Specialty Start Date End Date None None PCP - General 12/21/16 02/07/21 documented as of this encounter
--- OUTSIDE RECORDS SUMMARY | 2024-06-25 13:30 | XMS_ITS | Encounter Summary ---
Author Organization [facility] [place] [address] Care Team Providers Care Welding Machine Operator Submerged Arc Name Role Phone None Primary Care Provider Unavailabl e Encounter Details Date Type Department Care Team (Late st Contact Info) Description 12/21/2016 [place] [phone] Heather Rodriguez MD Social History Tobacco Use Types Packs/Day Years Used Date Smoking Tobacco: Never Assessed Sex and Gender Information Value Date Recorded Sex Assigned at Female 04/08/2021 1:54 PM EDT Gender Identity Female 04/08/2021 1:54 PM EDT Sexual Orientation Straight 04/08/2021 1: 54 PM EDT documented as of this encounter Miscellaneous Notes * Telephone Encounter - Heather Rodriguez MD - 12/21/2016 10:23 PM EDT called via transfer center by Dr. Gomez, [facility] ED 31F w/ hypothyroidism, 7mo post ( c/b gestational DM) p/w abdominal discomfort and nausea for few days, 'minimally' tender on palpation of RUQ; afebrile; no tylenol use reported Labs: ast 900; alt 2300; ao 128; tb 6.3; wbc nl; hb 16; plts 179; RUQ U/S: +gallstones; gb normal; cbd 3mm; fatty liver; no italia dil; Discussed that choledocholithiasis or stone that was passed is possible as explanation for elevatedliver tests; however since ALT is >2000, liver tests and INR should be monitored closely; can consider MRCP to confirm biliary etiology before ERCP; can send liver workup - labs for hepatitis, AIH, cmv/ebv, utox, apap, duplex; ddx includes toxin, drug, viral or ischemia; documented in this encounter Plan of Treatment Not on file documented as of this encounter Visit Diagnoses Not on filedocumented in this encounter Care Teams Welding Machine Operator Submerged Arc Relationship Specialty Start Date End Date None None PCP - General 12/21/16 02/07/21 documented as of this encounter
--- OUTSIDE RECORDS SUMMARY | 2024-06-25 13:30 | XMS_ITS | Encounter Summary ---
[place] [address] Care Team Providers Care Intensive Care Nurse Name Role Phone None Primary Care Provider Unavailabl e Reason for Visit * Auth/Cert Specialty Diagnoses / Procedures Referred By Contac t Referred To Contact Diagnoses Transaminitis GALLSTONES Procedures EMERGENCY IPI Referral ID Status Reason Start Date Expiration Date Visits Re quested Visits Authorized [id number] 1 1 Encounter Details Date Type Department Care Team (Latest Contact Info) Description 12/22/2016 1:32 AM EDT - 12/22/2016 3:18 PM EDT Hospital Encounter [address] [place] [id number] Jose [place] [address] Transaminitis Discharge Disposition: Home Social History Tobacco Use Types Packs/Day Years Used Date Smoking Tobacco: Never Tobacco Cessation:Counseling Given: No Comments:n/a Alcohol Use Standard Drinks/Week Comments No [...] Sign Reading Time Taken Comments Blood Pressure 130/90 12/22/2016 9:40 AM EDT Pulse 77 12/22/2016 9:40 AM EDT Temperature 36.5 ??C (97.7 ??F) 12/22/2016 9:40 AM ED T Respiratory Rate 18 12/22/2016 9:40 AM EDT Oxygen Saturation 98% 12/22/2016 9:40 AM EDT Inhaled Oxygen Concentration - - Weight 105.5 kg (232 lb 9.6 oz) 12/22/2016 1:35 AM EDT Height 170.2 cm (5' 7) 12/22/2016 1:35 AM EDT Body Mass Index 36.43 12/22/2016 1:35 AM EDT documented in this encounter Discharge Summaries * Erika Moon MD - 12/22/2016 3:18 PM EDT Discharge Summary Patient Name: Radha Veras Patient Age: 31 y.o. Language: Bhutanese Race: White Ethnicity: Not nor Admit date: 12/22/2016 Discharge date and time: 12/22/16 in afternoon Attending Physician: Erika Moon MD Discharge Physician: Erika Moon MD Follow-up Recommendations for Providers: 1. Please complete laboratory studies including LFTs, total and direct bilirubin, and coagulation studies prior to seeing the patient. We expect LFTs to trend down from admission in two weeks. 2. Please follow up with pending laboratory studies from the hospital including PAM, AMA, ASMA, quantitative immunoglobulin, hepatitis A, hepatitis E IgG and IgM, CMV, EBV. 3. Please follow up with iron studies, as ferritin was elevated (>5000) and iron saturation was at the high end of normal (48%). Inpatient Provider Contact Information: For questions regarding this document or issues relating to this hospitalization on the Medical Service, please contact your inpatient physician through the [facility] . Issues afterhours and on weekends will be handled by the Hospitalist staff on-call. Discharge Diagnoses (Hospital Problems) and Secondary Diagnoses (Chronic Problems): Active Hospital Problems Diagnosis ??? Transaminitis Resolved Hospital Problems Diagnosis Date Resolved No resolved problems to display. There are no active non-hospital problems to display for this patient. Operations/Major Procedures: None History of Presentation: 31 yo female with hx of hypothyroidism here in transfer from [facility] for new onset of jaundice. She was in usual status of health until last Sunday 12/17. Then, she started to notice the color of her urine was dark. Soon after, she developed diffuse itchiness, nausea and dry heave. She also noted loosestool with [place] color. She denies fever, chill, abdominal pain, or dysuria. She does not have recent use of tylenol. She denies family or personal history of autoimmune disease. She denies recent sick contact or travel outside [facility]. She has IUD placed in Jun 2016. She does not have hx of STD. 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 She occasionally uses ETOH but does not abuse. She is 7 months post- and still at this time. Her baby was born with jaundice requiring phototherapy. ?? OSH lab Labs: ast 900; alt 2300; ao 128; tb 6.3; wbc nl; hb 16; plts 179; RUQ U/S: +gallstones; gb normal; cbd 3mm; fatty liver; no biliary dilation Hospital Course: #Transaminitis, likely secondary to viral hepatitis The patient presented with several days of malaise, loose light colored stool, dark urine, and jaundice. Upon admission to the hospital, she was found to have elevated liver function tests with ALT in the thousands at OSH. INR was normal, and concern for ischemia was low. Toxic causes seem unlikelyas she has no history of alcohol or drug abuse, no recent medications, and no excess use of acetaminophen. Her OSH ultrasound was not concerning for an obstructive process. Her common bile duct was found to be 3mm and no intrahepatic biliary dilation was seen. Suspicion for obstructive stone or biliary etiology was low. Our gastroenterology team saw the patient and agreed that obstructive etiology was unlikely. Therefore, we did not pursue ERCP or MRCP. We assessed for hepatitis B and C, both of which were negative. We also did iron studies, which showed an elevated ferritin and normal/high iron saturation of 48%. Acetaminophen level was not elevated. Hepatitis A and E are pending. PAM, AMA, ASMA, quantitiative immunoglobulin studies are pending. CMV and EBV are pending. We suspect this pr esentation was due to a viral hepatitis. The patient is scheduled to follow up with GI's liver clinic in two weeks for repeat liver function tests and to address these pending studies. No treatment is required at this time. Zofran prn was provided for nausea. Vital Signs at Discharge: BP: 130/90, Heart Rate: 77, Temp: 36.5 ??C (97.7 ??F), Resp: 18, BMI (Calculated): 36.5 Height: 170.2 cm (5' 7) (12/22/16134) Weight - Scale: (!) 105.5 kg (232 lb 9.6 oz) (12/22/16134) Functional and Cognitive Status: At baseline. Important Studies and Lab Data: Recent Labs 12/22/16314 WBC 4.6 HGB 14.3 HCT 41.8 PLATELET 145 NEUTROABS 2.50 Recent Labs 12/22/16314 NA 138 K 3.4* CL 99 CO2 24 BUN 8 CREATININE 0.69* GLUCOSE 187 Recent Labs 12/22/16314 CALCIUM 9.2 9.2 MAGNESIUM 0.87 PHOS 3.6 Recent Labs 12/22/16314 AST 778* ALT 1714* ALKPHOS 97 BILITOT 6.4* BILIDIR 5.0* No results for input(s): TROPONINT, CK in the last 168 hours. No results for input(s): PHART, EQX6GYH, PO2ART, OZE1XGM in the last 168 hours. Recent Labs 12/22/16314 INR 1.0 Ferritin 5630 (H) Iron 166 (H) TIBC 349 Iron Saturation 48 (H/normal) Hepatitis B surface ab quant: <3.5 Hepatitis B surface ab negative Hepatitis B surface ag negative Hepatitis C ab negative Ceruloplasmin 30.3 OSH image study U/S SHOWS GALL STONES WITH A FATTY LIVER, COMMON BILE DUCT MEASURES AT 3MM Pending Studies and Lab Data: PAM ASMA AMA Quantitative Immunoglobulin Hepatitis E IgG and IgM Hepatitis A CMV EBV Discharge Conditions/Prognosis: Hemodynamically and medically stable. Discharge to: Home Updated Allergies/ADRs: No Known Allergies Immunizations Given this Hospitalization: There is no immunization history on file for this patient. Discharge Medications: Your Medications New Medications Dose Details ondansetron 4 mg Tab Commonly known as: ZOFRAN Take 1 tablet by mouth every 8 hours as needed for Nausea. 4 mg Quantity: 20 tablet Refills: 0 Continued medications, unchanged Dose Details levothyroxine 137 mcg Tab Commonly known as: SYNTHROID Take 137 mcg by mouth daily. 137 mcg Refills: 0 Smoking Status at Discharge: History Smoking Status ??? Never Smoker Smokeless Tobacco ??? Not on file Comment: n/a Instructions Given to Patient at Discharge: Patient Instructions Instruction after leaving the hospital Why you were hospitalized: You were hospitalized for jaundice, malaise, dark urine, and light/loosestools. We were initially concerned that this was an obstructive process in your biliary tree/gallbladder. Your ultrasound findings did not support dilation of your common bile duct or stone formation in the biliary tree. Therefore, we did not perform an MRCP or ERCP. Your presentation was most consistent with a viral hepatitis. Hepatitis B and C were negative in the hospital. We tested for othertypes of hepatitis, but these studies are pending. You have an appointment with Gastroenterology int liver clinic to repeat liver function tests and discuss the results of the testing performed in the hospital that is still pending. We expect this viral hepatitis to resolve without medication. When you return for follow-up, your liver function tests will help us to gauge if this process has improved. Call your doctor or seek medical attention if you develop the following: Call your doctor or seek medical attention if you experience any alarming symptoms. This may include, but is not limited to, fever, chest pain, severe shortness of breath, nausea with vomiting, persistent decrease in your urinary output, severe pain, or any other concerning symptoms. Activity level: As tolerated. Diet: No new restrictions. Driving: Please do not drive if you feel lightheaded, dizzy, faint, or taking any opioids/narcotics(i.e oxycodone). It is advisable that you do not drive till you follow-up with your primary care physician. Shower/Bath: No new restrictions. Wound Care: N/A Home Oxygen therapy: N/A Patient Instructions: Changes in Your Medications: New Medications: Zofran 4 mg every 8 hours as needed for nausea Medication dose changes: none Stop these medications: none Follow-Up Appointments Tuesday at 10:45 AM with Chelsey Preciado PA-C at [address] [place] [address] Future Appointments Date Time Provider Department Center 01/04/2017 9:00 AM Camille Ventura APRN [facility] Your Inpatient Doctor(s) at [facility]: Jose Daniel Weir MD - Attending physician MD Ryan Mendez MD Elisabeth Cook, MD - Attending physician Your Primary Care Provider: Chelsey Preciado PA-C [address] [place] [address] For questions regarding this document or issues relating to this hospitalization on the Medical Service, please contact your inpatient physician through the [facility] . Issues afterhours and on weekends will be handled by the Hospitalist staff on-call. General Instructions None Future Appointments and Orders Future Appointments Provider Department Dept Phone 01/04/2017 9:00 AM Camille Ventura APRN [facility] [phone] Discharge References/Attachments None documented in this encounter Discharge Instructions * Patient Instructions* Ryan Rose MD - 12/22/2016 11:54 AM EDT Instruction after leaving the hospital Why you were hospitalized: You were hospitalized for jaundice, malaise, dark urine, and light/loosestools. We were initially concerned that this was an obstructive process in your biliary tree/gallbladder. Your ultrasound findings did not support dilation of your common bile duct or stone formation in the biliary tree. Therefore, we did not perform an MRCP or ERCP. Your presentation was most consistent with a viral hepatitis. Hepatitis B and C were negative in the hospital. We tested for othertypes of hepatitis, but these studies are pending. You have an appointment with Gastroenterology inthe liver clinic to repeat liver function tests and discuss the results of the testing performed in the hospital that is still pending. We expect this viral hepatitis to resolve without medication. When you return for follow-up, your liver function tests will help us to gauge if this process has improved. Call your doctor or seek medical attention if you develop the following: Call your doctor or seek medical attention if you experience any alarming symptoms. This may include, but is not limited to, fever, chest pain, severe shortness of breath, nausea with vomiting, persistent decrease in your urinary output, severe pain, or any other concerning symptoms. Activity level: As tolerated. Diet: No new restrictions. Driving: Please do not drive if you feel lightheaded, dizzy, faint, or taking any opioids/narcotics(i.e oxycodone). It is advisable that you do not drive till you follow-up with your primary care physician. Shower/Bath: No new restrictions. Wound Care: N/A Home Oxygen therapy: N/A Patient Instructions: Changes in Your Medications: New Medications: Zofran 4 mg every 8 hours as needed for nausea Medication dose changes: none Stop these medications: none Follow-Up Appointments Tuesday at 10:45 AM with Chelsey Preciado PA-C at [address] [place] [id number] Future Appointments Date Time Provider Department Center 01/04/2017 9:00 AM Camille Ventura APRN [facility] Your Inpatient Doctor(s) at [facility]: Jose Daniel Weir MD - Attending physician MD Ryan Mendez MD Elisabeth Cook, MD - Attending physician Your Primary Care Provider: Chelsey Preciado PA-C [address] [place] [id number] For questions regarding this document or issues relating to this hospitalization on the Medical Service, please contact your inpatient physician through the [facility] . Issues afterhours and on weekends will be handled by the Hospitalist staff on-call. documented in this encounter Medications at Time [...] as of this encounter Progress Notes * Erika Moon MD - 12/22/2016 3:18 PM EDT Hospital Medicine - Attending Day of Discharge Documentation Discharge diagnosis Active Hospital Problems Diagnosis ??? Transaminitis Resolved Hospital Problems Diagnosis Date Resolved No resolved problems to display. Secondary Issues There are no active non-hospital problems to display for this patient. I have personally seen and examined the patient and they are ready for discharge. I spent >30 minutes (Day of Discharge Code 24112) involved in the final examination of the patient, discussion of the hospital stay, instructions for continuing care to all relevant caregivers, and preparation of discharge records, prescriptions and referral forms. Plans ? Discharge to home ? Follow-up scheduled with GI ? Please see the Discharge Summary for complete details of any medication changes and additional plans. * Latoya Anne RN - 12/22/2016 3:11 PM EDT Patient discharged with [facility] in a private vehicles. Belongs accounted for. AVS given andreviewed. * Zakiya [place] RN - 12/22/2016 2:35 AM EDT Patient arrived to the unit at approximately 0130, Alert and oriented x4, Vital signs stable. MD notified of patient's arrival. Will continue to monitor. documented in this encounter H&P Notes * Erika Moon MD - 12/22/2016 2:13 AM EDT Inpatient Admission Note Patient Name: Radha Veras Service: Medicine Responsible Attending: Jose Daniel Weir MD Admission Date: 12/22/2016 1:32 AM Problem List: Active Hospital Problems Diagnosis ??? Transaminitis Resolved Hospital Problems Diagnosis Date Resolved No resolved problems to display. Patient Active Problem List Diagnosis Code ??? Transaminitis R74.0 CC: Jaundice HPI: 31 yo female with hx of hypothyroidism here in transfer from [facility] for new onset of jaundice. She was in usual status of health until last Sunday 12/17. Then, she started to notice the color of her urine was dark. Soon after, she developed diffuse itchiness, nausea and dry heave. She also noted loosestool with [place] color. She denies fever, chill, abdominal pain, or dysuria. She does not have recent use of tylenol. She denies family or personal history of autoimmune disease. She denies recent sick contact or travel outside [place] area. She has IUD placed in Jun 2016. She does not have hx of STD. 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 She occasionally uses ETOH but does abuse. OSH lab Labs: ast 900; alt 2300; ao 128; tb 6.3; wbc nl; hb 16; plts 179; RUQ U/S: +gallstones; gb normal; cbd 3mm; fatty liver; no italia dil; ROS (positives in bold): Gen: fevers, chills, rigors. Fatigue HEENT: rhinorrhea, head pain, or neck pain CV: No chest pain or shortness of breath Resp: No shortness of breath GI: Nausea and loose stool. , dysphagia, hematemesis, constipation, hematochezia : dysuria, increasing urinary frequency, flank pain MSK: myalgias, arthralgias, arthritis Extr: peripheral edema Endo: hot/cold intolerance, anorexia, recent weight loss, jaundice Derm: rashes, wounds, skin lesions, or pruritis. Jaundice. 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 Marital status: Spouse name: N/A ??? Number of children: N/A ??? Years of education: N/A Occupational History ??? Not on file. Social History Main Topics ??? Smoking status: Not on file ??? Smokeless tobacco: Not on file ??? Alcohol use Not on file ??? Drug use: Not on file ??? Sexual activity: Not on file Other Topics Concern ??? Not on file Social History Narrative Meds: Prescriptions Prior to Admission Medication Sig Dispense Refill Last Dose ??? levothyroxine (SYNTHROID) 137 mcg Tablet Take 137 mcg by mouth daily. Allergies: No Known Allergies PE: Vitals: Temp: 36.3 ?C (97.3 ?F) BP: 124/76 Heart Rate: 74 Resp: 20 SpO2: 98 % Gen: NAD, A&Ox3, NC/AT HEENT: PERRL, mmm, EOMI, Icteric sclera Neck: supple, no cervical LAD, no thyromegaly CV: Distant heart sound. RRR no m/r/g, normal S1&S2, no carotid bruits, no JVP, 2+ pedal pulsesbl Resp: CTA bl, no w/r/r, no dullness to percussion, no egophony, no tactile fremitus Chest/Back: symmetric diaphragmatic excursion, no CVA tenderness Abd: +bs, soft, NT/ND, no rebound or guarding, no hepatosplenomegaly appreciated Extr: wwp, no peripheral edema, no arthritis Skin: no lesions or rashes, no telangiectasias Neuro: CN II-XII grossly intact, 5/5 strength throughout, normal sensation bl Labs: Recent Results (from the past 24 hour(s)) Urinalysis with reflex Culture Result Value Ref Range Glucose UA Negative Negative mg/dL Protein UA Negative Negative mg/dL Bilirubin UA Small (A) Negative mg/dL Urobilinogen UA 2.0 (A) Normal mg/dL pH UA 5.0 5.0 - 8.0 Blood UA Small (A) Negative mg/dL Ketones UA 5 (A) Negative mg/dL Nitrite UA Negative Negative Leukocytes UA Negative Negative mcL Appearance UA Cloudy (A) Clear Spec Wood UA 1.012 1.002 - 1.030 Color UA Neela Yellow RBC UA 3 0 - 4 /HPF WBC UA 14 (H) 0 - 5 /HPF Bacteria UA Moderate (A) None /HPF Squam Epith UA 22 (H) <=4 /HPF Culture Reflexed Yes POCT Glucose Result Value Ref Range POC Glucose 160 65 - 199 mg/dL Hemogram Result Value Ref Range WBC 4.6 4.0 - 9.5 x10(3)/mcL RBC 4.67 4.00 - 5.21 x10(6)/mcL Hemoglobin 14.3 11.7 - 15.5 gm/dL Hematocrit 41.8 35.7 - 45.8 % MCV 89.5 82.6 - 94.4 fL MCH 30.6 27.1 - 32.0 pg MCHC 34.2 31.7 - 35.0 gm/dL Platelets 145 145 - 357 x10(3)/mcL RDWSD 42.8 37.0 - 46.0 fL RDWCV 13.0 11.5 - 14.1 % MPV 11.6 7.6 - 12.9 fL nRBC % Auto 0.0 % nRBC Abs Auto 0.000 0.000 - 0.000 x10(3)/mcL Differential, Automated Result Value Ref Range Neutrophils % 54.1 % Neutr Abs (ANC) 2.50 1.70 - 6.10 x10(3)/mcL Lymphocytes % 31.7 % Lymphocytes Abs 1.5 0.9 - 3.2 x10(3)/mcL Monocytes % 10.8 % Monocyte Abs 0.5 0.3 - 0.9 x10(3)/mcL Eosinophils % 2.4 % Eosinophils Abs 0.1 0.0 - 0.4 x10(3)/mcL Basophils % 0.6 % Basophils Abs 0.0 0.0 - 0.1 x10(3)/mcL Immature Gran % 0.40 % Carina Gran Abs 0.02 0.00 - 0.04 x10(3)/mcL Micro: Pending for hepatitis panel OSH image study U/S SHOWS GALL STONES WITH A FATTY LIVER, COMMON BILE DUCT MEASURES AT 3MM Assessment: 31 yo female with hx of hypothyroidism here in transfer from [facility] for new onset of jaundice. The etiology for her Jaundice and elevated liver injury test is unclear at this point. There has been a suspicion for possible choledocholithiasis. Subsequent imaging study revealing for narrow CBD (3mm) wit hout e/o stone and markedly elevated liver enzymes raised concern for other etiologies including thrombosis, overdose, drug effect, autoimmune, metabolic and viral etiologies. Currently pt is asymptomatic except for jaundice. VSS without pain. Will discuss case further with GI team. Plan: #New onset of jaundice with elevated liver injury test and bilirubin Unclear etiology. Stone/passed stone vs. Other etiologies as above. -Follow up viral studies including hepatitis, CMV, EBV. -Follow up with AMA, iron studies, ceruloplasmin. -Follow up with Duplex study -Decision to be made ERCP vs MRCP per GI team. -F/u UDS and APAP level. #Other Continue home levothyroxine # Prophy GI: Not indicated Bowel: RBOs DVT: Low risk # Housekeeping Diet: NPO Access: PIV # Dispo: Pending course Admit to [facility] P 4400. Will be covered by 3530 until AM. Code Status: FUll Bertin Espinoza MD PGY-3, Internal Medicine Team Pager [phone]. 12/22/2016 Attending Staff Admission Documentation I certify that the patient requires: [X] Observation Care I have examined the patient myself on 12/22/2016 and reviewed all labs and studies personally. Please see Dr. espinoza documentation for details of the patient history of presentation and data. I have discussed, reviewed and agree with the documented history with ROS, physical findings, labs/studies, assessment and plan of care. 31 yo transferred from an osh with elevated LFTs c/w hepatitis. We are sending a full hepatitis panel including A, E, and autoimmune causes. No evidence of gallstones or choledocholithiasis so further imaging is not necessary. Discussed with GI and will plan to continue workup on an outpt basis. D/c home today and f/u with GI in 2 weeks. Erika Moon MD documented in this encounter Miscellaneous Notes * Initial Assessments - Freida Rosario MSW - 12/22/2016 9:34 AM EDT Office of Care Management Initial Assessment KEYON Dong reviewed record and discussed patient with Care Team. Source of Information: Radha [place] Introduced self/reviewed role; services accepted. Reason for Hospitalization: Jaundice Past Medical History: Diagnosis Date ??? Hypothyroidism Hospitalizations Within the Past 30 Days: No. Anticipated Length Of Stay (If known): DC today. Current Decision-Making Capacity: Patient is alert and oriented X4. Patient is able to make her needs and decisions known. Advance Care Planning: No AD on file. Patient declined education and not interested in completing AD at this time. [employer] explain [place] surrogacy laws. If AD's have not been completed, patient's Harman ([phone]) would be surrogate decision maker per [place] surrogate decision making law. Current Coping/Education/Information Needs: WNL Current Functional Ability: Independent Functional Status Prior to Admission: Independent with ADLs/IADLs. Patient drives. Home Environment: Patient [place] a farm in a 2 story home with her and five kids. Patient;s youngest is few month old baby girl. There are 3 steps to get into home and 10-12 steps to get tobasement where patient does laundry. Social & Family Supports/Community Resources: Patient lives with a supportive and is raising 5 kids. Patient enjoys spending time outside playing with the kids or taking care of the animals on their farm. Patient's mother lives nearby and a great supportive mother/grandmother. Behavioral Health History: Patient reports having a good mood. Denies feelings of depression and anxiety. Substance Use/Abuse: None. Other Pertinent/Service Specific Information: None. Health/Prescription Coverage: Primary Insurance: MEDICAID [place] Secondary Insurance: None. Prescription Coverage: Yes [facility]erred [facility] Other: None Primary Care Provider: None None Patient/Caregiver Goals of Treatment: To return home to breastfeed baby girl Potential Needs for Transition of Care: Rehab/SNF: No Home Health: [facility] if needed DME: No. Dialysis: No. Community Resources: Family Transportation: Other: None Anticipated Barriers to Discharge/Special Considerations: None. Plan: Patient is eager to return home since is her baby girl. Patient was using [facility] after giving childbirth and would use again if needed. Patient is independent with ADLs/IADLs. Patient has a supportive and is a loving mom to five children. No needs were identified.Patient's hasn't left bedside and ready to take patient home when ready. MD team feels patient could DC this afternoon. A member of the Care Management team will continue to monitor progress, follow for continuity of care and assist with transition of care planning. KEYON Dong Pager: [phone] Consult Note - Nichelle Boswell MD - 12/22/2016 8:40 AM EDT Gastroenterology & Hepatology Inpatient Consultation Radha Veras 1985 [id number] PCP: None Date of Admission: 12/22/2016 ( Hospital Day 0 days ) Attg: Jose Daniel Weir MD Source: patient and records Reason for Consult: elevated liver tests History of Present Illness: Pt is 31F w/ h/o hypothyroidism, 7mo post p/w few days of malaise, loose stool, jaundice, c/s for elevated liver tests Pt reports no prior h/o liver related illness. No prior h/o hepatitis, no FH liver disease; no h/o jaundice and hepatitis. 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 Reports that she had somenausea, no vomiting, no blood in stool; no abd pain; no fevers at home; no sick contacts; Denies APAP use; no herbal or supplement use. 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 Has 5 kids; -pmhx: as above; -sh: no tob; no drug; no etoh; -fh: no fh liver disease FH / SH reviewed Review of Systems: 10 systems reviewed, remainder negative unless otherwise indicated in HPI Active Hospital Problem List Patient Active Problem List Diagnosis Code ??? Transaminitis R74.0 No past surgical history on file. Medications Scheduled Meds: ??? levothyroxine 137 mcg Oral Daily ??? sodium chloride 0.9 % 5 mL Intravenous BID Continuous Infusions: PRN Meds:.sodium chloride 0.9 %, lidocaine, ondansetron OR ondansetron Review of patient's allergies indicates no known allergies. Physical Examination Vitals: Last value Range last 24 hrs Temperature Temp: 36.4 ??C (97.5 ??F) Temp: [36.3 ??C (97.3 ??F)-36.4 ??C (97.5 ??F)] Heart Rate Heart Rate: 64 Heart Rate: [64-74] Blood Pressure BP: 122/78 BP: (122-124)/(76-78) Respiratory Rate Resp: 16 Resp: [16-20] SpO2 SpO2: 96 % SpO2: [96 %-98 %] No intake or output data in the 24 hours ending 12/22/16 0840 Wt Readings from Last 3 Encounters: 12/22/16 (!) 105.5 kg (232 lb 9.6 oz) Body mass index is 36.43 kg/(m^2). Vitals: 12/22/16 0621 BP: 122/78 Pulse: 64 Resp: 16 Temp: 36.4 ??C (97.5 ??F) Gen: well appearing, NAD Neuro: AAOx3; Heent: NC/AT, anicteric sclera CVS: RRR normal rate Lungs: CTAB anteriorly; Abd: soft, NT, ND, NABS Skin: no rash appreciated on forearms / LE Ext: no edema Labs: Reviewed in EMR. Recent pertinent labs include: Recent Labs 12/22/16314 WBC 4.6 HGB 14.3 HCT 41.8 PLATELET 145 NEUTROABS 2.50 Recent Labs 12/22/16314 NA 138 K 3.4* CL 99 CO2 24 BUN 8 CREATININE 0.69* Recent Labs 12/22/16314 CALCIUM 9.2 9.2 MAGNESIUM 0.87 PHOS 3.6 Recent Labs 12/22/16314 AST 778* ALT 1714* ALKPHOS 97 BILITOT 6.4* BILIDIR 5.0* Recent Labs 12/22/16 0315 INR 1.0 PT 14.0 PTT 32 Pertinent Endoscopic Procedures/Reports: Reviewed in eDH Pertinent Recent Imaging Reviewed in eDH Assessment: Radha Veras is a 31 y.o. female w/ h/o hypothyroidism, 7mo post p/w few days of malaise,loose stool, jaundice, c/s for elevated liver tests -suspect most likely viral illness; reassuring that ALT is downtrending and INR is normal; ddx includes ischemia or toxin, however she does not report history to suggest this -her u/s did not indicate an obstructive process; cbd at 3mm and no intrahep italia dil; suspicion forobstructive stone / biliary etiology is low and would recommend deferring MRCP/ERCP for now -agree w/ liver work up - so far, hepatitis serologies neg (hcv neg; hbSab neg / hbSag neg); cmv/ebv pending; %sat 48%; ferritin 5K; cerulo nl; utox pending; apap neg; -can add on PAM / SMA / quantitative immunoglobulins to r/o AIH; please send hepatitis E (miscellaneous lab request) IgM and IgG -pt should have liver tests repeated in 1-2 weeks to ensure downtrend; -will send message to GI staff to arrange f/u in 2 weeks in liver clinic -seen and d/w attg, Dr. Boswell -please call w/ questions BHAVANA RODRIGUEZ MD, PGY5, GI Fellow [phone] 12/22/2016 Attending Addendum: I have seen and examined the patient with Dr. Rodriguez and agree with his note as above. Nichelle Boswell MD * Plan of Care - Zakiya Boston RN - 12/22/2016 6:24 AM EDT Problem: Patient Care Overview Goal: Plan of Care Review Outcome: Ongoing (Interventions Implemented as Appropriate) 12/22/16 0135 Coping/Psychosocial Plan Of Care Reviewed With patient OUTCOME EVALUATION NOTE: OUTCOME SUMMARY: Patient arrived to unit from outside hospital at approximately 0130, UA sent, labs drawn, vitals remained stable. Will continue to monitor. PLAN MOVING FORWARD: NPO since midnight for possible ERCP D/C when medically ready INDIVIDUALIZED FALL PREVENTION INTERVENTIONS: Patient-specific fall risk factors per assessment: [current deficits]: Medium risk related to IV therapy Assistance [level of assistance required for transfers and ambulation]: Independent Supervision [direct monitoring required during toileting and ADLs]: Eyes on Surveillance [continuous indirect monitoring]: Purposeful hourly rounding, Masimo Patient-specific fall prevention interventions for sensory deficits provided, if applicable: [X] N/A CPG GOAL OUTCOME EVALUATION: documented in this encounter Plan of Treatment Not on file documented as of this encounter Procedures Procedure Name Priority Date/Time Associated Diagnosis Comments MISCELLANEOUS LAB REQUEST Routine 12/22/2016 9:36 AM EDT [facility] Routine 12/22/2016 9 :36 AM EDT [facility] Routine 12/22/2016 9 :36 AM EDT HEPATITIS A ANTIBODY, TOTAL Routine 12/22/2016 9:36 AM EDT MITOCHONDRIAL ANTIBODY, M2 Routine 12/22/2016 9:36 AM EDT IMMUNOGLOBULINS, QUANTITATIVE Routine 12/22/2016 3:15 AM EDT DNA ANTIBODY (DOUBLE-STRANDED) Routine 12/22/2016 3:15 AM EDT HEMOGRAM Routine 12/22/2016 3:15 AM EDT DIFFERENTIAL, AUTOMATED Routine 12/22/2016 3:15 AM EDT HEPATITIS C ANTIBODY Routine 12/22/2016 3:15 AM EDT ELVA-FAULKNER VIRUS ANTIBODIES Routine 12/22/2016 3:15 AM EDT CMV ANTIBODY, IGM Routine 12/22/2016 3:1 5 AM EDT IRON AND TIBC Routine 12/22/2016 3:15 AM EDT PAM TITER Routine 12/22/2016 3:15 AM EDT MITOCHONDRIAL ANTIBODY, M2 Routine 12/22/2016 3:15 AM EDT CERULOPLASMIN Routine 12/22/2016 3:15 AM EDT CMV PCR, QUANTITATIVE Routine 12/22/2016 3:15 AM EDT SMOOTH MUSCLE ANTIBODY Routine 7 3:15 AM EDT HEPATITIS B SURFACE ANTIBODY Routine 12/22/2016 3:15 AM EDT HEPATITIS B SURFACE ANTIGEN Routine 12/22/2016 3:15 AM EDT CMV ANTIBODY, IGG Routine 12/22/2016 3:1 5 AM EDT APTT Routine 12/22/2016 3:15 AM EDT PROTHROMBIN TIME Routine 12/22/2016 3:15 AM EDT CBC (WITH DIFF) Routine 12/22/2016 3:15 AM EDT PAM ANTIBODY SCREEN Routine 12/22/2016 3 :15 AM EDT PHOSPHORUS Routine 12/22/2016 3:15 AM EDT MAGNESIUM Routine 12/22/2016 3:15 AM EDT FERRITIN Routine 12/22/2016 3:15 AM EDT CALCIUM Routine 12/22/2016 3:15 AM EDT ACETAMINOPHEN LEVEL Routine 12/22/2016 3 :15 AM EDT HEPATIC FUNCTION PANEL Routine 7 3:15 AM EDT BASIC METABOLIC PANEL Routine 12/22/2016 3:15 AM EDT POCT GLUCOSE Routine 12/22/2016 3:14 AM EDT DRUG SCREEN WITH CONFIRMATION, URINE (SEND OUT) Routine 12/22/2016 2:56 AM EDT URINALYSIS WITH REFLEX CULTURE Routine 12/22/2016 2:45 AM EDT URINE CULTURE Routine 12/22/2016 2:45 AM EDT documented in this encounter Results * [facility] (12/22/2016 9:36 AM EDT) Pathologist [facility] Test ?Result ? Flag ??Unit ??RefValue HEV IgM Ab Screen, S ?Negative ? Negative ?If clinical suspicion persists, submit new specimen for ?retesting in 1 to 2 weeks. ?Test Performed by: ?[address] [place] [address] [facility] Blood specimen (specimen) Venous Draw / Unknown 12/22/2016 9:36 AM EDT 12/27/2016 10:47 AM EDT Narrative Resulting Agency Comment Spec In Lab Briana Vargas MD LAB SEND OUT SUYAPA COKER [facility] [place] [address] * [facility] (12/22/2016 9:36 AM EDT) Pathologist [facility] Test ? Result ?Flag ??Unit ??RefValue HEV IgG Ab, S ?Negative ?Negative ?Test Performed by: ?[address] [place] [address] [facility] Blood specimen (specimen) Venous Draw / Unknown 12/22/2016 9:36 AM EDT 12/27/2016 10:47 AM EDT Narrative Resulting Agency Comment Spec In Lab Briana Vargas MD LAB SEND OUT ORDERA BLES Performing Organization Address City/[facility]/ZIP Co de Phone Number [facility] [place] [address] * Hepatitis A Antibody, Total (12/22/2016 9:36 AM EDT) Hepatitis A ANTIBODY, TOTAL Negative Negative [facility] Blood specimen (specimen) 12/22/2016 9:36 AM EDT 12/22/2016 9:57 AM EDT Narrative Resulting Agency Comment Spec In Lab Jose Daniel Weir MD CHEMISTRY ORDERABLES Performing Organization Address [facility] Co de Phone Number [facility] [place] [address] * Miscellaneous Lab request (12/22/2016 9:36 AM EDT) Label Request received in lab. [facility] Blood specimen (specimen) 12/22/2016 9:36 AM EDT 12/22/2016 9:57 AM EDT Narrative Resulting Agency Comment Spec In Lab Jose Daniel Weir MD LAB SEND OUT ORDERAB LES Performing Organization Address [facility] Co de Phone Number [facility] [place] [address] * Mitochondrial Antibody, M2 (12/22/2016 9:36 AM EDT) Mitochon Ab (MAY) <0.1 <0.1 (Negative) U [facility] Comment: Test Performed by: [facility] - [address] [address] Blood specimen (specimen) 12/22/2016 9:36 AM EDT 12/22/2016 11:14 AM EDT Narrative Resulting Agency Comment Spec In Lab Jose Daniel Weir MD LAB SEND OUT ORDERAB LES [facility] [place] [address] * PAM Titer (12/22/2016 3:15 AM EDT) PAM Titer positive [facility] Comment: 1:320 Titer seen with Nucleolar pattern. ??Is suggestive of autoantibodies to 4-6 S RNA. ??High titers are a useful marker for scleroderma. Blood specimen (specimen) Venous Draw / Unknown 12/22/2016 3:15 AM EDT 12/22/2016 1:23 PM EDT Narrative Resulting Agency Comment Spec In Lab Briana Vargas MD IMMUNOLOGY ORDERABL ES Performing Organization Address [facility] Co de Phone Number [facility] [place] [address] * DNA Antibody (Double-Stranded) (12/22/2016 3:15 AM EDT) DNA Ab (DS) Neg Neg [facility] Blood specimen (specimen) Venous Draw / Unknown 12/22/2016 3:15 AM EDT 12/22/2016 1:23 PM EDT Narrative Resulting Agency Comment Spec In Lab Briana Vargas MD LAB SEND OUT ORDERA BLES Performing Organization Address [facility] Co de Phone Number [facility] [place] [address] * Immunoglobulins, Quantitative (12/22/2016 3:15 AM EDT) Immunoglobulin G 983 700 - 1,600 mg/dL [facility] IgA 107 70 - 400 mg/dL [facility] IgM 75 40 - 230 mg/dL [facility] Blood specimen (specimen) Venous Draw / Unknown 12/22/2016 3:15 AM EDT 12/22/2016 4:29 AM EDT Narrative Resulting Agency Comment Spec In Lab Jose Daniel Weir MD CHEMISTRY ORDERABLES Performing Organization Address City/[facility]/ZIP Co de Phone Number [facility] [place] [address] * Smooth Muscle Antibody (12/22/2016 3:15 AM EDT) [facility] Sm Muscle Ab (OCTOBER) Negative Negative [facility] Comment: ADDITIONAL INFORMATION This test was developed and its performance characteristics determined by [facility] in a manner consistent with CLIA requirements. This test has not been cleared or approved by the U.S. Food and Drug Administration. Test Performed by: [address] [address] Blood specimen (specimen) Venous Draw / Unknown 12/22/2016 3:15 AM EDT 12/22/2016 1:09 PM EDT Narrative Resulting Agency Comment Spec In Lab Jose Daniel Weir MD LAB SEND OUT ORDERAB LES Performing Organization Address City/[facility]/ZIP Co de Phone Number [facility] [place] [address] * (ABNORMAL) PAM (12/22/2016 3:15 AM EDT) [facility] PAM Titer to follow(A) Neg [facility] Blood specimen (specimen) Venous Draw / Unknown 12/22/2016 3:15 AM EDT 12/22/2016 1:23 PM EDT Narrative Resulting Agency Comment Spec In Lab Jose Daniel Weir MD LAB SEND OUT ORDERAB LES Performing Organization Address City/[facility]/ZIP Co de Phone Number [facility] [place] [address] * Differential, Automated (12/22/2016 3:15 AM EDT) [facility] Neutrophil % 54.1 % [facility] Neutrophil Absolute 2.50 1.70 - 6.10 x10(3)/[facility] Lymph % 31.7 % [facility] Lymphocytes Abs 1.5 0.9 - 3.2 x10(3)/[facility] Monocyte % 10.8 % [facility] Monocyte Abs 0.5 0.3 - 0.9 x10(3)/[facility] Eos % 2.4 % [facility] Eosinophils Abs 0.1 0.0 - 0.4 x10(3)/[facility] Basophil % 0.6 % [facility] Baso Absolute 0.0 0.0 - 0.1 x10(3)/[facility] Immature Gran % 0.40 % [facility] Comment: Immature granulocytes(IG's)percentage and absolute count will include metamyelocytes, myelocytes, and promyelocytes. Blood smears from CBCs yielding IG's will be scanned manually for concordance. If this scan disagrees with the automated IG or if promyelocytes are noted, a manual differential will be performed. Immature Gran Absolute 0.02 0.00 - 0.04 x10(3)/[facility] Blood specimen (specimen) 12/22/2016 3:15 AM EDT 12/22/2016 3:39 AM EDT Narrative Resulting Agency Comment Spec In Lab Jose Daniel Weir MD HEMATOLOGY ORDERABLE S [facility] [place] [address] * Hemogram (12/22/2016 3:15 AM EDT) White Blood Cell 4.6 4.0 - 9.5 x10(3)/[facility] Red Blood Cell 4.67 4.00 - 5.21 x10(6)/[facility] Hemoglobin 14.3 11.7 - 15.5 gm/dL [facility] Hematocrit 41.8 35.7 - 45.8 % [facility] Mean Cell Volume 89.5 82.6 - 94.4 fL [facility] Mean Cell Hemoglobin 30.6 27.1 - 32.0 pg [facility] Mean Cell Hemoglobin Concentration 34.2 31.7 - 35.0 gm/dL [facility] Platelet 145 145 - 357 x10(3)/[facility] RDW Standard Deviation 42.8 37.0 - 46.0 fL [facility] RDW coefficient of variation 13.0 11.5 - 14.1 % [facility] Mean Platelet Volume 11.6 7.6 - 12.9 fL [facility] NRBC% auto 0.0 % [facility] NRBC Absolute 0.000 0.000 - 0.000 x10(3)/[facility] Blood specimen (specimen) 12/22/2016 3:15 AM EDT 12/22/2016 3:39 AM EDT Narrative Resulting Agency Comment Spec In Lab oJse Daniel Weir MD HEMATOLOGY ORDERABLE S Performing Organization Address City/[facility]/ZIP Co de Phone Number [facility] [place] [address] * Mitochondrial Antibody, M2 (12/22/2016 3:15 AM EDT) [facility] Mitochon Ab (OCTOBER) <0.1 <0.1 (Negative) U [facility] Comment: Test Performed by: [address] [address] Blood specimen (specimen) 12/22/2016 3:15 AM EDT 12/22/2016 8:44 AM EDT Narrative Resulting Agency Comment Spec In Lab Jose Daniel Weir MD LAB SEND OUT ORDERAB LES [facility] [place] [address] * CMV Antibody, IgM (12/22/2016 3:15 AM EDT) [facility] CMV IgM Negative Negative [facility] Blood specimen (specimen) 12/22/2016 3:15 AM EDT 12/22/2016 3:39 AM EDT Narrative Resulting Agency Comment Spec In Lab Jose Daniel Weir MD IMMUNOLOGY ORDERABLE S Performing Organization Address [facility] Co de Phone Number [facility] [place] [address] * CMV Antibody, IgG (12/22/2016 3:15 AM EDT) CMV IgG Negative Negative [facility] Blood specimen (specimen) 12/22/2016 3:15 AM EDT 12/22/2016 3:39 AM EDT Narrative Resulting Agency Comment Spec In Lab Jose Daniel Weir MD IMMUNOLOGY ORDERABLE S Performing Organization Address [facility] Co de Phone Number [facility] [place] [address] * Ceruloplasmin (12/22/2016 3:15 AM EDT) Ceruloplasmin 30.3 16.0 - 45.0 mg/dL [facility] Blood specimen (specimen) 12/22/2016 3:15 AM EDT 12/22/2016 3:39 AM EDT Narrative Resulting Agency Comment Spec In Lab Jose Daniel Weir MD CHEMISTRY ORDERABLES Performing Organization Address City/[facility] Co de Phone Number [facility] [place] [address] * (ABNORMAL) Iron and TIBC (12/22/2016 3:15 AM EDT) Iron 166(H) 30 - 150 mcg/dL [facility] TIBC 349 250 - 450 mcg/dL [facility] Iron Saturation 48 20 - 50 % [facility] Blood specimen (specimen) 12/22/2016 3:15 AM EDT 12/22/2016 3:39 AM EDT Narrative Resulting Agency Comment Spec In Lab Jose Daniel Weir MD CHEMISTRY ORDERABLES Performing Organization Address [facility] Co de Phone Number [facility] [place] [address] * (ABNORMAL) Ferritin (12/22/2016 3:15 AM EDT) [facility] Ferritin 5,630(H) 15 - 150 ng/mL [facility] Comment: Pediatric reference ranges not verified at [facility], interpret with caution. Reference ranges for females greater than 50 years of age approach values for men, i.e., 30-400 ng/mL. Blood specimen (specimen) 12/22/2016 3:15 AM EDT 12/22/2016 3:39 AM EDT Narrative Resulting Agency Comment Spec In Lab Jose Daniel Weir MD CHEMISTRY ORDERABLES Performing Organization Address [facility] Phone Number [facility] [place] [address] * Acetaminophen level (12/22/2016 3:15 AM EDT) [facility] Acetamin Lvl <5 10 - 30 mg/L [facility] Comment: Levels >150 mg/L at 4 hours post ingestion or >75 mg/L at 8 hours post ingestion are often an indication for N-Acetylcysteine. Blood specimen (specimen) 12/22/2016 3:15 AM EDT 12/22/2016 3:39 AM EDT Narrative Resulting Agency Comment Spec In Lab Jose Daniel Weir MD CHEMISTRY ORDERABLES Performing Organization Address [facility] Co de Phone Number [facility] [place] [address] * (ABNORMAL) Elva-Faulkner Virus Antibodies (12/22/2016 3:15 AM EDT) [facility] EBV (VCA) IgG Ab Pos(A) Neg [facility] EBV (VCA) IgM Ab Neg Neg [facility] EBNA Antibodies Pos(A) Neg [facility] EBV Interpretation Results suggest past infection. [facility] Comment: In most populations, at least 90% of the adult population will have been infected with EBV some time in the past and therefore, will be positive for anti-VCA/IgG and anti-EBNA. Antibodies to EBNA develop 6-8 weeks after primary infection and remain present for life. Presence of VCA/IgM antibodies indicates recent primary infection with EBV. Blood specimen (specimen) 12/22/2016 3:15 AM EDT 12/22/2016 7:15 AM EDT Narrative Resulting Agency Comment Spec In Lab Jose Daniel Weir MD IMMUNOLOGY ORDERABLE S Performing Organization Address [facility]/ZIP Co de Phone Number [facility] [place] [address] * CMV PCR, Quantitative (12/22/2016 3:15 AM EDT) CMV Quant (Numeric) <137 IU/mL [facility] CMV Quant (Interp) Result: Not Detected Sample: plasma Method: This quantitative real-time PCR assay was performed in the [facility] Molecular Pathology Laboratory using ??BALWINDER?? AmpliPrep/BALWINDER? ? TaqMan?? CMV Test ([employer] Linear Range: 137 IU/mL - 9,100,000 IU/mL (2.14 log ? 6.96 log IU/mL) Limit of Detection: 91 IU/mL (1.96 log IU/mL) [facility] Blood specimen (specimen) 12/22/2016 3:15 AM EDT 12/22/2016 7:38 AM EDT Narrative Resulting Agency Comment Spec In Lab Jose Daniel Weir MD MOLECULAR ORDERABLES Performing Organization Address [facility]/ZIP Co de Phone Number [facility] [place] [address] * Hepatitis B Surface Antigen (12/22/2016 3:15 AM EDT) Hepatitis B Surface Antigen Negative Negative [facility] Blood specimen (specimen) 12/22/2016 3:15 AM EDT 12/22/2016 3:39 AM EDT Narrative Resulting Agency Comment Spec In Lab Jose Daniel Weir MD CHEMISTRY ORDERABLES Performing Organization Address [facility] Co de Phone Number [facility] [place] [address] * Hepatitis B Surface Antibody (12/22/2016 3:15 AM EDT) Hepatitis B Surface Antibody, Quantitative <3.5 IU/L [facility] Comment: HepB Surface Ab Quant: Unvaccinated: < 8.5 IU/L Vaccinated: > 11.5 IU/L Hepatitis B Surface Antibody Negative [facility] Comment: Patient is presumed to be not vaccinated or immune to HBV infection. Expected Results: Vaccinated: Positive Unvaccinated: Negative Blood specimen (specimen) 12/22/2016 3:15 AM EDT 12/22/2016 3:39 AM EDT Narrative Resulting Agency Comment Spec In Lab Jose Daniel Weir MD CHEMISTRY ORDERABLES Performing Organization Address [facility] Co de Phone Number [facility] [place] [address] * Hepatitis C Antibody (12/22/2016 3:15 AM EDT) Hepatitis C Antibody Negative Negative [facility] Comment: An updated Hepatitis C Ab assay reagent was implemented on 08/18/16. Please contact Dr. Tolbert at [phone] with any questions or concerns. Blood specimen (specimen) 12/22/2016 3:15 AM EDT 12/22/2016 3:39 AM EDT Narrative Resulting Agency Comment Spec In Lab Jose Daniel Weir MD CHEMISTRY ORDERABLES Performing Organization Address City/[facility] Co de Phone Number [facility] [place] [address] * APTT (12/22/2016 3:15 AM EDT) [facility] Partial Thromboplastin Time 32 25 - 35 sec [facility] Comment: The recommended therapeutic range for full dose, unfractionated heparin at [facility] is 80 ? 114 seconds. The use of the anti-Xa (heparin) level rather than the PTT is recommended for monitoring anticoagulation intensity in critically ill patients receiving unfractionated heparin by continuous IV infusion. Blood specimen (specimen) 12/22/2016 3:15 AM EDT 12/22/2016 3:39 AM EDT Narrative Resulting Agency Comment Spec In Lab Jose Daniel Weir MD HEMATOLOGY ORDERABLE S Performing Organization Address [facility] Co de Phone Number [facility] [place] [address] * Prothrombin Time (12/22/2016 3:15 AM EDT) [facility] Prothrombin Time 14.0 12.0 - 15.0 sec [facility] Comment: An INR <2.0 [...] depending on clinical circumstances. International Normalization Ratio 1.0 0.9 - 1.1 [facility] Blood specimen (specimen) 12/22/2016 3:15 AM EDT 12/22/2016 3:39 AM EDT Narrative Resulting Agency Comment Spec In Lab Jose Daniel Weir MD HEMATOLOGY ORDERABLE S Performing Organization Address [facility] Co de Phone Number [facility] [place] [address] * (ABNORMAL) Hepatic Function Panel (12/22/2016 3:15 AM EDT) [facility] Protein, Total 6.9 6.1 - 8.0 gm/dL [facility] Albumin 3.9 3.2 - 5.2 gm/dL [facility] Aspartate Aminotransferase 778(H) 0 - 30 unit/L [facility] Alanine Aminotransferase 1,714(H) 0 - 30 unit/L [facility] Alkaline Phosphatase 97 40 - 104 unit/L [facility] Bilirubin, Total 6.4(H) 0.2 - 1.3 mg/dL [facility] Bilirubin, Direct 5.0(H) 0.0 - 0.3 mg/dL [facility] Blood specimen (specimen) 12/22/2016 3:15 AM EDT 12/22/2016 3:39 AM EDT Narrative Resulting Agency Comment Spec In Lab Jose Daniel Weir MD CHEMISTRY ORDERABLES Performing Organization Address [facility] Co de Phone Number [facility] [place] [address] * Phosphorus (12/22/2016 3:15 AM EDT) Phosphorus 3.6 2.5 - 4.5 mg/dL [facility] Blood specimen (specimen) 12/22/2016 3:15 AM EDT 12/22/2016 3:39 AM EDT Narrative Resulting Agency Comment Spec In Lab Jose Daniel Weir MD CHEMISTRY ORDERABLES Performing Organization Address [facility] Co de Phone Number [facility] [place] [address] * Magnesium (12/22/2016 3:15 AM EDT) Magnesium 0.87 0.69 - 1.07 mmol/L [facility] Blood specimen (specimen) 12/22/2016 3:15 AM EDT 12/22/2016 3:39 AM EDT Narrative Resulting Agency Comment Spec In Lab Jose Daniel Weir MD CHEMISTRY ORDERABLES Performing Organization Address City/[facility]/ZIP Co de Phone Number [facility] [place] [address] * Calcium (12/22/2016 3:15 AM EDT) Calcium 9.2 8.5 - 10.5 mg/dL [facility] Blood specimen (specimen) 12/22/2016 3:15 AM EDT 12/22/2016 3:39 AM EDT Narrative Resulting Agency Comment Spec In Lab Jose Daniel Weir MD CHEMISTRY ORDERABLES [facility] [place] [address] * (ABNORMAL) Basic Metabolic Panel (non-fasting) (12/22/2016 3:15 AM EDT) Glucose 187 65 - 199 mg/dL [facility] Comment:Diabetes: >=200 mg/d L plus symptoms Blood Urea Nitrogen 8 8 - 18 mg/dL [facility] Creatinine 0.69(L) 0.70 - 1.20 mg/dL [facility] Comment: Please note that the pediatric reference intervals supplied above were not validated at [facility]. Results from pediatric patients should be interpreted in conjunction to the patient's age, height and muscle mass. Sodium 138 135 - 145 mmol/L [facility] Potassium 3.4(L) 3.5 - 5.0 mmol/L [facility] Comment: Please note: ??Patients with WBC >100,000 may have falsely elevated Potassium levels. ??For accurate Potassium quantification in these patients send serum separator tube (gold top) for subsequent determinations. ??Contact the Clinical Chemistry Laboratory if there are any questions. Chloride 99 98 - 107 mmol/L [facility] Carbon Dioxide 24 22 - 31 mmol/L [facility] Anion Gap 15 5 - 15 mmol/L [facility] Calcium 9.2 8.5 - 10.5 mg/dL [facility] Est Glomerular Filtration Rate >60 >=60 [facility] Comment: This estimated GFR [...] the following links into your internet browser. [email or web address] Blood specimen (specimen) 12/22/2016 3:15 AM EDT 12/22/2016 3:39 AM EDT Narrative Resulting Agency Comment Spec In Lab Jose Daniel Weir MD CHEMISTRY ORDERABLES Performing Organization Address [facility] de Phone Number [facility] [place] [address] * POCT Glucose (12/22/2016 3:14 AM EDT) [facility] Glucose, POC 160 65 - 199 mg/dL [facility] Comment: Supplemental ranges: <140 mg/dL before meals <180 mg/dL all other times of the day Blood specimen (specimen) 12/22/2016 3:14 AM EDT 12/22/2016 3:14 AM EDT Jose Daniel Weir MD POINT OF CARE TEST O RDERABLES Performing Organization Address [facility] de Phone Number [facility] [place] [address] * Drug Screen with Confirmation, Urine (12/22/2016 2:56 AM EDT) U [facility]O w/Conf Test ? Result ? Flag ??Unit ?? RefValue ------- [facility] Survey, U ??Creatinine, U ?99.9 ? mg/dL ??Specific Wood ? 1.010 ??pH ? 6.1 ??Oxidants ? Negative ?Cutoff: 200 mg/L ??Comment ?Normal ??Amphetamines ? Negative ? ng/mL ??Cutoff: 500 ??Barbiturates ? Negative ? ng/mL ??Cutoff: 200 ??Benzodiazepines ?Negative ? ng/mL ??Cutoff: 100 ??Cocaine ?Negative ? ng/mL ??Cutoff: 150 ??Phencyclidine ?Negative ? ng/mL ??Cutoff: 25 ??Tetrahydrocannab inol ? Negative ? ng/mL ??Cutoff: 50 ? ---ADDITIONAL INFORMATION------- ?This report is intended for use in clinical monitoring or ?management of patients. ??It is not intended for use in ?employment-relat ed testing. ??Codeine ?Not Detected ? ng/mL ??Cutoff: 25 ?Tylenol 3 ??Wicxptf-6-ymsj-g lucuronide ? Not Detected ? ng/mL ??Cutoff: 100 ?Metabolite of codeine ??Morphine ? Not Detected ? ng/mL ??Cutoff: 25 ?Adina Price, MS Contin; Also a minor metabolite (10%) of ?codeine and can be seen in low concentrations (<2,000 ?ng/mL) with poppy seed ingestion. ??Adlcnvbd-2-glrz- glucuronide ?Not Detected ? ng/mL ??Cutoff: 100 ?Metabolite of morphine ??6-monoacetylmorp tanvi ? Not Detected ? ng/mL ??Cutoff: 25 ?Metabolite of heroin ??Hydrocodone ?Not Detected ? ng/mL ??Cutoff: 25 ?Lortab, [place], Vicodin; Also a very minor metabolite of ?codeine and impurity (<1%) of oxycodone. ??Norhydrocodone ? Not Detected ? ng/mL ??Cutoff: 25 ?Metabolite of hydrocodone ??Dihydrocodeine ? Not Detected ? ng/mL ??Cutoff: 25 ?Metabolite of hydrocodone ??Hydromorphone ?Not Detected ? ng/mL ??Cutoff: 25 ?Dilaudid, Exalgo; Also a metabolite of hydrocodone and a ?minor (<5%) metabolite of morphine. ??Hydromorphone-3- beta-glucuronide ?? Not Detected ? ng/mL ??Cutoff: 100 ?Metabolite of hydromorphone ??Oxycodone ?Not Detected ? ng/mL ??Cutoff: 25 ?Endocet, Percocet, Oxycontin ??Noroxycodone ? Not Detected ? ng/mL ??Cutoff: 25 ?Metabolite of oxycodone ??Oxymorphone ?Not Detected ? ng/mL ??Cutoff: 25 ?Numorphan, Opana; Also a metabolite of oxycodone. ??Zytfxrdmfqj-6-gd ta-glucuronide ? Not Detected ? ng/mL ??Cutoff: 100 ?Metabolite of oxymorphone ??Noroxymorphone ? Not Detected ? ng/mL ??Cutoff: 25 ?Metabolite of oxymorphone ??Fentanyl ? Not Detected ? ng/mL ??Cutoff: 2 ?Actiq, Duragesic, Fentora ??Norfentanyl ?Not Detected ? ng/mL ??Cutoff: 2 ?Metabolite of fentanyl ??Meperidine ? Not Detected ? ng/mL ??Cutoff: 25 ?Demerol ??Normeperidine ?Not Detected ? ng/mL ??Cutoff: 25 ?Metabolite of meperidine ??Naloxone ? Not Detected ? ng/mL ??Cutoff: 25 ?Narcan ??Xjhojfmg-4-ibwg- glucuronide ?Not Detected ? ng/mL ??Cutoff: 100 ?Metabolite of naloxone ??Methadone ?Not Detected ? ng/mL ??Cutoff: 25 ?Dolophine ??EDDP ? Not Detected ? ng/mL ??Cutoff: 25 ?Metabolite of methadone ??Propoxyphene ? Not Detected ? ng/mL ??Cutoff: 25 ?Darvon, Darvocet ??Norpropoxyphene ?Not Detected ? ng/mL ??Cutoff: 25 ?Metabolite of propoxyphene ??Tramadol ? Not Detected ? ng/mL ??Cutoff: 25 ?Tradol, Ultram, Ultracet ??O-desmethyltrama dol ?Not Detected ? ng/mL ??Cutoff: 25 ?Metabolite of tramadol ??Tapentadol ? Not Detected ? ng/mL ??Cutoff: 25 ?Nucynta ??N-desmethyltapen tadol ?Not Detected ? ng/mL ??Cutoff: 50 ?Metabolite of tapentadol ??Tapentadol-beta- glucuronide ?Not Detected ? ng/mL ??Cutoff: 100 ?Metabolite of tapentadol ??Buprenorphine ?Not Detected ? ng/mL ??Cutoff: 5 ?Buprenex, Suboxone ??Norbuprenorphine ? Not Detected ? ng/mL ??Cutoff: 5 ?Metabolite of buprenorphine ??Norbuprenorphine glucuronide ? Not Detected ? ng/mL ??Cutoff: 20 ?Metabolite of buprenorphine ??Opioid Interpretation ?SEE COMMENTS ?No opioids were detected. The absence of expected drug(s) ?and/or drug metabolite(s) may indicate non-compliance, ?altered pharmacokinetics, inappropriate timing of specimen ?collection relative to drug administration, ?diluted/adultera ken urine, or limitations of testing. ? ---ADDITIONAL INFORMATION------- ?This test was developed and its performance characteristics ?determined by [facility] in a manner consistent with CLIA ?requirements. This test has not been cleared or approved by ?the U.S. Food and Drug Administration. ?Test Performed by: ?[facility] ?[address] [place] [address] [facility] Urine specimen (specimen) 12/22/2016 2:56 AM EDT 12/22/2016 9:44 AM EDT Narrative Resulting Agency Comment Spec In Lab Jose Daniel Weir MD URINE ORDERABLES Performing Organization Address [facility]/ZIP Co de Phone Number [facility] [place] [address] * (ABNORMAL) Urine culture (12/22/2016 2:45 AM EDT) Urine Culture 1,000-9,000 cfu/ml Gram Positive organisms , probable contaminant(A ) [facility] Urine specimen obtained by clean catch procedure (specimen) 12/22/2016 2:45 AM EDT 12/22/2016 7:27 AM EDT Narrative Resulting Agency Comment Spec In Lab Jose Daniel Weir MD MICROBIOLOGY - GENER AL ORDERABLES Performing Organization Address [facility] Co de Phone Number [facility] [place] [address] * (ABNORMAL) Urinalysis with reflex Culture (12/22/2016 2:45 AM EDT) Glucose, Urine Dipstick Negative Negative mg/dL [facility] Protein, Urine Dipstick Negative Negative mg/dL [facility] Bilirubin, Urine Dipstick Small(A) Negative mg/dL [facility] Comment: Clinical correlation required for positive Urine Bilirubin results as false positive may occur with some drugs and drug related products. If a false positive is suspected a serum total bilirubin should be considered if clinically indicated. Urobilinogen, Urine Dipstick 2.0(A) Normal mg/dL [facility] pH, Urn (dipstick) 5.0 5.0 - 8.0 [facility] Blood, Urine Dipstick Small(A) Negative mg/dL [facility] Ketone, Urine Dipstick 5(A) Negative mg/dL [facility] Nitrite, Urine Dipstick Negative Negative [facility] Leukocytes, Urine Dipstick Negative Negative [facility] Appearance, Urine Dipstick Cloudy(A) Clear [facility] Specific Wood Urine Automated 1.012 1.002 - 1.030 [facility] Color, Urine Dipstick Neela Yellow [facility] RBC, Urine 3 0 - 4 /HPF [facility] WBC, Urine 14(H) 0 - 5 /HPF [facility] Bacteria, Urine Moderate(A) None /HPF [facility] Squamous Epithelial Cells Raw Data, Urine 22(H) <=4 /HPF [facility] Reflex to Culture Yes [facility] Urine specimen obtained by clean catch procedure (specimen) 12/22/2016 2:45 AM EDT 12/22/2016 3:00 AM EDT Narrative Resulting Agency Comment Spec In Lab Jose Daniel Weir MD URINE ORDERABLES [facility] [place] [place] [address] documented in this encounter Visit Diagnoses Diagnosis Transaminitis Nonspecific elevation of levels of transaminase or lactic acid dehydrogenase (LDH) Transaminitis Nonspecific elevation of levels of transaminase or lactic acid dehydrogenase (LDH) documented in this encounter Admitting Diagnoses Diagnosis Transaminitis Nonspecific elevation of levels of transaminase or lactic acid dehydrogenase (LDH) documented in this encounter Administered Medications Inactive Administered Medications - up to 3 most recent administrations Medication Order MAR Action Action Date Dose Rate Site levothyroxine (SYNTHROID) tablet 137 mcg 137 mcg, Oral, DAILY, First dose on Tue12/22/16 at 0600, Until Discontinued, Routine Given 12/22/2016 6:19 AM EDT 137 mcg ondansetron (ZOFRAN) injection 4 mg 4 mg, Intravenous, EVERY 8 HOURS PRN, Starting on Tue12/22/16 at 0243, Until Tue12/22/16 at 1718, Nausea, May repeat times one in 30 minutes if ineffective. If multiple antiemetics are ordered, give ondansetron first. ondansetron (ZOFRAN) tablet 4 mg 4 mg, Oral, EVERY 8 HOURS PRN, Starting on Tue12/22/16 at 0243, Until Tue12/22/16 at 1718, Nausea, Vomiting, If multiple antiemetics are ordered, use ondansetron first. PO Preferred. If patient unable to take PO, may give IV if ordered. May repeat times one in 45 minutes if ineffective. If unable to take PO, may give IV., Routine Given 12/22/2016 12:10 PM EDT 4 mg sodium chloride 0.9 % flush 5 mL 5 mL, Intravenous, 2 TIMES DAILY, First dose on Tue12/22/16 at 0900, Until Discontinued, Routine Given 12/22/2016 9:00 AM EDT 5 mLs documented in this encounter Active and Recently Administered Medications Times are shown in EDT. Scheduled Medication Order 12/20/2016 12/21/2016 12/22/2016 levothyroxine (SYNTHROID) tablet 137 mcg 137 mcg, Oral, DAILY, First dose on Tue12/22/16 at 0600, Until Discontinued, Routine 0619 (Given - Provid er: Zakiya Boston RN) sodium chloride 0.9 % flush 5 mL 5 mL, Intravenous, 2 TIMES DAILY, First dose on Tue12/22/16 at 0900, Until Discontinued, Routine 0900 (Given - Provid er: Latoya Anne, CHARLEY) PRN Medication Order 12/20/2016 12/21/2016 12/22/2016 lidocaine (XYLOCAINE) 10 mg/mL (1 %) injection 3 mg 3 mg (0.3 mL), Subcutaneous, ONCE PRN, 1 dose, Starting on Tue12/22/16 at 0243, Until Tue12/22/16 at 1718, for discomfort with PIV insertion, Routine ondansetron (ZOFRAN) injection 4 mg(Linked Group 1) 4 mg, Intravenous, EVERY 8 HOURS PRN, Starting on Tue12/22/16 at 0243, Until Tue12/22/16 at 1718, Nausea, May repeat times one in 30 minutes if ineffective. If multiple antiemetics are ordered, give ondansetron first. 1210 (See Alternativ e - Provider: Latoya Anne RN) ondansetron (ZOFRAN) tablet 4 mg(Linked Group 1) 4 mg, Oral, EVERY 8 HOURS PRN, Starting on Tue12/22/16 at 0243, Until Tue12/22/16 at 1718, Nausea, Vomiting, If multiple antiemetics are ordered, use ondansetron first. PO Preferred. If patient unable to take PO, may give IV if ordered. May repeat times one in 45 minutes if ineffective. If unable to take PO, may give IV., Routine 1210 (Given - Provid er: Latoya Anne RN) sodium chloride 0.9 % flush 5-20 mL 5-20 mL, Intravenous, EVERY 1 MIN PRN, Starting on Tue12/22/16 at 0243, Until Tue12/22/16 at 1718, flush, Flush pertains to all indwelling lines. Flush per protocol found in the job aid using the link provided on this medication record., Routine Linked Groups Order Group 1: ondansetron (ZOFRAN) tablet 4 mgJump to med 4 mg, Oral, EVERY 8 HOURS PRN, Starting on Tue12/22/16 at 0243, Until Tue12/22/16 at 1718, Nausea, Vomiting, If multiple antiemetics are ordered, use ondansetron first. PO Preferred. If patient unable to take PO, may give IV if ordered. May repeat times one in 45 minutes if ineffective. If unable to take PO, may give IV., Routine Or ondansetron (ZOFRAN) injection 4 mgJump to med 4 mg, Intravenous, EVERY 8 HOURS PRN, Starting on Tue12/22/16 at 0243, Until 12/22/16 at 1718, Nausea, May repeat times one in 30 minutes if ineffective. If multiple antiemetics are ordered, give ondansetron first. documented in this encounter Care Teams Intensive Care Nurse Relationship Specialty Start Date End Date None None PCP - General 12/21/16 02/07/21 documented as of this encounter
--- OUTSIDE RECORDS SUMMARY | 2024-06-25 13:30 | XMS_ITS | Encounter Summary ---
[place] [address] Care Team Providers Care Breast Buffer Name Role Phone Chelsey Preciado Primary Care Provider [phone]- [phone] Encounter Details Date Type Department Care Team (Late st Contact Info) Description 05/28/2021 Telephone [place] [phone] Chelsea Crouch Social History Tobacco Use Types Packs/Day Years [...] on filedocumented in this encounter Care Teams Breast Buffer Relationship Specialty Start Date End Date Chelsey Preciado PA [address] [place] [address] PCP - General Family Medicine 02/08/21 documented as of this encounter
--- OUTSIDE RECORDS SUMMARY | 2024-06-25 13:30 | XMS_ITS | Clinical Summary ---
Author Organization [facility] Address [address] [place] [address] Care Team Providers Care Profile Grinder Technician Name Role Phone Yan Calderon MD Unavailable Unavailable Chelsey Preciado PA-C Primary Care Provider + Allergies No known active allergies Medications levothyroxine (SYNTHROID) 137 mcg tablet Take 137 mcg by mouth daily. Active Active Problems No known active problems Social History Tobacco Use Types Packs/Day Years Used Date Smoking Tobacco: Never Smokeless Tobacco: Never Interpersonal Safety Answer Date Record ed Physically Hurt Never 01/06/2020 Verbally Threaten Not on file 01/06/2020 Comments Unknown Sex and Gender Information Value Date Recorded Sex Assigned at Not on file Legal Sex Female 18:38 EST Gender Identity Not on file Sexual Orientation Not on file Obstetrics History Plan of Treatment Health Maintenance Due Date Last Done Comments Hepatitis C Screen 1987 Hepatitis B Vaccine (1 of 3 - 19+ 3-dose series) 06/09 COVID-19 Vaccine (2023- season) 2024 Insurance MEDICAID [place] Care Teams Profile Grinder Technician Relationship Specialty Start Date End Date Chelsey Preciado PA-C [address] [place] [phone] PCP - General 09/10/21 Yan Calderon MD 05/03/16
--- OUTSIDE RECORDS SUMMARY | 2024-06-25 13:30 | XMS_ITS | Encounter Summary ---
Author Organization [facility] Address [address] [place] [address] Care Team Providers Care Road Machine Runner Name Role Phone Yumiko, Yan LACKEY Unavailable Unavailable Chelsey Preciado PA-C Primary Care Provider + Encounter Details Date Type Department Care Team (Late st Contact Info) Description 01/04/2024 Lab Requisition [facility] Pathology & Laboratory Medicine - [address] [address] Manju Ly MD [address] [place] [address] [place] [address] Encounter for other general examination [...] Date/Time Associated Diagnosis Comments PAP TEST Today 01/03/2024 11:30 EDT Encounter for other general examination HPV DNA DETECTION WITH GENOTYPING, PCR Today 01/03/2024 11:30 EDT Encounter for other general examination documented in this encounter Results * HPV DNA DETECTION WITH GENOTYPING, PCR (01/03/2024 11:30 EDT) HPV High Risk type 16, PCR Negative Negative 01/09/2024 15:31 T [facility] HPV High Risk type 18, PCR Negative Negative 01/09/2024 15:31 [facility] HPV other High Risk types, PCR Negative Negative 01/09/2024 15:31 [facility] Comment: The following Other High Risk HPV types were not detected: ??31,33, 35, 39, 45, 51, 52, 56, 58, 59, 66 and 68. Pap Test CERVIX UTERI STRUCTURE / Unknown 01/03/2024 11:30 EDT 01/06/2024 15:03 EDT us Manju Ly MD MICROBIOLOGY - GENERAL ORDER SALEEM Final Result [facility] [address] [place] [phone] * PAP TEST (01/03/2024 11:30 EDT) Specimens A. Cervix and/or Endocervix , ThinPrep Imaging System with Manual Evaluation 01/09/2024 15:31 [facility] Specimen Adequacy Satisfactory for Evaluation - transformation zone component present 01/09/2024 15:31 [facility] General Categorization Negative for intraepithelial lesion or malignancy 01/09/2024 15:31 [facility] Attestation . 01/09/2024 15:31 [facility] at 1531 Clinical History See below 01/09/20 15:31 [facility] Performing Lab [facility] 01/09/2024 15:31 [facility] Scanned Images 01/09/2024 15:31 [facility] HPV High Risk type 16, PCR Negative 01/09/2024 15:31 [facility] HPV High Risk type 18, PCR Negative 01/09/2024 15:31 EDT [facility] HPV Other High Risk Types, PCR Negative The following Other High Risk HPV types were not detected: 31,33, 35, 39, 45, 51, 52, 56, 58, 59, 66 and 68. 01/09/2024 15:31 EDT [facility] Pap Test CERVIX UTERI STRUCTURE / Unknown 01/03/2024 11:30 EDT 01/04/2024 9:22 EDT us Manju Ly MD PATHOLOGY ORDERABLES Final R esult [facility] [address] [place] [address] documented in this encounter Visit Diagnoses Diagnosis Encounter for other general examination documented in this encounter Care Teams Road Machine Runner Relationship Specialty Start Date End Date Chelsey Preciado PA-C [address] [place] [phone] PCP - General 09/10/21 Yan Calderon MD 05/03/16 documented as of this encounter
--- OUTSIDE RECORDS SUMMARY | 2024-06-25 13:30 | XMS_ITS | Encounter Summary ---
[place] [address] Care Team Providers Care High School Tutor Name Role Phone Chelsey Preciado Primary Care Provider +1- [phone] Encounter Details Date Type Department Care Team (Late st Contact Info) Description 03/03/2021 Telephone [place] [phone] Taina Vines Social History Tobacco Use Types Packs/Day Years [...] on filedocumented in this encounter Care Teams High School Tutor Relationship Specialty Start Date End Date Chelsey Preciado PA [address] [place] [address] PCP - General Family Medicine 02/08/21 documented as of this encounter
--- OUTSIDE RECORDS SUMMARY | 2024-06-25 13:30 | XMS_ITS | Encounter Summary ---
Author Organization [facility] Address [address] [place] [address] Care Team Providers Care Curriculum Specialist Name Role Phone Toll, Yan LACKEY Unavailable Unavailable Chelsey Preciado PA-C Primary Care Provider + Encounter Details Date Type Department Care Team (Late st Contact Info) Description 11/20/2021 Lab Requisition [facility] Pathology & Laboratory Medicine - [address] [id number] Outr Resulting Lab, Provider Social History Tobacco [...] Procedure Name Priority Date/Time Associated Diagnosis Comments VARICELLA ZOSTER VIRUS MOLECULAR DETECTION, PCR Routine 11/20/2021 10:00 EDT HSV (HERPES SIMPLEX VIRUS) MOLECULAR DETECTION, PCR Routine 11/20/2021 10:00 EDT documented in this encounter Results * VARICELLA ZOSTER VIRUS MOLECULAR DETECTION, PCR (11/20/2021 10:00 EDT) VARICELLA ZOSTER VIRUS MOLECULAR DETECTION, PCR Negative Negative, Invalid 11/22/2021 9:21 EDT [facility] Comment:This test was develo ped and its performance characteristics determined by [facility]. It has not been cleared or approved by the US Food and Drug Administration. FDA does not require this test to go through premarket FDA review. This test is used for clinical purposes. It should not be regarded as investigational or research. This laboratory is certified under the Clinical Laboratory Improvement Amendments (CLIA) as qualified to perform high complexity clinical laboratory testing. Swab TISSUE SPECIMEN FROM SKIN / Unknown 11/20/2021 10:00 EDT 11/20/2021 21:56 EDT us Provider Outr Resulting Lab MICROBIOLOGY - GENER AL ORDERABLES Final Result Performing Organization Address [facility] Co de Phone Number [facility] [address] [place] [address] * HERPES SIMPLEX VIRUS MOLECULAR DETECTION, PCR (11/20/2021 10:00 EDT) Herpes Simplex Virus Molecular Detection 1, PCR Negative Negative 11/22/2021 9:21 EDT [facility] Herpes Simplex Virus Molecular Detection 2, PCR Negative Negative 11/22/2021 9:21 EDT [facility] Swab TISSUE SPECIMEN FROM SKIN / Unknown 11/20/2021 10:00 EDT 11/20/2021 21:56 EDT us Provider Outr Resulting Lab MICROBIOLOGY - GENER AL ORDERABLES Final Result Performing Organization Address [facility] Co de Phone Number [facility] [address] [place] [address] documented in this encounter Visit Diagnoses Not on filedocumented in this encounter Care Teams Curriculum Specialist Relationship Specialty Start Date End Date Chelsey Preciado PA-C [address] [place] [address] PCP - General 09/10/21 Yan Calderon MD 05/03/16 documented as of this encounter
--- OUTSIDE RECORDS SUMMARY | 2024-06-25 13:30 | XMS_ITS | Referral Summary ---
Author Organization [facility] Address [address] [place] [address] Care Team Providers Care Barrel Inspector Tight Name Role Phone Yumiko, Yan LACKEY Unavailable [...] on file Sexual Orientation Not on file Plan of Treatment Not on file Insurance MEDICAID [place] Care Teams Barrel Inspector Tight Relationship Specialty Start Date End Date Chelsey Preciado PA-C [address] [place] [address] PCP - General 09/10/21 Yan Calderon MD 05/03/16
--- OUTSIDE RECORDS SUMMARY | 2024-06-25 13:31 | XMS_ITS | Encounter Summary ---
Author Organization [facility] Address [address] [place] [address] Care Team Providers Care Collection Advisor Name Role Phone Unavailable Primary Care Provider Unavailabl e Encounter Details Date Type Department Care Team (Late st Contact Info) Description 11/26/2008 Orders Only [facility] Laboratory Services - [facility] [address] [place], [place] [phone] Ivanna Oh ADAK, [place] [phone] Social History Tobacco Use Types Packs/Day Years Used Date Smoking Tobacco: Never Assessed Comments Unknown Sex and Gender Information Value Date Recorded Sex Assigned at Not on file Legal Sex Female 18:38 EST Gender Identity Not on file Sexual Orientation Not on file documented as of this encounter Plan of Treatment Not on file documented as of this encounter Procedures Procedure Name Priority Date/Time Associated Diagnosis Comments HPV DETECTION, HIGH RISK TYPES Routine 11/26/2008 11:00 EDT CYTOPATHOLOGY Routine 11/26/2008 0:00 EDT documented in this encounter Results * HUMAN PAPILLOMA VIRUS DNA TEST (11/26/2008 11:00 EDT) Specimen Description Cervix, ThinPrep vial [facility] Result Negative for HPV types 16, 18, 31, 33, 35, 39, 45, 51, 52, 56, 58, 59, and 68. [facility] Report Status Final 12/05/2008 [facility] 11/26/2008 11:0 0 EDT 12/03/2008 10:02 EDT us Ivanna Oh CNM MICROBIOLOGY - GENERAL ORDERAB LES Final Result [facility] [address] [place] [address] * CYTOPATHOLOGY (11/26/2008 0:00 EDT) Pathology Report: CYTOPATHOLOGY REPORT ? Reports generated via electronic interface contain original data; ? however they are lacking the format of the original report. ? Caution should be taken when reading/interpreti ng unformatted reports. ? Name: ? BEATRIZ BARRY ? Accession #: ? [id number] ? : ? 1985 (Age: 23) ??F ?Collect Date: ? 11/26/2008 ? Location: ? [facility] ? Receive Date: ? 11/27/2008 ? Provider: ?IVANNA OH CNM ? Copy to: ? Specimen/Source: ?Pap Test, Cervix/Endocervix, ThinPrep Imaging System ? with manual evaluation ? Last Menstrual Period: ? 04/26/09 ? Menstrual/Pregnanc y Status: ? Other: ? HPVA - HPV testing requested if ASC-US on the current ThinPrep Pap test. ? SPECIMEN ADEQUACY ? Satisfactory for Evaluation ? - transformation zone component present ? GENERAL CATEGORIZATION ? Epithelial Cell Abnormality ? INTERPRETATION ? Squamous Cell Abnormality - Atypical squamous cells, undetermined ? significance (ASC-US). ? EDUCATIONAL NOTES/RECOMMENDATI ONS ? [facility] recommends following the 2006 Consensus Guidelines for the Management of Women with Abnormal Cervical Cancer Screening Tests (JLGTD, ? 2007;11(4):201-222 ). ??Consensus guidelines are available online at ? www.ASCCP.org. ? Document reviewed and electronically signed by: ? Ivana L. Cruz, MD ? Report Date: ??12/02/2008 12:53 ? End of Report ? [facility] 11/26/2008 11/27/2008 us Ivanna Oh CNMely PATHOLOGY ORDERABLES Final Res ult [facility] [address] [place] [address] documented in this encounter Visit Diagnoses Not on filedocumented in this encounter
--- OUTSIDE RECORDS SUMMARY | 2024-06-25 13:31 | XMS_ITS | Encounter Summary ---
Author Organization [facility] Address [address] [place] [address] Care Team Providers Care Avionics Systems Technician Name Role Phone Yan Calderon MD Primary Care Provider Unavailabl e Encounter Details Date Type Department Care Team (Late st Contact Info) Description 10/12/2006 Results Only [facility] - Maple conversion [address] [place] [address] Christiane Putnam MD [address] [place] [phone] Social History Tobacco Use Types Packs/Day Years [...] Procedure Name Priority Date/Time Associated Diagnosis Comments CYTOPATHOLOGY Routine 10/12/2006 0:00 EDT documented in this encounter Results * CYTOPATHOLOGY (10/12/2006 0:00 EDT) Pathology Report: CYTOPATHOLOGY REPORT Reports generated via electronic interface contain original data; however they are lacking the format of the original report. Caution should be taken when reading/interpreti ng unformatted reports. Name: ? BEATRIZ BARRY ? Accession #: ? [id number] : ? 1985 (Age: 21) ??F ?Collect Date: ? 10/12/2006 Location: ? [facility] ? Receive Date: ? 10/13/2006 Provider: ?CHRISTIANE PUTNAM MD Copy to: ? Specimen/Source: ?ThinPrep Pap Test, Cervix/Endocervix, processed on [employer] ThinPrep Imaging System, with manual evaluation Last Menstrual Period: ? 11/09 Menstrual/Pregnanc y Status: ? Post Hormonal/Contracep tive Status: ? Condoms Other: ? HPVA - HPV testing requested if ASC-US on the current ThinPrep Pap test. ? SPECIMEN ADEQUACY ? Satisfactory for Evaluation - transformation zone component present GENERAL CATEGORIZATION ? Negative for Intraepithelial Lesion or Malignancy ? Document reviewed and electronically signed by: ? STEPHANY Ford(ASCP) ? Report Date: ??10/17/2006 11:18 End of Report [facility] 10/12/2006 10/13/2006 us Christiane Putnam MD PATHOLOGY ORDERABLES Final Resul t [facility] [address] [place] [address] documented in this encounter Visit Diagnoses Not on filedocumented in this encounter Care Teams Avionics Systems Technician Relationship Specialty Start Date End Date Yan Calderon MD PCP - General 12/04/08 05/02/16 documented as of this encounter
--- OUTSIDE RECORDS SUMMARY | 2024-06-25 13:31 | XMS_ITS | Encounter Summary ---
Author Organization [facility] Address [address] [place] [address] Care Team Providers Care Stenographer Secretary Name Role Phone Yan Calderon MD Primary Care Provider Unavailabl e Encounter Details Date Type Department Care Team (Late st Contact Info) Description 07/23/2010 Results Only [facility] Laboratory Services - [facility] [address] [place] [phone] Mar Alvarez MD [facility] [address] [place], [place] [address] Social History Tobacco Use Types Packs/Day Years [...] Priority Date/Time Associated Diagnosis Comments CYTOPATHOLOGY Routine 07/23/2010 0:00 EST documented in this encounter Results * CYTOPATHOLOGY (07/23/2010 0:00 EST) Pathology Report: CYTOPATHOLOGY REPORT ? Reports generated via electronic interface contain original data; ? however they are lacking the format of the original report. ? Caution should be taken when reading/interpreti ng unformatted reports. ? Name: ? BEATRIZ BARRY ? Accession #: ? [id number] ? : ? 1985 (Age: 25) ??F ?Collect Date: ? 07/23/2010 ? Location: ? [facility] ? Receive Date: ? 07/24/2010 ? Provider: ?MAR READY MD ? Copy to: ? Specimen/Source: ?Pap Test, Cervix/Endocervix, ThinPrep Imaging System ? with manual evaluation ? Last Menstrual Period: ? 2/10/11 ? Hormonal/Contracep tive Status: ? Intrauterine device: mirena ? Previous Gynecologic Pathology: ? ASC-US: 6/24/09 HPV negative ? SPECIMEN ADEQUACY ? Satisfactory for Evaluation ? - transformation zone component present ? - scant squamous epithelial component secondary to excessive blood ? GENERAL CATEGORIZATION ? Negative for Intraepithelial Lesion or Malignancy ? INTERPRETATION ? Reactive cellular changes associated with inflammation present (includes ?? repair). ? Document reviewed and electronically signed by: ? ABDELMONEM ELHOSSEINY MD ? Report Date: ??07/29/2010 16:11 ? End of Report ? [facility] 07/23/2010 07/24/2010 us Mar Alvarez MD PATHOLOGY ORDERABLES Final Resul t [facility] [address] [place] [address] documented in this encounter Visit Diagnoses Not on filedocumented in this encounter Care Teams Stenographer Secretary Relationship Specialty Start Date End Date Yan Calderon MD PCP - General 12/04/08 05/02/16 documented as of this encounter
--- OUTSIDE RECORDS SUMMARY | 2024-06-25 13:31 | XMS_ITS | Encounter Summary ---
Author Organization [facility] Address [address] [place] [address] Care Team Providers Care Rounding Machine Tender Name Role Phone Toll, Yan LACKEY Unavailable Unavailable Unknown, Provider Primary Care Provider Unava ilable Reason for Visit * Reason Onset Date Comments Allergic Reaction 09/02/2017 calm water gel Encounter Details Date Type Department Care Team (Late st Contact Info) Description 09/02/2017 Telephone [facility] Dermatology 5th Floor [facility] [address] [place], [place] [address] Deepti Ortega, RN [address] [place], [place] [phone] Allergic Reaction ( calm water gel) Social History Tobacco Use Types Packs/Day Years Used Date Smoking Tobacco: Never Assessed Comments Unknown Sex and Gender Information Value Date Recorded Sex Assigned at Not on file Legal Sex Female 18:38 EST Gender Identity Not on file Sexual Orientation Not on file documented as of this encounter Miscellaneous Notes * Telephone Encounter - Deepti Ortega - 09/29/2017 1410 EDT Called patient to check on her skin state. She is doing much better and is using the barrier repairdaily. Conrad Miles 09/29/2017 14:11 * Telephone Encounter - Deepti Ortega - 09/02/2017 0939 EDT Called and spoke to patient about symptoms. Patient is not reactive to the ultra calming cleanser, intensive moisture balance, or supersensitive shield SPF 30. I had applied these to the patient in the exam room during her clinic visit with no reaction. Patient reported using these item for a few days with no reaction. Patient had taken a couple samples of calm water gel on the way out. She started to apply calm water gel on Tuesday. Patient states the reaction began when she started applying the calm water gel. I advised the patient to stop using the calm water gel. She is ok to continue using the other 3 products as they were non-reactive to her skin for multiple days of use prior to the use of the calm water gel. Patient Education Topic: products Method: Verbal Taught to: Patient Barriers: None Outcomes: independent Conrad Miles 09/02/2017 10:09 * Telephone Encounter - Rashmi Louis RN - 09/02/2017 0910 EDT Patient reports: She applied Ultra Calming cleanser and lotion to her face Face is red and peeling Patient instructed to stop using all of the products at this time Triage note to Deepti Ortega, Medical Electrical Appliance Servicer to address patient's concerns RASHMI LOUIS RN 09/02/2017 9:14 * Telephone Encounter - Melony Boyd - 09/02/2017 0909 EDT Patient states that she saw Deepti Ortega recently and is reacting to her products documented in this encounter Plan of Treatment Not on file documented as of this encounter Visit Diagnoses Not on filedocumented in this encounter Care Teams Rounding Machine Tender Relationship Specialty Start Date End Date Unknown, MD Mikaela PCP - General 08/24/17 09/09/21 Yan Calderon MD 05/03/16 documented as of this encounter
--- OUTSIDE RECORDS SUMMARY | 2024-06-25 13:31 | XMS_ITS | Encounter Summary ---
Author Organization [facility] Address [address] [place] [address] Care Team Providers Care Agricultural Services Director Name Role Phone Unknown, Provider Primary Care Provider Yan Jones MD Unavailable Unavailable Encounter Details Date Type Department Care Team (Late st Contact Info) Description 06/15/2016 Results Only [facility]- [facility] [phone] Maryanne Alcala MD [address] [place] [address] Social History Tobacco Use Types Packs/Day Years [...] Name Priority Date/Time Associated Diagnosis Comments PAP TEST- RESULT ONLY Routine 06/15/2016 0:00 EST documented in this encounter Results * PAP TEST- RESULT ONLY (06/15/2016 0:00 EST) Pathology Report: CYTOPATHOLOGY REPORT Reports generated via electronic interface contain original data; however they are lacking the format of the original report. Caution should be taken when reading/interpreti ng unformatted reports. Name: ? BEATRIZ VERAS ? Accession #: ? [id number] ? : ? 1985 (Age: 31) ??F ?Collect Date: ? 06/15/2016 ? Location: ? [facility] ? Receive Date: ? 06/16/2016 ? Provider: MARYANNE ALCALA MD Copy to: HANNAH BELTRAN PA-C ? Final Report SPECIMEN ADEQUACY ? Satisfactory for Evaluation - transformation zone component present GENERAL CATEGORIZATION ? Epithelial Cell Abnormality INTERPRETATION ? Squamous Cell Abnormality - Atypical squamous cells, undetermined significance (ASC-US). EDUCATIONAL NOTES/RECOMMENDATI ONS ? [facility] recommends following ASCCP's 2012 Updated Consensus Guidelines for the Management of Abnormal Cervical Cancer Screening Tests and Cancer Precursors (JLGTD, 2013; 17(5):S1-S27). ??Consensus guidelines are available online at www.asccp.org. Menstrual/Pregnanc y Status: ??Post Other: Previous NIL Pap(s): 2014 Specimen/Source: ??Pap Test, Cervix, ThinPrep Imaging System with manual evaluation Document reviewed and electronically signed by: ? WENDY SALMERON MD ? Report ??Date: 06/21/2016 12:42 HPV with Pap Test ? Date Ordered: ? 06/21/2016 ? Status: ?? Signed Out ?Date Complete: ? 06/22/2016 ? By: ??System Interface ? Date Reported: ? 06/22/2016 ? Interpretation RESULT: Positive for high or intermediate risk HPV. E6 OR E7 mRNA from one or more types of HPV types 16,18,31, 33,35,39,45,51,52, 56,58,59,66, and 68 is detected by pets salesperson mediated amplification. High and intermediate risk HPV types are associated with most squamous intraepithelial lesions and cervical cancers. Comments Document reviewed and electronically signed by: ? System Interface ? Report date: 06/22/2016 By the signature above, the attending physician certifies that he/she has personally conducted a gross and/or microscopic examination of the described specimens and rendered or confirmed the above diagnosis. End of Report [facility] 06/15/2016 06/16/2016 us Maryanne Alcala MD PATHOLOGY ORDERABLES Final Resu lt [facility] [address] [place] [address] documented in this encounter Visit Diagnoses Not on filedocumented in this encounter Care Teams Agricultural Services Director Relationship Specialty Start Date End Date Unknown, MD Mikaela PCP - General 05/03/16 06/30/16 Yan Calderon MD 05/03/16 documented as of this encounter
--- OUTSIDE RECORDS SUMMARY | 2024-06-25 13:31 | XMS_ITS | Encounter Summary ---
Author Organization [facility] Address [address] [place] [address] Care Team Providers Care Paid Search Analyst Name Role Phone Yan Calderon MD Primary Care Provider Unavailabl e Encounter Details Date Type Department Care Team (Late st Contact Info) Description 02/14/2006 Results Only [facility] - Maple conversion [address] [place] [address] Christiane Putnam MD [address] [place] [phone] Social History Tobacco Use Types Packs/Day [...] Priority Date/Time Associated Diagnosis Comments CYTOPATHOLOGY Routine 02/14/2006 0:00 EDT documented in this encounter Results * CYTOPATHOLOGY (02/14/2006 0:00 EDT) Pathology Report: CYTOPATHOLOGY REPORT Reports generated via electronic interface contain original data; however they are lacking the format of the original report. Caution should be taken when reading/interpreti ng unformatted reports. Name: ? BEATRIZ BARRY ? Accession #: ? [id number] : ? 1985 (Age: 20) ??F ?Collect Date: ? 02/14/2006 Location: ? [facility] ? Receive Date: ? 02/15/2006 Provider: ?CHRISTIANE PUTNAM MD Copy to: ? Specimen/Source: ?ThinPrep Pap Test, Vagina/Cervix, processed on [email or web address] ThinPrep Imaging System, with manual evaluation Last Menstrual Period: ? 11/14/05 Menstrual/Pregnanc y Status: ? Other: ? HPVA - HPV testing requested if ASC-US on the current ThinPrep Pap test. ? SPECIMEN ADEQUACY ? Satisfactory for Evaluation - transformation zone component present GENERAL CATEGORIZATION ? Negative for Intraepithelial Lesion or Malignancy ? Document reviewed and electronically signed by: ? STEPHANY Perkins(ASCP) ? Report Date: ??02/16/2006 14:01 End of Report [facility] 02/14/2006 02/15/2006 us Christiane Putnam MD PATHOLOGY ORDERABLES Final Resul t [facility] [address] [place] [address] documented in this encounter Visit Diagnoses Not on filedocumented in this encounter Care Teams Paid Search Analyst Relationship Specialty Start Date End Date Yan Calderon MD PCP - General 12/04/08 05/02/16 documented as of this encounter
--- OUTSIDE RECORDS SUMMARY | 2024-06-25 13:31 | XMS_ITS | Encounter Summary ---
Author Organization [facility] Address [address] [place] [address] Care Team Providers Care Legal Intern Name Role Phone Iban Calderon MD Primary Care Provider Unavailabl e Encounter Details Date Type Department Care Team (Late st Contact Info) Description 05/02/2013 Results Only [facility] Services - [address] [address] Ting Pemberton, MANAGER TRACK Social History Tobacco Use Types Packs/Day Years [...] Diagnosis Comments PAP TEST- RESULT ONLY Routine 05/02/2013 0:00 EST documented in this encounter Results * PAP TEST- RESULT ONLY (05/02/2013 0:00 EST) Pathology Report: CYTOPATHOLOGY REPORT Reports generated via electronic interface contain original data; however they are lacking the format of the original report. Caution should be taken when reading/interpreti ng unformatted reports. Name: ? BEATRIZ BARRY ? Accession #: ? [id number] : ? 1985 (Age: 27) ??F ?Collect Date: ? 05/02/2013 Location: ? [facility] ? Receive Date: ? 05/09/2013 Provider: ?TING PEMBERTON MANAGER TRACK Copy to: ?IBAN CALDERON MD ? Specimen/Source: ?Pap Test, Cervix/Endocervix, ThinPrep Imaging System with manual evaluation Last Menstrual Period: ? Previous Gynecologic Pathology: ? ASC-US: PY HX 2009 Other: ? Additional clinical information: NEG HPV, PAP 2011 NEG ? SPECIMEN ADEQUACY ? Satisfactory for Evaluation - transformation zone component present GENERAL CATEGORIZATION ? Negative for Intraepithelial Lesion or Malignancy ? Document reviewed and electronically signed by: ? Dion Fan, STEPHANY(ASCP) ? Report Date: ??05/10/2013 16:26 End of Report [facility] 05/02/2013 05/09/2013 us Ting Pemberton NP PATHOLOGY ORDERABLES Final Re sult [facility] [address] [place] [address] documented in this encounter Visit Diagnoses Not on filedocumented in this encounter Care Teams Legal Intern Relationship Specialty Start Date End Date Iban Calderon MD PCP - General 12/04/08 05/02/16 documented as of this encounter
--- OUTSIDE RECORDS SUMMARY | 2024-06-25 13:31 | XMS_ITS | Encounter Summary ---
Author Organization [facility] Address [address] [place] [address] Care Team Providers Care Cupola Melting Supervisor Name Role Phone Yumiko, Yan LACKEY Unavailable Unavailable Unknown, Provider Primary Care Provider Unava ilable Reason for Visit * Reason Comments Cosmetic Consult telangiectasia's/ ba ckground redness * Consult (Routine) - Closed Specialty Diagnoses / Procedures Referred By Contac t Referred To Contact Dermatology Diagnoses Rosacea, unspecified Ruby Carrasco MD [address] [place] [address] [address] [address] Phone: tel: fax: [facility] Dermatology 5th [address] [address] Phone: tel: fax: Referral ID Status Reason Start Date Expiration Date Visits Re quested Visits Authorized [id number] Closed 1 1 Encounter Details Date Type Department Care Team (Late st Contact Info) Description 08/26/2017 13:00 EDT Office Visit [facility] Dermatology 3rd [address] [phone] Unknown, Provider, Lizandro Talobt MD [address] [place] [address], [facility] [address] [place] [phone] Deepti Ortega RN [address] [place] [address] [phone] Elective procedure for unacceptable cosmetic appearance (Primary Dx) Social History Tobacco Use Types Packs/Day Years Used Date Smoking Tobacco: Never Assessed Comments Unknown Sex and Gender Information Value Date Recorded Sex Assigned at Not on file Legal Sex Female 18:38 EST Gender Identity Not on file Sexual Orientation Not on file documented as of this encounter Patient Instructions * Patient Instructions* Deepti Ortega - 08/26/2017 13:00 EDT Recommendations for Sun Protection Ultraviolet (UV) radiation is a known carcinogen (cancer-causing agent) and is primarily responsible for most skin cancers, including Basal Cell Carcinoma, Squamous Cell Carcinoma, and many Melanomas. UV radiation also rapidly ages the skin, leading to wrinkles, uneven color, and poor texture. Minimizing UV exposure has been shown in multiple studies to decrease the likelihood of developing cancers and pre-cancers of the skin, as well as improve overall appearance. To minimize UV exposure: 1) Avoid exposure to sunlight during the middle of the day (10am to 4pm). Seek shade when outside during these hours. Limit outdoor activities to air conditioning mechanic and/or evening hours when the sunlight is less intense. Remember that UV is reflected from water and snow, and can pass through window glass. It is still possible to get burned during cloudy weather and in the winter months. You can check the forecast for the UV Index in your area at most weather sites online. If the UV index is 3 or higher, sun protection/avoidance is recommended. 2) Wear protective clothing. Hats with wide brims that cover the ears and neck, sunglasses (sun exposure increases your risk for cataracts), long-sleeved shirts, long pants, and closed-top shoes offer good protection. Many makers of outdoor clothing test their fabrics for UV Protection Factor (UPF), which is a guide to the level of protection a particular item of clothing should provide. In general, loose weaves (Cotton) and utility driver-colored fabrics offer less protection than tighter weaves or darker/thicker fabrics. It is possible to get a sunburn through clothing, especially if it is wet. 3) Use sunscreen on exposed areas. Choose a sunscreen that has a Sun Protection Factor (SPF) of 30+or higher. Apply the sunscreen generously (so much that you can barely rub it in) to exposed areas 30 minutes before sun exposure. Reapply every 2-3 hours, especially if you are in water or sweating.If you tend to break out from sunscreen, choose a sunscreen designed for Sensitive Skin and/or one with physical blocking agents, such as Zinc Oxide and Titanium Dioxide. For vigorous activity, look for Sport sunscreens, which are resistant to sweating. 4) Avoid artificial sources of UV, such as tanning beds or sun lamps. The UV emitted by these devices is just as damaging, if not more so, than natural sunlight. There is a well-documented increase in the incidence of all common skin cancers in frequent tanning bed users. Other considerations: Vitamin D: Exposure to UV light is one of the ways your body gets Vitamin D, a necessary nutrient. Other sources are from the diet and/or dietary supplements. If you are actively avoiding the sun, itmay be advisable to discuss Vitamin D supplementation with your Primary Care Provider (PCP). In general, taking a supplement of 1,000 to 2,000 International Units (IU) of Vitamin D3 is safe and well-tolerated in individuals who get minimal sun exposure and have normal kidney function. However, moreor less Vitamin D may be recommended, depending on your individual needs, and the use of such supplements should be discussed with your PCP. For more information about sun protection and skin cancer: www.skincancer.org Recommended sunscreens: Chemical sunscreen Neutrogena Ultra Sheer Dry Touch (helioplex) Aveeno (same sunscreen as in Neutrogena) Coppertone Sport La Zach-Posay Anthelios (mexoryl -good UVA and UVB) Vichy (mexoryl - available in Lena) Gel formulations good for hair bearing skin Bullfrog Alcohol based - goes on quickly and good for skin with hair Solbar Physical sunblock good for sensitive skin (titanium dioxide and zinc oxide chemical/fragrance free) Blue Lizard sensitive COTZ TiZO (comes in tinted form) Neutrogena pure and free baby or sensitive Recommended sun protection clothing websites www.sunprecautions.Spokeable www.coolibar.Spokeable www.Barosense www.Newgistics.Spokeable VASCULAR LASER (VBEAM) PATIENT INSTRUCTIONS Care instructions are to be followed throughout the course of your treatment. Failure to follow these instructions may diminish the effectiveness of your laser treatment or lead to an adverse outcome. WHAT DOES THE VBEAM TREAT? The Vbeam (vascular) laser is ideal for treating blood vessels and unwanted redness. This includes port wine stains, broken blood vessels (telangiectasia), angiomas and rosacea. WHAT IS THE PROCEDURE LIKE? Treatments are mildly to moderately uncomfortable. There is no lingering pain with this procedure. The laser does not break the surface of the skin. The skin cannot be numbed prior to treatment as this diminishes the effectiveness of the laser. WHAT SHOULD BE AVOIDED BEFORE AND AFTER THE LASER TREATMENT? You cannot have treatment if you are huff, as the huff will block the laser, and it will not work. You should not huff or go in the sun for one week after the treatment as this can result in unwanted discoloration. Avoid saunas, hot tubs, or any form of high heat on the face for 24 hours after your procedure. HOW OFTEN WILL I NEED TREATMENT? Most patients receive 1-3 treatments, by 4-6 weeks and then receive a single, maintenancetreatment every 6-12 months. EXPECTATIONS AND CARE OF THE LASER TREATED AREA: ??? BRUISING is common for treatment of port wine stains, flushing and angiomas. It will resolve in7-10 days. This is called purpura. ??? SWELLING is common for treatment of blood vessels and rosacea. This is worst for the first three days and on the face can make the eyes very puffy. ??? Apply Vaseline to the treated area 2-3 times a day for 7-10 days. ??? After showering gently pat the area dry. Do not rub with a towel or washcloth. ??? Use Tylenol as per escapement maker recommendations for discomfort. ??? Use an ice pack or frozen vegetables wrapped in a soft cloth and applied to the treated area for 10 minutes per hour if needed. PRECAUTIONS TO TAKE FOLLOWING YOUR LASER TREATMENT: ??? Avoid pressure from tight clothes. Example: if the treated area is on the neck, do not wear a turtleneck while purpura is present. ??? Avoid contact sports or excessive sweating during the time the purpura is present. ??? Avoid rubbing the treated area with a face cloth. Gently pat the area dry promptly after washing. CONTACT YOUR LASER PHYSICIAN IF ANY OF THE FOLLOWING OCCUR: ?? The treated area has purulent drainage (pus containing discharge) ?? The treated area becomes tender/painful ?? You develop a fever and/or chills Please call our office [phone] or if you have any questions or concerns documented in this encounter Progress Notes * Deepti Ortega - 08/26/2017 1300 EDT Dermatology Cosmetic Consult Outpatient Visit Note Chief Complaint Patient presents with ??? Cosmetic Consult Problem List: 1. Telangiectasia's 2. Skin care SUBJECTIVE Ms. Veras is a 32 y.o. female who presents for new evaluation and treatment for telangiectasia's and skin care. Patient reports using caress bar soap on her face as a cleanser, she does not use a moisturizer or sunscreen. For full Medical, Surgical, Family, and Social histories, please see the History section of this encounter in the electronic chart which I have personally reviewed. For Review of Systems, Medications and Allergies, please see those sections of this encounter in the electronic chart which I have also reviewed. OBJECTIVE VS: There were no vitals taken for this visit. Ms. Veras is healthy female with a normal affect. She is alert and interactive. She has a Eric I skin phenotype. She has cosmetic concerns regarding the telangiectasia's on her bilateral cheeks and her skin care regimen. She has background redness present on her bilateral cheeks, chin, over nose and forehead. Her skin appears dry and dehydrated. ASSESSMENT 1. Telangiectasia's- bilateral cheeks 2. Skin condition- dry, dehydrated, irritated PLAN 1. PDL- We discussed vascular laser. We discussed the need to stay out of the sun 1 month prior and2 months following the procedure to reduce the chance of pigmentary changes. I discussed there is aless than 1% chance of scarring. I discussed that there is immediate bruising following the procedure that typically fades within 7 to 10 days. Photographs were shown. I highlighted the need to avoidshearing trauma to the skin after the procedure to reduce the chance of scarring. I recommended a 15-minute vascular laser appointment and quoted a allen of $250. Patient will call to schedule when she is ready to be treated. Skin care- I introduced the patient to [employer]ermalog[employer]. I advised her to use ultra calming cleanser am/pm, gentle cream exfoliant twice weekly at night, intensive moisture balance nightly, and super sensitive shield SPF 30 daily. I explained the process of exfoliation to the patient and over time will help decrease with hyperpigmentation, fine lines, and milia. I taught the patient how to apply and remove all products. The patient was very happy with the results in clinic with the products tested. The patient had no reaction to any of the products tested during the duration of her visit with me. I gave the patient trial sizes of the above listed products to try at home Patient Education Topic: skin care/sun protection/ vascular laser Method: Verbal Taught to: Patient Barriers: None Outcomes: independent Ms. Veras will f/u as planned or in the interim should problems arise. Conrad Miles 08/31/2017 9:38 documented in this encounter Plan of Treatment Not on file documented as of this encounter Visit Diagnoses Diagnosis Elective procedure for unacceptable cosmetic appearance- Primary Other plastic surgery for unacceptable cosmetic appearance documented in this encounter Care Teams Cupola Melting Supervisor Relationship Specialty Start Date End Date Unknown, Provider, PCP - General 08/24/17 09/09/21 Yan Calderon MD 05/03/16 documented as of this encounter
--- OUTSIDE RECORDS SUMMARY | 2024-06-25 13:31 | XMS_ITS | Encounter Summary ---
Author Organization [facility] Address [address] [place] [address] Care Team Providers Care Tile Mason Name Role Phone Yan Calderon MD Primary Care Provider Unavailabl e Encounter Details Date Type Department Care Team (Late st Contact Info) Description 10/11/2007 Results Only [facility] [address] [place] [address] Christiane Putnam MD [address] [place] [phone] Social History Tobacco Use Types Packs/Day [...] Priority Date/Time Associated Diagnosis Comments CYTOPATHOLOGY Routine 10/11/2007 0:00 EDT documented in this encounter Results * CYTOPATHOLOGY (10/11/2007 0:00 EDT) Pathology Report: CYTOPATHOLOGY REPORT Reports generated via electronic interface contain original data; however they are lacking the format of the original report. Caution should be taken when reading/interpreti ng unformatted reports. Name: ? BEATRIZ BARRY ? Accession #: ? [id number] : ? 1985 (Age: 22) ??F ?Collect Date: ? 10/11/2007 Location: ? [facility] ? Receive Date: ? 10/12/2007 Provider: ?CHRISTIANE PUTNAM MD Copy to: ? Specimen/Source: ?ThinPrep Pap Test, Cervix/Endocervix, processed on [employer] ThinPrep Imaging System, with manual evaluation Last Menstrual Period: ? 09/16/07 Other: ? HPVA - HPV testing requested if ASC-US on the current ThinPrep Pap test. ? SPECIMEN ADEQUACY ? Satisfactory for Evaluation - transformation zone component present GENERAL CATEGORIZATION ? Negative for Intraepithelial Lesion or Malignancy ? Document reviewed and electronically signed by: ? STEPHANY Perkins(ASCP) ? Report Date: ??10/13/2007 15:26 End of Report [facility] 10/11/2007 10/12/2007 us Christiane Putnam MD PATHOLOGY ORDERABLES Final Resul t [facility] [address] [place] [address] documented in this encounter Visit Diagnoses Not on filedocumented in this encounter Care Teams Tile Mason Relationship Specialty Start Date End Date Yan Calderon MD PCP - General 12/04/08 05/02/16 documented as of this encounter
--- OUTSIDE RECORDS SUMMARY | 2024-06-25 13:31 | XMS_ITS | Encounter Summary ---
Author Organization [facility] Address [address] [place] [address] Care Team Providers Care Dictating Machine Typist Name Role Phone Yan Calderon MD Unavailable Unavailable Yan Calderon MD Primary Care Provider Unavailabl e Encounter Details Date Type Department Care Team (Late st Contact Info) Description 08/03/2017 Results Only [facility] [phone] Dina Newman MD [facility] [place], [place] [id number] Social History Tobacco Use Types Packs/Day Years [...] Diagnosis Comments PAP TEST- RESULT ONLY Routine 08/03/2017 0:00 EST documented in this encounter Results * PAP TEST- RESULT ONLY (08/03/2017 0:00 EST) Pathology Report: CYTOPATHOLOGY REPORT Reports generated via electronic interface contain original data; however they are lacking the format of the original report. Caution should be taken when reading/interpret ing unformatted reports. Name: ? BEATRIZ VERAS ? Accession #: ? [id number] ? : ? 1985 (Age: 32) ??F ?Collect Date: ? 08/03/2017 ? Location: ? [facility] ? Receive Date: ? 08/04/2017 ? Provider: DINA NEWMAN MD Copy to: HANNAH BELTRAN PA-C ? Final Report SPECIMEN ADEQUACY ? Satisfactory for Evaluation - transformation zone component present GENERAL CATEGORIZATION ? Epithelial Cell Abnormality INTERPRETATION ? Squamous Cell Abnormality - Atypical squamous cells, undetermined significance (ASC-US). EDUCATIONAL NOTES/RECOMMENDAT IONS ? [facility] recommends following ASCCP's 2012 Updated Consensus Guidelines for the Management of Abnormal Cervical Cancer Screening Tests and Cancer Precursors (JLGTD, 2013; 17(5):S1-S27). ??Consensus guidelines are available online at www.asccp.org. Last Menstrual Period: 07/21/17 Hormonal/Contrace ptive status: Intrauterine device Infection History: Pos for HPV Specimen/Source: ??Pap Test, Cervix/Endocervix , ThinPrep Imaging System with manual evaluation Document reviewed and electronically signed by: ? WENDY SALMERON MD ? Report ??Date: 08/17/2017 09:51 HPV with Pap Test ? Date Ordered: ? 08/14/2017 ? Status: ?? Signed Out ?Date Complete: ? 08/18/2017 ? By: ??System Interface ? Date Reported: ? 08/18/2017 ? Interpretation RESULT: Negative for HPV. No E6 or E7 mRNA is detected from HPV types 16,18,31,33,35, 39,45,51,52,56,58 ,59,66, and 68 by product design specialist mediated amplification. Comments Document reviewed and electronically signed by: ? System Interface ? Report date: 08/18/2017 By the signature above, the attending physician certifies that he/she has personally conducted a gross and/or microscopic examination of the described specimens and rendered or confirmed the above diagnosis. End of Report [facility] 08/03/2017 08/04/2017 us Dina Newman MD PATHOLOGY ORDERABLES Final Res ult [facility] [address] [place] [address] documented in this encounter Visit Diagnoses Not on filedocumented in this encounter Care Teams Dictating Machine Typist Relationship Specialty Start Date End Date Yan Calderon MD PCP - General 07/01/16 08/23/17 Yan Calderon MD 05/03/16 documented as of this encounter
--- OUTSIDE RECORDS SUMMARY | 2024-06-25 13:31 | XMS_ITS | Encounter Summary ---
Author Organization [facility] Address [address] [place] [address] Care Team Providers Care Salesforce Specialist Name Role Phone Unknown, Provider Primary Care Provider Teriva ilYan Sousa MD Unavailable Unavailable Encounter Details Date Type Department Care Team (Late st Contact Info) Description 05/03/2016 Results Only [facility] [place] [phone] Rhea Alcala MD [address] [place] [phone] Social History Tobacco Use Types Packs/Day Years [...] Procedure Name Priority Date/Time Associated Diagnosis Comments SCREEN TEST Routine 05/03/2016 7:30 EST documented in this encounter Results * SCREEN TEST (05/03/2016 7:30 EST) Screen Test NEGATIVE [facility] 05/03/2016 7:30 EST us Rhea Alcala MD BLOOD BANK TESTS Final Result [facility] [address] [facility] [place] [address] documented in this encounter Visit Diagnoses Not on filedocumented in this encounter Care Teams Salesforce Specialist Relationship Specialty Start Date End Date Unknown, Provider, PCP - General 05/03/16 06/30/16 Yan Calderon MD 05/03/16 documented as of this encounter
--- OUTSIDE RECORDS SUMMARY | 2024-06-25 13:31 | XMS_ITS | Encounter Summary ---
Author Organization [facility] Address [address] [place] [address] Care Team Providers Care Weapons Designer Name Role Phone Unknown, Provider Primary Care Provider Yan Jones MD Unavailable Unavailable Encounter Details Date Type Department Care Team (Late st Contact Info) Description 06/29/2016 Results Only [facility] [phone] Maryanne Alcala MD [address] [place] [phone] Social History Tobacco Use Types Packs/Day Years [...] Priority Date/Time Associated Diagnosis Comments SURGICAL PATHOLOGY Routine 06/29/2016 9:13 EST documented in this encounter Results * SURGICAL PATHOLOGY (06/29/2016 9:13 EST) Pathology Report: SURGICAL PATHOLOGY REPORT Reports generated via electronic interface contain original data; however they are lacking the format of the original report. Caution should be taken when reading/interpret ing unformatted reports. Name: ? BEATRIZ VERAS ? Accession #: ? [id number] ? : ? 1985 (Age: 31) ??F ? Collect Date: ? 06/29/2016 ? Location: ? [facility] ? Receive Date: ? 06/29/2016 ? Provider: MARYANNE ALCALA MD Copy to: HANNAH BELTRAN PA-C ? Final Pathologic Diagnosis: A. CERVIX, 3 O'CLOCK, BIOPSY: - ??Benign squamous mucosa. B. ENDOCERVIX, CURETTAGE: - ??Benign squamous metaplasia. - ??Benign endocervical tissue with microglandular hyperplasia. Document reviewed and electronically signed by: LEAH EASTON MD Report ??Date: 07/02/2016 13:40 By the signature above, the attending physician certifies that he/she has personally conducted a gross and/or microscopic examination of the described specimens and rendered or confirmed the above diagnosis. Specimen(s) Received: A. ?Ectocervix 3 o'clock B. ? ECC Clinical History: Colposcopy; 06/15/16 ASCUS/(+) HPV Pap, 6 wks ; GDMA2 in recent ; low risk Pap hx, on Gardasil Gross Description: A. ?Received in formalin labelled with proper patient identification (initials N, J) and ectocervix 3 o'clock is a single huff-white tissue fragment (0.5 x 0.3 x 0.2 cm). Submitted intact in A1. B. ?Received in formalin labelled with proper patient identification (initials N, J) and ECC is an aggregate of pale huff soft tissue and mucus (2.8 x 1.7 x 0.5 cm). Submitted in toto in B1 and B2. ORIN Coronado (ASCP) 06/30/2016 10:22 AM End of Report [facility] 06/29/2016 9:13 EST 06/29/2016 9:13 EST us Maryanne Alcala MD PATHOLOGY ORDERABLES Final Resu lt [facility] [address] [place] [id number] documented in this encounter Visit Diagnoses Not on filedocumented in this encounter Care Teams Weapons Designer Relationship Specialty Start Date End Date Unknown, Provider, PCP - General 05/03/16 06/30/16 Yan Calderon MD 05/03/16 documented as of this encounter
--- OUTSIDE RECORDS SUMMARY | 2024-06-25 13:31 | XMS_ITS | Encounter Summary ---
Author Organization [facility] Address [address] [place] [address] Care Team Providers Care Catering Coordinator Name Role Phone Iban Calderon MD Primary Care Provider Unavailabl e Encounter Details Date Type Department Care Team (Late st Contact Info) Description 05/06/2014 Results Only [facility] - [address] [address] Ting Pemberton, SITE PROMOTION AGENT Social History Tobacco Use Types Packs/Day Years [...] Diagnosis Comments PAP TEST- RESULT ONLY Routine 05/06/2014 0:00 EST documented in this encounter Results * PAP TEST- RESULT ONLY (05/06/2014 0:00 EST) Pathology Report: CYTOPATHOLOGY REPORT Reports generated via electronic interface contain original data; however they are lacking the format of the original report. Caution should be taken when reading/interpreti ng unformatted reports. Name: ? BEATRIZ BARRY ? Accession #: ? [id number] : ? 1985 (Age: 28) ??F ?Collect Date: ? 05/06/2014 Location: ? [facility] ? Receive Date: ? 05/07/2014 Provider: ?TING PEMBERTON SITE PROMOTION AGENT Copy to: ?IBAN CALDERON MD ? Specimen/Source: ?Pap Test, Cervix/Endocervix, ThinPrep Imaging System with manual evaluation Last Menstrual Period: ? Hormonal/Contracep tive Status: ? Yes: MIRENA Previous Gynecologic Pathology: ? ASC-US: 2009 Other: ? Additional clinical information: Neg HPV 2009 ? SPECIMEN ADEQUACY ? Satisfactory for Evaluation - transformation zone component present GENERAL CATEGORIZATION ? Negative for Intraepithelial Lesion or Malignancy INTERPRETATION ? Reactive cellular changes associated with inflammation present (includes repair). ? Document reviewed and electronically signed by: ? MIKAYLA MUÑIZ MD ? Report Date: ??05/13/2014 15:23 End of Report [facility] 05/06/2014 05/07/2014 us Ting Pemberton SITE PROMOTION AGENT PATHOLOGY ORDERABLES Final Re sult [facility] [address] [place] [address] documented in this encounter Visit Diagnoses Not on filedocumented in this encounter Care Teams Catering Coordinator Relationship Specialty Start Date End Date Iban Calderon MD PCP - General 12/04/08 05/02/16 documented as of this encounter
[2024-06-25 15:45] LABS: Abs Immature Grans 0.01 10^3/uL (0.0-0.06); Absolute Basophil Count 0.04 10^3/uL (0.0-0.2); Absolute Lymphocyte Count 1.74 10^3/uL (1.2-3.4); Absolute Monocyte Count 0.35 10^3/uL (0.1-0.8); Absolute Neutrophil Count 3.26 10^3/uL (1.2-6.7); Basophils % 0.7 %; Eosinophils % 3.6 %; HCT 40.2 % (36.0-46.0); Immature Grans % 0.2 %; Lymphocytes % 31.1 %; MCH 29.9 pg (27.0-33.0); MCHC 34.8 % (32.0-36.0); MCV 86 fL (80-95); MPV 11.3 fL (8.0-11.0); Monocytes % 6.3 %; Neutrophils % 58.1 %; Platelet Count 188 10^3/uL (130-400); RBC 4.69 10^6/uL (3.93-5.22); RDW-SD 37.4 fL
[2024-06-25 15:48] LABS: Anion Gap 5.7 mmol/L (3-11); BUN 11 mg/dL (7-18); CO2 29.3 mmol/L (21.0-32.0); CREATININE 0.9 mg/dL (0.55-1.02); Calcium 9.2 mg/dL (8.5-10.1); Chloride 106 mmol/L (98-107); Estimated GFR 84.44 (mL/min/1.73m2); Glucose 109 mg/dL (74-106); Potassium 4.4 mmol/L (3.5-5.1); Sodium 141 mmol/L (136-145); TSH (W/Ref FT4) 0.51 uIU/mL (0.36-3.74)
[2024-06-25 15:57] LABS: Hemoglobin A1C 5.6 % (<5.7)
== END 2024-06-25 13:28 | disposition home or self-care (01) ==
LOC: NCHCN 13:27
PROVIDERS: PCP Physician Assistant Medical; Visit Provider Physician Assistant Medical
DX: I10 Essential (primary) hypertension (principal); R73.03 Prediabetes; E03.9 Hypothyroidism, unspecified
CPT/HCPCS: 80048; 83036; 84443; 85025

== ENCOUNTER 2025-04-30 16:38 | Outpatient (REF) | payer OTHER, SELFPAY ==
[2025-04-30 16:28] LABS: TSH (W/Ref FT4) 1.43 uIU/mL (0.55-4.78)
[2025-04-30 16:29] LABS: Vitamin B12 221 pg/mL (211-911)
[2025-05-01 10:02] LABS: Ro60 Ab, IgG <7.0 CU (<20.0); SS-A/Ro, IgG <2.3 CU (<20.0); SS-B (La) Ab, IgG <3.3 CU (<20.0)
== END 2025-04-30 16:39 | disposition home or self-care (01) ==
LOC: NCHCN 16:38
PROVIDERS: PCP Physician Assistant Medical; Visit Provider Physician Assistant Medical
DX: E03.9 Hypothyroidism, unspecified (principal); K13.6 Irritative hyperplasia of oral mucosa
CPT/HCPCS: 82607; 84443; 86235